=== PATIENT | male | born 1945 | race Caucasian/White ===

== ENCOUNTER 2016-08-18 07:24 | Day surgery (SDC) | payer OTHER ==
[~2016-08-18] VITALS: Ht 170.2 cm; Wt 71.2 kg
[~2016-08-18 07:24] MED LIST: ARTHRITIS MED; NADO20TA PO; PROSTATE MED
[2016-08-18 08:00] VITALS: BP 118/58; PULSE 61; RESP 16; Ht 170.2 cm; Wt 71.2 kg
[2016-08-18 08:33] LABS: ADD SCAN DIFF NO
[2016-08-18] MEDS ORDERED: MIDAZOLAM 1 MG/ML 2 ML INJ ONE (08:40)
[2016-08-18] MEDS ORDERED: FENTAnyl 50 MCG/ML VIAL ONE (08:40)
[2016-08-18] MEDS ORDERED: HEPARIN 1000 UNITS/NS (A-LINE) 1,000 ML ONE (08:40)
[2016-08-18] MEDS ORDERED: LIDOCAINE 1% (MDV) 20 ML INJ ONE (08:40)
[2016-08-18] MEDS ORDERED: FOLI-49 PO (08:43)
[2016-08-18] MEDS ORDERED: TAMS0.4C2 PO (08:43)
[2016-08-18] MEDS ORDERED: MECL-77 PO (08:43)
[2016-08-18] MEDS ORDERED: NADO20TA PO (08:43)
[2016-08-18] MEDS ORDERED: METF-730 PO (08:43)
[2016-08-18 08:49] LABS: ALBUMIN 4.2 g/dl (3.3-4.9)
[2016-08-18 08:51] LABS: POTASSIUM 4.4 mmol/L (3.5-5.1)
[2016-08-18 08:52] LABS: BILIRUBIN,INDIRECT 0.3 mg/dl (0-1.1); BILIRUBIN,TOTAL 0.3 mg/dl (0.2-1.3)
[2016-08-18 08:53] LABS: ALBUMIN/GLOBULIN RATIO 1.5
[2016-08-18 08:58] LABS: CALCIUM 9.4 mg/dl (8.4-10.2); CREATININE 0.74 mg/dl (0.61-1.24)
[2016-08-18 09:04] LABS: BASOPHIL # 0.1 10^3/ul (0.0-0.1); BASOPHILS % 0.8 % (0.0-2.0); EOSINOPHILS # 0.2 10^3/ul (0.0-0.5); EOSINOPHILS % 3.4 % (0.0-7.0); HEMATOCRIT 39.9 % (42.0-52.0); HEMOGLOBIN 13.7 g/dl (14.0-18.0); LYMPHOCYTES # 1.8 10^3/ul (0.8-2.9); LYMPHOCYTES % 28.9 % (15.0-51.0); MEAN CORPUSCULAR HEMOGLOBIN 30.2 pg (29.0-33.0); MEAN CORPUSCULAR HGB CONC 34.3 g/dl (32.0-37.0); MEAN CORPUSCULAR VOLUME 87.9 fl (82.0-101.0); MEAN PLATELET VOLUME 10.6 fl (7.4-10.4); MONOCYTE # 0.4 10^3/ul (0.3-0.9); MONOCYTES % 7.1 % (0.0-11.0); NEUTROPHIL # 3.7 10^3/ul (1.6-7.5); NEUTROPHILS % 59.6 % (39.0-77.0); PLATELET COUNT 181 10^3/UL (140-415); RED BLOOD COUNT 4.54 10^6/ul (4.70-6.10); RED CELL DISTRIBUTION WIDTH 12.7 % (11.5-14.5); WHITE BLOOD COUNT 6.2 10^3/ul (4.8-10.8)
[2016-08-18 09:25] LABS: INR 0.99; PROTIME 13.1 Sec (12.2-14.2)
[2016-08-18 09:26] LABS: PARTIAL THROMBOPLASTIN TIME 31.1 Sec (25.0-35.0)
[2016-08-18] MEDS ORDERED: IODIXANOL LOCM 50 ML BTL ONE (11:43)
[2016-08-18] MEDS ORDERED: HEPARIN 1000 UNITS/ML 10 ML INJ ONE (11:43)
[2016-08-18] MEDS ORDERED: IODIXANOL LOCM 100 ML BTL ONE (11:43)
[2016-08-18] MEDS ORDERED: SOD CHLORIDE 0.9% 1,000 ML IV SCH (12:03)
[2016-08-18] MEDS ORDERED: CLOPIDOGREL 300 MG TAB ONE (12:03)
--- NOTE | 2016-08-18 12:10 | OPPN ---
Date/Time of Note Date/Time of Note DATE: 08/18/16 TIME: 12:09 Operative/Procedure Note Pre-Operative Diagnosis Symptomatic large right popliteal artery aneurysm Post-Operative Diagnosis Same, PVD with stenosis of proximal PT artery Procedure Aortogram, RLE angiogram, repair of R popliteal aneurysm w/ Viabhan stent grafts , angioplasty proximal R PT artery Surgeon: DAMARIS GLEZ MD Findings R popliteal artery aneurysm, R proximal PT arterial severe stenosis Implants/Grafts Viabhan stent grafts Estimated blood loss: minimal Drains: Not applicable Specimens: Not Applicable Complications: None Anesthesia type: [facility] [place] DAMARIS GLEZ MD Aug 18, 2016 12:10
[2016-08-18] MEDS ORDERED: ACETAMINOPHEN 325 MG TAB PO PRN (12:30)
[2016-08-18 12:45] VITALS: BP 160/69; PULSE 99; RESP 16
--- NOTE | 2016-08-18 15:08 | OPR ---
DATE OF OPERATION: 08/18/2016 PREOPERATIVE DIAGNOSIS: Known infrarenal abdominal aortic aneurysm, symptomatic right popliteal artery aneurysm, right 1st toe pain POSTOPERATIVE DIAGNOSIS: Known infrarenal abdominal aortic aneurysm, symptomatic right popliteal artery aneurysm, peripheral vascular disease with a severe stenosis of proximal posterior tibial artery. PROCEDURES: 1. Aortogram. 2. Right lower extremity angiogram. 3. Endovascular repair of right popliteal artery aneurysm with Viabahn covered stents. 4. Angioplasty of severe proximal posterior tibial artery stenosis. SURGEON: Damaris Raphael MD ANESTHESIA: MAC and local. ESTIMATED BLOOD LOSS: Minimal. COMPLICATIONS: None. PREOPERATIVE INDICATIONS: This is a 71-year-old gentleman with diabetes and hypertension with initial presentation of symptomatic right lower extremity popliteal artery aneurysm. The patient also was found to have an infrarenal nominal aortic aneurysm of 4.2 cm on further evaluation. The patient initially did not have any complaint of distal right lower extremity pain; however, in preoperative area he now complains of intermittent right first toe pain. This is recent and he denies constant pain at rest otherwise. He denies wounds. The indications, risks, and benefits of the procedure were discussed with the patient and his family, who understood and agreed to proceed. DESCRIPTION OF PROCEDURE: The patient was properly identified, brought to the angiography suite, and placed in the supine position. The patient's bilateral groins were prepped and draped in the usual sterile fashion. The patient was administered monitored anesthesia care throughout the course of the procedure. Ultrasound was used to evaluate the left femoral artery which was noted to be patent and moderately calcified. An area relatively free of anterior plaque was chosen for access. Local anesthesia was injected into the skin and subcutaneous tissues. Using ultrasound guidance the femoral artery was accessed using a micropuncture needle. A micropuncture wire was then advanced into the iliac system under fluoroscopy. This was followed by a micropuncture sheath. An 0.035 Bentson wire was then advanced into the infrarenal aorta. A 5 -Khmer sheath was then placed. A flush catheter was then followed and aortogram was then performed. This demonstrated an infrarenal abdomen aortic aneurysm along with patent bilateral common iliac, internal iliac, and external iliac arteries. There was a fair amount of tortuosity in the right iliac system. Using a combination of eventually a rim catheter along with an 0.035 floppy Glidewire, the right iliac system was then selected. The catheter was placed into the right external iliac artery and right lower extremity angiogram was then performed. This demonstrated a patent right common femoral artery, right profunda femoral artery, and right superficial femoral artery. The flow from the infrarenal aorta down distally to the lower extremity was noted to be a fairly sluggish overall. The right popliteal artery aneurysm was then noted. The popliteal artery was otherwise patent. It gives off a right anterior tibial artery that is patent artery up to the ankle and continues as a dorsalis pedis for a very short distance in the foot, then occludes at the proximal foot. The TP trunk is patent; however, the peroneal artery is completely occluded without any remnant of it being seen. The posterior tibial artery is patent; however, there was a severe proximal stenosis with reconstituted flow down below, and this is the dominant runoff to the foot as the plantar artery. Given these findings, decision was made for intervention. Using a floppy Glidewire and an angled [place] catheter, the right superficial femoral artery distally was selected. An angled stiff Glidewire was then exchanged for the wire. The catheter and then the 5-Khmer sheath were then removed and a 7- Khmer x 65 cm sheath was then advanced. The patient was then systemically heparinized with therapeutic dosage. Using the floppy Glidewire and the [place] catheter, the popliteal aneurysm was traversed, and the wire was placed into the right anterior tibial artery proximally. The catheter was then advanced and this was exchanged for V18 wire. The V18 wire was placed into the mid anterior tibial artery. Over the V18 wire, the Viabahn stents were to be placed. Angiography with measurements of the luminal diameter demonstrated that a 6 x 100 mm stent was to be used distally into the below-knee popliteal artery. Proximally a 7 x 100 mm Viabahn stent was to be used. These were deployed to the appropriate areas and initially there was a good result with seal of the aneurysm. Next, attention was turned towards the proximal posterior tibial artery lesion. Given that this was the patient's dominant runoff and outflow along with patient's new symptoms of right first toe pain it was decided that intervention was indicated. The Viabahn devices were removed, and an 0.035 [place] catheter was then advanced. However, as with advancement of the [place] catheter, the catheter would not advance past the proximal Viabahn stent. In addition, it appeared that Viabahn stent may have migrated distally somewhat such that now it was within the more dilated portion of the artery. Angiography confirmed this and now was filling up the right popliteal aneurysm sac. The plan was to repair the distal stenotic lesion and then extend the Viabahn stent more proximally. Thus the wire was exchanged for an 0.035 floppy Glidewire and a [place] catheter was able to traverse across the stent into the below-knee popliteal and into the posterior tibial artery. An 0.014 Command wire was then exchanged along with an 0.014 support catheter. Using this combination, the proximal posterior tibial artery lesion was crossed and angiography confirmed the presence of the devices in the true lumen. A 2.5 x 40 mm followed by a 3 x 40 mm balloon were used for angioplasty of this area with improvement in luminal diameter and flow. Once this was accomplished, the attention was turned back towards the proximal aspect of the popliteal aneurysm. The 0.014 wire was then exchanged for an 0.018 wire again over an angled [place] catheter. The Viabhan stents were extended using a 7 x 50 mm Viabahn stent. Post- dilatation of the stents was performed previously and at the end using a 7 x 150 mm balloon. After this was done, there was good flow throughout the stent and no filling of the popliteal aneurysm. The distal outflow was improved and intact. There was no evidence of distal embolization. Given these findings, the V18 wire was removed and an 0.035 wire was readvanced, and the sheath was retracted back into the right iliac system over the wire. The wire was readvanced into the infrarenal aorta. Angiography of the left groin demonstrated that it was amenable to a closure device. Thus a ProGlide Perclose closure device was then advanced. It was deployed with good hemostasis. Additional manual compression was applied for additional hemostasis. The patient tolerated the procedure well and was transferred to recovery in good condition. There were no immediate complications. Dictated By: DAMARIS ALFARO/JOSEY Conf#: [id number] DID#: [id number] JOSHUA
== END 2016-08-18 17:00 | disposition home or self-care (01) ==
LOC: SDS 07:24
PROVIDERS: ATTEND Surgery
DX: I71.4 Abdominal aortic aneurysm, without rupture (principal); I77.1 Stricture of artery; E11.9 Type 2 diabetes mellitus without complications; I10 Essential (primary) hypertension; F17.200 Nicotine dependence, unspecified, uncomplicated
CPT/HCPCS: 37226; 37228; 75710; 80053; 82962; 85025; 85610; 85730; C1725; C1760; C1769; C1875; C1887; C1894; J1644; J2250; J3010; Q9967; Z7610

== ENCOUNTER 2016-09-02 16:54 | Inpatient (IN) | END 2016-09-04 14:22 | disposition home or self-care (01) | DRG 271 | DX: T82.868A Thrombosis due to vascular prosthetic devices, implants and grafts, initial encounter (principal); I74.3 Embolism and thrombosis of arteries of the lower extremities; E11.9 Type 2 diabetes mellitus without complications; I10 Essential (primary) hypertension; N40.0 Benign prostatic hyperplasia without lower urinary tract symptoms; F32.9 Major depressive disorder, single episode, unspecified; I71.4 Abdominal aortic aneurysm, without rupture; I25.10 Atherosclerotic heart disease of native coronary artery without angina pectoris; Y83.2 Surgical operation with anastomosis, bypass or graft as the cause of abnormal reaction of the patient, or of later complication, without mention of misadventure at the time of the procedure; Y92.239 Unspecified place in hospital as the place of occurrence of the external cause ==

== ENCOUNTER 2017-01-31 10:49 | Inpatient (IN) | payer OTHER ==
[~2017-01-31] VITALS: Ht 172.7 cm; Wt 70.5 kg
[~2017-01-31 10:49] MED LIST changes: +APIX5TAB PO; -ARTHRITIS MED; +ASPI-664 PO; +CITA20TA11 PO; +DICL75TA2 PO; +FOLI-49 PO; +MECL-77 PO; +METF-730 PO; -PROSTATE MED; +TAMS0.4C2 PO
[2017-01-31] MEDS ORDERED: SOD CHLORIDE 0.9% 500 ML IV STA (13:21)
[2017-01-31 13:36] LABS: BASOPHIL # 0.1 10^3/ul (0.0-0.1); BASOPHILS % 0.6 % (0.0-2.0); EOSINOPHILS # 0.3 10^3/ul (0.0-0.5); EOSINOPHILS % 3.4 % (0.0-7.0); HEMATOCRIT 35.1 % (42.0-52.0); HEMOGLOBIN 11.4 g/dl (14.0-18.0); LYMPHOCYTES # 1.8 10^3/ul (0.8-2.9); LYMPHOCYTES % 20.9 % (15.0-51.0); MEAN CORPUSCULAR HGB CONC 32.5 g/dl (32.0-37.0); MEAN CORPUSCULAR VOLUME 80.1 fl (82.0-101.0); MEAN PLATELET VOLUME 9.4 fl (7.4-10.4); MONOCYTE # 0.7 10^3/ul (0.3-0.9); MONOCYTES % 8.3 % (0.0-11.0); NEUTROPHIL # 5.7 10^3/ul (1.6-7.5); NEUTROPHILS % 66.5 % (39.0-77.0); PLATELET COUNT 268 10^3/UL (140-415); RED BLOOD COUNT 4.38 10^6/ul (4.70-6.10); RED CELL DISTRIBUTION WIDTH 14.6 % (11.5-14.5); WHITE BLOOD COUNT 8.6 10^3/ul (4.8-10.8)
[2017-01-31 13:51] LABS: INR 1.05; PROTIME 13.7 Sec (12.2-14.2); PT RATIO 1.1
[2017-01-31 13:56] LABS: ALANINE AMINOTRANSFERASE 23 IU/L (13-69); ALBUMIN 4.1 g/dl (3.3-4.9); ALBUMIN/GLOBULIN RATIO 1.07; ALKALINE PHOSPHATASE 54 IU/L (42-121); ANION GAP 18 (8-16); ASPARTATE AMINO TRANSFERASE 27 IU/L (15-46); BILIRUBIN,INDIRECT 0.2 mg/dl (0-1.1); BILIRUBIN,TOTAL 0.2 mg/dl (0.2-1.3); BLOOD UREA NITROGEN 14 mg/dl (7-20); CALCIUM 9.4 mg/dl (8.4-10.2); CARBON DIOXIDE 29 mmol/L (21-31); CHLORIDE 97 mmol/L (97-110); CREATININE 0.86 mg/dl (0.61-1.24); GLUCOSE 110 mg/dl (70-220); POTASSIUM 4.6 mmol/L (3.5-5.1); SODIUM 139 mmol/L (135-144); TOTAL PROTEIN 7.9 g/dl (6.1-8.1)
[2017-01-31 13:59] LABS: PARTIAL THROMBOPLASTIN TIME 29.4 Sec (25.0-35.0)
[2017-01-31 14:10] LABS: TROPONIN-I < 0.012 ng/ml (0.00-0.12)
[2017-01-31] MEDS ORDERED: SOD CHLORIDE 0.9% 100 ML ONE (14:19)
[2017-01-31] MEDS ORDERED: IOHEXOL 100 ML ONE (14:19)
[2017-01-31] MEDS ORDERED: CLOP75TA27 PO (14:25)
[2017-01-31] MEDS ORDERED: FER325 PO (14:29)
--- NOTE | 2017-01-31 14:30 | ERA ---
ER Documentation Chief Complaint Date/Time DATE: 01/31/17 TIME: 14:27 Chief Complaint sob x 3 weeks HPI 71-year-old male who presents with chest pain and shortness of breath for at least 3 weeks if not longer for 1-2 months. The patient is a history of vasculopathy and had vascular surgery approximately 3-4 months ago. Since then he has noted shortness of breath has had some weight loss. Family has noted a right supraclavicular lymph node. The patient is a long-term smoker and has COPD. Symptoms have been progressive over the past 3-4 weeks. No fevers or chills. The patient had a recent hospitalization for chest pain with a negative cardiac workup including negative stress test. The chest pain is described as pleuritic, sharp occasional and nonexertional, shortness of breath is intermittent as well. ROS All systems reviewed and are negative except as per history of present illness. Medications Home Meds Active Scripts Apixaban* (Eliquis*) 5 Mg Tablet, 5 MG PO BID for 28 Days, TAB Prov:NEDA VALVERDE MD 09/04/16 Reported Medications Ferrous Sulfate* (Ferrous Sulfate*) 325 Mg Tabec, 325 MG PO DAILY, TAB 01/31/17 Clopidogrel Bisulfate (Clopidogrel) 75 Mg Tablet, 75 MG PO DAILY, #30 TAB 01/31/17 Diclofenac Sodium* (Diclofenac Sodium*) 75 Mg Tablet.dr, 75 MG PO BID, #60 TAB 09/02/16 Citalopram Hydrobromide* (Celexa*) 20 Mg Tablet, 20 MG PO DAILY, #30 TAB 09/02/16 Aspirin* (Aspirin* EC) 81 Mg Tablet.dr, 81 MG PO DAILY, TAB 09/02/16 Folic Acid* (Folic Acid*) 1 Mg Tablet, 1 MG PO DAILY, TAB 08/18/16 Metformin HCl (Metformin HCl ER) 500 Mg [id number], 500 MG PO, TAB 08/18/16 Meclizine Hcl* (Meclizine Hcl*) 25 Mg Tablet, 25 MG PO BID Y for DIZZINESS, TAB 08/18/16 Tamsulosin Hcl* (Tamsulosin Hcl*) 0.4 Mg Cap.er.24h, 0.4 MG PO DAILY, CAP 08/18/16 Nadolol (Nadolol) 20 Mg Tablet, 20 MG PO BID, TAB 08/02/14 Allergies Allergies: Coded Allergies: No Known Allergy (Unverified , 01/31/17) PMhx/Soc History of Surgery: Yes (RLE ANGIOGRAM , STENT ON RPOPLITEAL AREA, BACK SURGERY ) Anesthesia Reaction: No Hx Neurological Disorder: Yes (on meclizine) Hx Respiratory Disorders: No Hx Psychiatric Problems: No Hx Alcohol Use: Yes (occassional) Hx Substance Use: No Hx Tobacco Use: Yes (quit 4 mos ago) Smoking Status: Former smoker FmHx Family History: No diabetes Physical Exam Vitals Vital Signs Date Time Temp Pulse Resp B/P Pulse Ox O2 Delivery O2 Flow Rate FiO2 01/31/17 15:38 58 17 125/62 98 Room Air 01/31/17 14:50 63 17 125/82 95 Room Air 01/31/17 13:30 61 17 130/69 100 Room Air 01/31/17 10:52 98.6 66 18 115/56 98 Physical Exam General: Well developed, well nourished, no acute distress Head: Normocephalic, atraumatic. Eyes: Pupils equally reactive, EOM intact ENT: Moist mucous membranes Neck: Supple, no lymphadenopathy Respiratory: Lungs clear bilaterally, no distress Cardiovascular: RRR, no murmurs, rubs, or gallops Abdominal: Soft, non-tender, non-distended, no peritoneal signs : Deferred MSK: No edema, no unilateral swelling, 5/5 strength Neurologic: Alert and oriented, moving all extremities, normal speech, no focal weakness, no cerebellar signs Skin: No rash, right-sided supraclavicular lymphadenopathy Psych: Normal mood Result Diagram: 01/31/17 1320 01/31/17 1320 Results 24 hrs Laboratory Tests Test 01/31/17 13:20 White Blood Count 8.610^3/ul Red Blood Count 4.3810^6/ul Hemoglobin 11.4g/dl Hematocrit 35.1% Mean Corpuscular Volume 80.1fl Mean Corpuscular Hemoglobin 26.0pg Mean Corpuscular Hemoglobin Concent 32.5g/dl Red Cell Distribution Width 14.6% Platelet Count 36601^3/UL Mean Platelet Volume 9.4fl Neutrophils % 66.5% Lymphocytes % 20.9% Monocytes % 8.3% Eosinophils % 3.4% Basophils % 0.6% Nucleated Red Blood Cells % 0.0/100WBC Neutrophils # 5.710^3/ul Lymphocytes # 1.810^3/ul Monocytes # 0.710^3/ul Eosinophils # 0.310^3/ul Basophils # 0.110^3/ul Nucleated Red Blood Cells # 0.010^3/ul Prothrombin Time 13.7Sec Prothrombin Time Ratio 1.1 INR International Normalized Ratio 1.05 Activated Partial Thromboplast Time 29.4Sec Sodium Level 139mmol/L Potassium Level 4.6mmol/L Chloride Level 97mmol/L Carbon Dioxide Level 29mmol/L Anion Gap 18 Blood Urea Nitrogen 14mg/dl Creatinine 0.86mg/dl Glucose Level 110mg/dl Calcium Level 9.4mg/dl Total Bilirubin 0.2mg/dl Direct Bilirubin 0.00mg/dl Indirect Bilirubin 0.2mg/dl Aspartate Amino Transf (AST/SGOT) 27IU/L Alanine Aminotransferase (ALT/SGPT) 23IU/L Alkaline Phosphatase 54IU/L Troponin I < 0.012ng/ml Total Protein 7.9g/dl Albumin 4.1g/dl Globulin 3.80g/dl Albumin/Globulin Ratio 1.07 Current Medications Medications (Trade) Dose Ordered Sig/Kraig Route PRN Reason Start Time Stop Time Status Last Admin Dose Admin Sodium Chloride 500 ml @ 500 mls/hr Q1H STAT IV 01/31/17 13:21 01/31/17 14:20 DC 01/31/17 13:37 Iohexol 100 ml @ ud STK-MED ONCE .ROUTE 01/31/17 14:19 01/31/17 14:20 DC Sodium Chloride (NS) 100 ml @ ud STK-MED ONCE .ROUTE 01/31/17 14:19 01/31/17 14:20 DC Procedures/MDM EKG, MONITORS, & DIAGNOSTIC IMAGING: EKG: I reviewed and interpreted a 12-lead EKG. Rhythm: Normal sinus rhythm Ectopy: None Intervals: No abnormalities ST segments: No elevations or depressions T waves: No contiguous inversions Chest x-ray: I reviewed and interpreted a 1 view of the chest Mediastinum: No enlargement Cardiac silhouette: No cardiomegaly Airspace: Clear lung westfall bilaterally without evidence of pneumothorax Bones: No evidence of fracture CTPA IMPRESSION: 1. 2 cm exophytic nodule in the upper pole right kidney may represent hyperdense cyst or mass. Multiphase renal protocol CT is suggested for further evaluation. 2. 5 ml partially obstructive calculus in the mid-left ureter. 3. Mild left hydronephrosis. 4. Inflammatory change around the left kidney may indicate pyelonephritis. 5. Small hiatal hernia. 6. Moderate atherosclerotic peripheral vascular disease. 7. 2.3 cm benign-appearing cyst in the lower pole of the right kidney. 8. Previous cholecystectomy. 9. Enlarged prostate gland. Correlation with physical exam and laboratory testing is suggested. 10. Small free fluid in pelvic cul-de-sac of indeterminate etiology, possibly with related to inflammatory change around the left kidney. Findings discussed Dr. Herring on 01/31/2017 at 1529 hours. RPTAT: QQ LAB INTERPRETATION: No leukocytosis MEDICAL DECISION MAKING: The patient presents with several weeks of chest pain and shortness of breath. He had a recent negative cardiac workup. His symptoms seem to be atypical and are more concerning for possible pulmonary embolism given surgery history versus malignancy given supraclavicular lymphadenopathy. I believe the patient will benefit from EKG and troponin. I believe the patient benefit from a CTPA study to rule out pulmonary embolism and evaluate and screen for possible malignancy. ER COURSE: The patient CT imaging is concerning for metastatic lung malignancy. The patient's family was informed. The patient's family member has explained this to the patient and her language. They have been counseled on the likely expected course and I would recommend hospitalization for further malignancy workup. I kept the patient and/or family informed of laboratory and diagnostic imaging results throughout the emergency room course. DISPOSITION PLAN: Medical surgical admission CONSULTATION: Accepting care team and consultations: I discussed the current laboratory data, diagnostic imaging and emergency care provided. Admitting team: Dr. Valverde Admitting team indication: Insurance directed, [facility] Departure Diagnosis: Primary Impression: Lung malignancy Qualified Code: C34.11 - Malignant neoplasm of upper lobe of right lung Additional Impression: Shortness of breath Condition: Stable JEREMY HERRING MD Jan 31, 2017 14:30
--- NOTE | 2017-01-31 14:52 | RADRPT ---
PROCEDURE: XR Chest. CLINICAL INDICATION: Chest pain TECHNIQUE: AP view of the chest was performed. COMPARISON: 09/02/2016. FINDINGS: The lungs are clear. The lung volumes are normal. There is prominence of the right paratracheal re gion and a subtle mass cannot be entirely excluded. The heart size is normal. The osseous structur es are intact. IMPRESSION: Prominence of the right paratracheal region and a subtle mass cannot be entirely excluded. CT thora x is recommended for additional evaluation. RPTAT: QQ .Megan Burton MD, MD Date Time Electronically viewed and signed by .Megan Burton MD, on 01/31/2017 14:52 .M/
--- NOTE | 2017-01-31 16:00 | RADRPT ---
PROCEDURE: CT Chest Angiogram with contrast. CLINICAL INDICATION: Shortness of breath TECHNIQUE: CT scan of the chest with contrast was performed on a multidetector high-resolution CT scanner. The patient was scanned following the uncomplicated intravenous administration of 100 cc o f Isovue 300 contrast. Coronal and sagittal reformatted images were obtained from the axial source images. Additional 3D volumetric renderings were created. Images were reviewed on a [employer] PACS workstation. The total exam CTDI equals 63/10 mGy and the total exam DLP equals 420 mGy-cm. O ne or more of the following dose reduction techniques were used: Automated exposure control, Adjustm ent of the mA and/or kV according to patient size, and/or use of iterative reconstruction technique. COMPARISON: Correlation chest x-ray earlier today FINDINGS: Technically adequate exam for the evaluation of the pulmonary arteries to the segmental level. No in traluminal filling defects are seen. Right upper lung mass measuring 3.7 x 4.1 cm with large coalescent mediastinal lymphadenopathy seen most notably in the right paratracheal region. Additional scattered bilateral pulmonary nodules are visualized with largest in the right lower lobe measuring 11 mm and left lower lobe measuring 10 mm . Enlarged right supraclavicular lymph nodes are seen. No significant pleural or pericardial effusion. Coronary arterial and aortic atherosclerosis. Degenerative changes to the thoracic spine are seen. IMPRESSION: No evidence of pulmonary embolus. Right upper lung mass with mediastinal and right supraclavicular lymphadenopathy. Additional smaller bilateral pulmonary nodules are seen. The findings are concerning for a bronchogenic neoplasm with metastasis. A call report was made to Dr. FARRIS at 01/31/2017 3:59:31 PM. RPTAT: AA .Troy Reed MD, MD Date Time Electronically viewed and signed by .Troy Reed MD, MD on 01/31/2017 16:00 .T/
[2017-01-31] MEDS ORDERED: ONDANSETRON 4 MG INJ IV PRN ×2 (17:00→17:30)
[2017-01-31] MEDS ORDERED: ACETAMINOPHEN 325 MG TAB PO PRN ×2 (17:00→17:30)
--- NOTE | 2017-01-31 17:11 | QN ---
Documentation Comment [id number] NEDA VALVERDE MD Jan 31, 2017 17:11
[2017-01-31] MEDS ORDERED: NACL 0.9% 3 ML SYG IV SCH (17:30)
[2017-01-31] MEDS ORDERED: BISACODYL (EC) 5 MG TAB PO PRN (17:30)
[2017-01-31] MEDS ORDERED: MECLIZINE 25 MG TAB PO PRN (17:30)
[2017-01-31] MEDS ORDERED: MAGNESIUM HYDROXIDE 30ML CUP PO PRN (17:30)
[2017-01-31] MEDS ORDERED: DOCUSATE SODIUM 100 MG CAP PO PRN (17:30)
[2017-01-31] MEDS: INSULIN ASPART [NOVOLOG] 3 ML PEN SC SCH ×2 (18:00→21:00)
[2017-01-31] MEDS ORDERED: GLUCOSE GEL 15 GRAM TUBE PO PRN ×2 (18:30)
[2017-01-31] MEDS ORDERED: DEXTROSE 50% 50 ML SYRINGE IV PRN ×2 (18:30)
[2017-01-31] MEDS ORDERED: GLUCAGON 1 MG INJ IM PRN (18:30)
[2017-01-31] MEDS ORDERED: GLUCOSE GEL 15 GRAM TUBE BUCCAL PRN (18:30)
[2017-01-31 18:48] VITALS: Ht 172.7 cm; Wt 70.5 kg
[2017-01-31 19:00] VITALS: BP 145/65; PULSE 68; RESP 18
[2017-01-31 19:37] LABS: CREATINE KINASE 25 IU/L (23-200)
[2017-01-31 19:49] VITALS: BP 139/65; RESP 16
[2017-01-31 19:51] LABS: TROPONIN-I < 0.012 ng/ml (0.00-0.12)
[2017-01-31] MEDS: DICLOFENAC (EC) 75 MG TAB PO SCH (21:00)
[2017-01-31] MEDS: APIXABAN 5 MG TABLET PO SCH (21:00)
[2017-01-31] MEDS: NADOLOL 40 MG TAB PO SCH (21:00)
[2017-01-31] MEDS: TAMSULOSIN (SR) 0.4 MG CAP PO SCH (21:00)
[2017-02-01 00:04] LABS: CREATINE KINASE 26 IU/L (23-200)
[2017-02-01 00:25] LABS: CK-MB 0.25 ng/ml (0.0-2.4); TROPONIN-I < 0.012 ng/ml (0.00-0.12)
[2017-02-01 01:32] VITALS: BP 115/57; RESP 16
[2017-02-01] MEDS: ACCU-CHEK XX SCH (02:00)
[2017-02-01] MEDS: PANTOPRAZOLE (EC) 40 MG TAB PO SCH (05:42)
[2017-02-01 07:20] VITALS: BP 104/55; RESP 18
--- NOTE | 2017-02-01 07:53 | HP ---
DATE OF ADMISSION: 01/31/2017 HISTORY OF PRESENT ILLNESS: Edd Duran is a 71-year-old male who has a history of PVD, and a history of smoking in the past who presented complaining of chest pain. The patient was seen in the emergency room. The patient is a patient of Dr. Ellis Born with chest pain and shortness of breath for the last 3 weeks. The patient also has a right supraclavicular lymph node. The patient has a history of COPD. Denies any cough or sputum production. The patient is noted to have lung masses and being admitted for further management. PAST MEDICAL HISTORY: Positive for diabetes mellitus. The patient's other history is positive for a history of aortogram with right lower extremity angiogram, percutaneous thombosed right popliteal artery stent, angioplasty of the popliteal artery stent, history of PVD, anemia, diabetes. ALLERGIES: neg FAMILY HISTORY: neg SOCIAL HISTORY: Smoker. MEDICATION: Listed as: 1. Apixaban. 2. Aspirin. 3. Celexa. 4. Diclofenac. 5. Iron sulfate 40. 6. Calcium. 7. Meclizine. 8. Metformin. 9. dm meds. . REVIEW OF SYSTEMS: HEENT: Normocephalic . RESPIRATORY: Positive for cough. No hemoptysis. CARDIOVASCULAR: Unremarkable ABDOMINAL: Unremarkable EXTREMITIES: Unremarkable. PHYSICAL EXAMINATION: GENERAL: The patient is awake, alert. VITAL SIGNS: Stable. Pulse 54, blood pressure 130_/59. HEENT: Head is atraumatic, normocephalic. Pupils equal and reactive to light. NECK: Supple. There is no JVD. LUNGS: Clear. CARDIAC: S1, S2 normal. ABDOMEN: Soft, nontender. Bowel sounds present. No palpable mass, hepatosplenomegaly tenderness. EXTREMITIES: There is no cyanosis, clubbing or edema. NEUROLOGIC: The patient is awake, alert, no focal deficits. LABORATORY DATA: Shows the patient has hematocrit 35.1. Sodium 130,k 4.6. Chest x-ray shows the patient has right and septal mass cannot be excluded. CT chest shows no evidence of pulmonary embolus, right upper lung mass with mediastinal _ right supraclavicular lymphadenopathy. IMPRESSION: 1. The patient has a lung mass. 2. chest pain. 3. Diabetes mellitus. 4. hx smoking. 5. Anemia. PLAN: At this point is to admit this patient. Home medications will be reviewed and continued, sliding scale, pulmonary consultation, possible lung biopsy, oncology consultation once biopsy is done. Dictated By: Nahid Arenas MD /bettyt/marco /Document#: [id number] [id number]
[2017-02-01] MEDS: INSULIN ASPART [NOVOLOG] 3 ML PEN SC SCH ×4 (08:15→21:00)
[2017-02-01] MEDS: FOLIC ACID 1 MG TAB PO SCH (08:59)
[2017-02-01] MEDS: ASPIRIN (EC) 81 MG TAB PO SCH (08:59)
[2017-02-01] MEDS: CLOPIDOGREL 75 MG TAB PO SCH (08:59)
[2017-02-01] MEDS: FERROUS SULFATE (EC) 325 MG TAB PO SCH (08:59)
[2017-02-01] MEDS: CITALOPRAM 20 MG TAB PO SCH (09:00)
[2017-02-01] MEDS: APIXABAN 5 MG TABLET PO SCH (09:00)
[2017-02-01] MEDS: DICLOFENAC (EC) 75 MG TAB PO SCH ×2 (09:04→21:08)
[2017-02-01] MEDS: NADOLOL 40 MG TAB PO SCH ×2 (09:05→21:10)
--- NOTE | 2017-02-01 13:58 | CONS ---
Date/Time of Note Date/Time of Note DATE: 02/01/17 TIME: 13:13 Assessment/Plan Assessment/Plan Chief Complaint/Hosp Course 1. Right upper lung mass with mediastinal and right supraclavicular lymphadenopathy: palpable supraclavicular lymph node; concern for malignancy -biopsy -pulm consult -Onc consult 2. Chest pain: trops neg; likely 2/2 to above -as above 3. Microcytic hypochromic anemia: no beto bleed noted -work up per medicine -monitor and transfuse prn 4. Diabetes -blood sugar optimization Patient seen and examined in collaboration with Dr. Hitesh Willingham. Thank you. Problems: Consultation Date/Type/Reason Admit Date/Time Jan 31, 2017 at 16:34 Date of Consultation: Feb 01, 2017 Type of Consultation: Surgical Reason for Consultation lymph node excision biopsy Hx of Present Illness Edd Duran is a 71 yo man who presents with complaints of chest pain and shortness of breath for the last 3 weeks. He has significant history of COPD. He denies congested cough, hemoptysis, fevers, chills. He reports recent weight loss of [address] chest shows right upper lung mass with mediastinal and right supraclavicular lymphadenopathy. Surgical consult was asked to evaluate to perform biopsy of supraclavicular lymph node. Constitutional: No chills, No diaphoresis Eyes: No visual change ENT: No dysphagia, No sore throat Respiratory: shortness of breath Cardiovascular: No chest pain, No palpitations Gastrointestinal: No diarrhea, No nausea, No vomiting Genitourinary: No hematuria Musculoskeletal: back pain Neurologic: No headache, No syncope Lymphatic: No no complaints Psychological: anxiety Past Medical History diabetes mellitus thombosed right popliteal artery stent history of PVD anemia diabetes COPD Past Surgical History angioplasty of the popliteal artery stent Family History Significant Family History: cancer (lung) Social History Smoking Status: Former smoker Drug Use: none Exam/Review of Systems Vital Signs Vitals Vital Signs Date Time Temp Pulse Resp B/P Pulse Ox O2 Delivery O2 Flow Rate FiO2 02/01/17 07:20 98.2 78 18 104/55 98 01/31/17 19:00 Room Air Intake and Output 01/31/17 01/31/17 02/01/17 15:00 23:00 07:00 Intake Total 240 ml Balance 240 ml Exam Constitutional: alert, oriented Psych: anxiety Head: atraumatic, normocephalic Eyes: nl conjunctiva, nl lids, nl sclera ENMT: mucosa pink and moist Neck: supple Respiratory: normal air movement Cardiovascular: nl pulses, regular rate and rhythm, No edema Gastrointestinal: non-tender, soft Genitourinary - Male: nl penis, nl scrotum Musculoskeletal: nl extremities to inspection Extremities: normal pulses Neurological: nl mental status, nl speech, nl strength Skin: No ecchymosis Lymph: other (palpable supraclavicular lymph node, fixed) Results Result Diagram: 01/31/17 1320 01/31/17 1320 Results 24 hrs Laboratory Tests Test 01/31/17 13:20 01/31/17 18:20 01/31/17 19:06 01/31/17 22:15 White Blood Count 8.6 Red Blood Count 4.38 L Hemoglobin 11.4 L Hematocrit 35.1 L Mean Corpuscular Volume 80.1 L Mean Corpuscular Hemoglobin 26.0 L Mean Corpuscular Hemoglobin Concent 32.5 Red Cell Distribution Width 14.6 H Platelet Count 268 # Mean Platelet Volume 9.4 Neutrophils % 66.5 Lymphocytes % 20.9 Monocytes % 8.3 Eosinophils % 3.4 Basophils % 0.6 Nucleated Red Blood Cells % 0.0 Neutrophils # 5.7 Lymphocytes # 1.8 Monocytes # 0.7 Eosinophils # 0.3 Basophils # 0.1 Nucleated Red Blood Cells # 0.0 Prothrombin Time 13.7 Prothrombin Time Ratio 1.1 INR International Normalized Ratio 1.05 Activated Partial Thromboplast Time 29.4 Sodium Level 139 Potassium Level 4.6 Chloride Level 97 Carbon Dioxide Level 29 Anion Gap 18 H Blood Urea Nitrogen 14 Creatinine 0.86 Glucose Level 110 Calcium Level 9.4 Total Bilirubin 0.2 Direct Bilirubin 0.00 Indirect Bilirubin 0.2 Aspartate Amino Transf (AST/SGOT) 27 Alanine Aminotransferase (ALT/SGPT) 23 Alkaline Phosphatase 54 Troponin I < 0.012 < 0.012 Total Protein 7.9 Albumin 4.1 Globulin 3.80 H Albumin/Globulin Ratio 1.07 Bedside Glucose 177 159 Creatine Kinase 25 Creatine Kinase Index 1.2 Creatinine Kinase MB (Mass) 0.30 Test 01/31/17 23:23 02/01/17 07:58 02/01/17 12:00 Creatine Kinase 26 Creatine Kinase Index 1.0 Creatinine Kinase MB (Mass) 0.25 Troponin I < 0.012 Bedside Glucose 125 114 Medications Medications Current Medications Apixaban (Eliquis) 5 mg BID PO ; Start 01/31/17 at 21:00 Aspirin (Halfprin) 81 mg DAILY PO Last administered on 02/01/17 08:59; Admin Dose 81 MG; Start 02/01/17 at 09:00 Citalopram Hydrobromide (Celexa) 20 mg DAILY PO ; Start 02/01/17 at 09:00 Clopidogrel Bisulfate (plaVIX) 75 mg DAILY PO Last administered on 02/01/17 08 :59; Admin Dose 75 MG; Start 02/01/17 at 09:00 Diclofenac Sodium (Voltaren) 75 mg BID PO Last administered on 02/01/17 09:04 ; Admin Dose 75 MG; Start 01/31/17 at 21:00 Ferrous Sulfate (Ferrous Sulfate (Ec)) 325 mg DAILY PO Last administered on 08:59; Admin Dose 325 MG; Start 02/01/17 at 09:00 Folic Acid (Folic Acid) 1 mg DAILY PO Last administered on 02/01/17 08:59; Admin Dose 1 MG; Start 02/01/17 at 09:00 Meclizine HCl (Antivert) 25 mg BID PRN PO DIZZINESS; Start 01/31/17 at 17:30 Nadolol (Corgard) 20 mg BID PO Last administered on 02/01/17 09:05; Admin Dose 20 MG; Start 01/31/17 at 21:00 Tamsulosin HCl (Flomax) 0.4 mg HS PO ; Start 01/31/17 at 21:00 Ondansetron HCl (Zofran Inj) 4 mg Q6H PRN IV NAUSEA AND/OR VOMITING; Start 06/07 at 17:30 Acetaminophen (Tylenol Tab) 650 mg Q6H PRN PO PAIN LEVEL 1-3 OR FEVER; Start at 17:30 Docusate Sodium (Colace) 100 mg Q12H PRN PO CONSTIPATION; Start 01/31/17 at 17: 30 Magnesium Hydroxide (Milk Of Mag) 30 ml DAILY PRN PO CONSTIPATION; Start at 17:30 Bisacodyl (Dulcolax) 5 mg DAILY PRN PO CONSTIPATION; Start 01/31/17 at 17:30 Pantoprazole (Protonix Tab) 40 mg DAILY@06 PO Last administered on 02/01/17t 05 :42; Admin Dose 40 MG; Start 02/01/17 at 06:00 Diagnostic Test (Pha) (Accu-Chek) 1 ea 02 XX ; Start 02/01/17 at 02:00 Miscellaneous Information 1 ea NOTE XX ; Start 01/31/17 at 18:30 Glucose (Glutose) 15 gm Q15M PRN PO DECREASED GLUCOSE; Start 01/31/17 at 18:30 Glucose (Glutose) 22.5 gm Q15M PRN PO DECREASED GLUCOSE; Start 01/31/17 at 18: 30 Dextrose (D50w Syringe) 25 ml Q15M PRN IV DECREASED GLUCOSE; Start 01/31/17 at 18:30 Dextrose (D50w Syringe) 50 ml Q15M PRN IV DECREASED GLUCOSE; Start 01/31/17 at 18:30 Glucagon (Glucagen) 1 mg Q15M PRN IM DECREASED GLUCOSE; Start 01/31/17 at 18:30 Glucose (Glutose) 15 gm Q15M PRN BUCCAL DECREASED GLUCOSE; Start 01/31/17 at 18 :30 ANGELICA SOTOMAYOR NP Feb 01, 2017 13:23
[2017-02-01 14:36] VITALS: BP 97/49; RESP 18
--- NOTE | 2017-02-01 14:59 | CONS ---
Date/Time of Note Date/Time of Note DATE: 02/01/17 TIME: 14:51 Assessment/Plan Assessment/Plan Chief Complaint/Hosp Course Assessment 1. Right hilar lung mass concerning for likely bronchogenic carcinoma. 2. History of peripheral arterial disease. Currently on anticoagulation. 3. Likely underlying COPD. Plan 1. Hold Eliquis 2. General surgery evaluation for excision biopsy of supraclavicular mass 3. If unable to obtain diagnosis from supraclavicular lymph node biopsy the patient will likely need mediastinoscopy given the location of central lung mass is not safe to approach from CT-guided needle approach is not amenable to bronchoscopy. Case was discussed at length with patient and his daughter at bedside. Problems: Consultation Date/Type/Reason Admit Date/Time Jan 31, 2017 at 16:34 Date of Consultation: Feb 01, 2017 Reason for Consultation Need for lymph node biopsy Hx of Present Illness 71-year-old gentleman with an extensive tobacco history accompanied by peripheral arterial disease who had undergone right popliteal artery angioplasty and stent placement 4 months ago at which time patient had stopped smoking. Since that time his daughter states he has had general decline in his condition with several pound weight loss generalized fatigue with increasing cough and congestion. Here he presented with an abnormal chest x-ray widened mediastinum concerning for mass. CT of the chest was performed demonstrated right upper lobe mass adjacent to the mediastinum with supraclavicular lymphadenopathy. Findings of consistent with probable malignancy. Patient states he stopped smoking approximately 4 months ago prior to that has been for many years. Denies any hemoptysis hematemesis no recent travel history no sick contacts no prior history of TB. As above. Constitutional: No chills, No diaphoresis Eyes: No visual change ENT: No dysphagia, No sore throat Respiratory: shortness of breath Cardiovascular: No chest pain, No palpitations Gastrointestinal: No diarrhea, No nausea, No vomiting Genitourinary: No hematuria Musculoskeletal: back pain Neurologic: No headache, No syncope Lymphatic: No no complaints Psychological: anxiety Past Medical History Peripheral arterial disease COPD Past Surgical History Angioplasty and stent placement popliteal artery Social History Smoking Status: Former smoker Drug Use: none Exam/Review of Systems Vital Signs Vitals Vital Signs Date Time Temp Pulse Resp B/P Pulse Ox O2 Delivery O2 Flow Rate FiO2 02/01/17 07:20 98.2 78 18 104/55 98 01/31/17 19:00 Room Air Intake and Output 01/31/17 01/31/17 02/01/17 15:00 23:00 07:00 Intake Total 240 ml Balance 240 ml Exam GENERAL: Well-nourished well-developed gentleman comfortable at rest no acute distress VITAL SIGNS: per chart NECK: Supple. No JVD palpable lymphadenopathy right supraclavicular lymph node CARDIAC EXAM: S1, S2. No added sounds or murmurs. CHEST: clear bilaterally, No added sounds, rales or wheezes ABDOMEN: Soft, nontender. No guarding or rebound. EXTREMITIES: No cyanosis, clubbing or edema. NEUROLOGIC: Generalized weakness. No focal deficits. Results CT chest findings noted. Result Diagram: 01/31/17 1320 01/31/17 1320 Results 24 hrs Laboratory Tests Test 01/31/17 18:20 01/31/17 19:06 01/31/17 22:15 01/31/17 23:23 Bedside Glucose 177 159 Creatine Kinase 25 26 Creatine Kinase Index 1.2 1.0 Creatinine Kinase MB (Mass) 0.30 0.25 Troponin I < 0.012 < 0.012 Test 02/01/17 07:58 02/01/17 12:00 Bedside Glucose 125 114 Medications Medications Current Medications Apixaban (Eliquis) 5 mg BID PO ; Start 01/31/17 at 21:00 Aspirin (Halfprin) 81 mg DAILY PO Last administered on 02/01/17 08:59; Admin Dose 81 MG; Start 02/01/17 at 09:00 Citalopram Hydrobromide (Celexa) 20 mg DAILY PO ; Start 02/01/17 at 09:00 Clopidogrel Bisulfate (plaVIX) 75 mg DAILY PO Last administered on 02/01/17 08 :59; Admin Dose 75 MG; Start 02/01/17 at 09:00 Diclofenac Sodium (Voltaren) 75 mg BID PO Last administered on 02/01/17 09:04 ; Admin Dose 75 MG; Start 01/31/17 at 21:00 Ferrous Sulfate (Ferrous Sulfate (Ec)) 325 mg DAILY PO Last administered on 08:59; Admin Dose 325 MG; Start 02/01/17 at 09:00 Folic Acid (Folic Acid) 1 mg DAILY PO Last administered on 02/01/17 08:59; Admin Dose 1 MG; Start 02/01/17 at 09:00 Meclizine HCl (Antivert) 25 mg BID PRN PO DIZZINESS; Start 01/31/17 at 17:30 Nadolol (Corgard) 20 mg BID PO Last administered on 02/01/17 09:05; Admin Dose 20 MG; Start 01/31/17 at 21:00 Tamsulosin HCl (Flomax) 0.4 mg HS PO ; Start 01/31/17 at 21:00 Ondansetron HCl (Zofran Inj) 4 mg Q6H PRN IV NAUSEA AND/OR VOMITING; Start 06/07 at 17:30 Acetaminophen (Tylenol Tab) 650 mg Q6H PRN PO PAIN LEVEL 1-3 OR FEVER; Start at 17:30 Docusate Sodium (Colace) 100 mg Q12H PRN PO CONSTIPATION; Start 01/31/17 at 17: 30 Magnesium Hydroxide (Milk Of Mag) 30 ml DAILY PRN PO CONSTIPATION; Start at 17:30 Bisacodyl (Dulcolax) 5 mg DAILY PRN PO CONSTIPATION; Start 01/31/17 at 17:30 Pantoprazole (Protonix Tab) 40 mg DAILY@06 PO Last administered on 02/01/17 05 :42; Admin Dose 40 MG; Start 02/01/17 at 06:00 Diagnostic Test (Pha) (Accu-Chek) 1 ea 02 XX ; Start 02/01/17 at 02:00 Miscellaneous Information 1 ea NOTE XX ; Start 01/31/17 at 18:30 Glucose (Glutose) 15 gm Q15M PRN PO DECREASED GLUCOSE; Start 01/31/17 at 18:30 Glucose (Glutose) 22.5 gm Q15M PRN PO DECREASED GLUCOSE; Start 01/31/17 at 18: 30 Dextrose (D50w Syringe) 25 ml Q15M PRN IV DECREASED GLUCOSE; Start 01/31/17 at 18:30 Dextrose (D50w Syringe) 50 ml Q15M PRN IV DECREASED GLUCOSE; Start 01/31/17 at 18:30 Glucagon (Glucagen) 1 mg Q15M PRN IM DECREASED GLUCOSE; Start 01/31/17 at 18:30 Glucose (Glutose) 15 gm Q15M PRN BUCCAL DECREASED GLUCOSE; Start 01/31/17 at 18 :30 JACQUELINE ADDISON MD, [facility] Feb 01, 2017 14:59
--- NOTE | 2017-02-01 16:37 | PN ---
Date/Time of Note Date/Time of Note DATE: 02/01/17 TIME: 16:35 Assessment/Plan VTE Prophylaxis VTE Prophylaxis Intervention: LMWH, other Lines/Catheters IV Catheter Type (from Nrs): Saline Lock Assessment/Plan Chief Complaint/Hosp Course IMPRESSION: 1. The patient has a lung mass. 2. chest pain.SC R.O 3. Diabetes mellitus. 4. hx smoking. 5. Anemia. PLAN PER PULMONARY Problems: Subjective 24 Hr Interval Summary Respiratory: no complaints, No cough Cardiovascular: no complaints Gastrointestinal: no complaints Exam/Review of Systems Vital Signs Vitals Vital Signs Date Time Temp Pulse Resp B/P Pulse Ox O2 Delivery O2 Flow Rate FiO2 02/01/17 14:36 98.4 63 18 97/49 99 01/31/17 19:00 Room Air Intake and Output 01/31/17 01/31/17 02/01/17 15:00 23:00 07:00 Intake Total 240 ml Balance 240 ml Exam Neck: supple Respiratory: clear to auscultation Cardiovascular: regular rate and rhythm Gastrointestinal: bowel sounds (+), soft Extremities: No edema Results Result Diagram: 01/31/17 1320 01/31/17 1320 Results 24 hrs Laboratory Tests Test 01/31/17 18:20 01/31/17 19:06 01/31/17 22:15 01/31/17 23:23 Bedside Glucose 177 159 Creatine Kinase 25 26 Creatine Kinase Index 1.2 1.0 Creatinine Kinase MB (Mass) 0.30 0.25 Troponin I < 0.012 < 0.012 Test 02/01/17 07:58 02/01/17 12:00 Bedside Glucose 125 114 Medications Medications Current Medications Apixaban (Eliquis) 5 mg BID PO ; Start 01/31/17 at 21:00; Status Future hold Aspirin (Halfprin) 81 mg DAILY PO Last administered on 02/01/17 08:59; Admin Dose 81 MG; Start 02/01/17 at 09:00 Citalopram Hydrobromide (Celexa) 20 mg DAILY PO ; Start 02/01/17 at 09:00 Clopidogrel Bisulfate (plaVIX) 75 mg DAILY PO Last administered on 02/01/17 08 :59; Admin Dose 75 MG; Start 02/01/17 at 09:00 Diclofenac Sodium (Voltaren) 75 mg BID PO Last administered on 02/01/17 09:04 ; Admin Dose 75 MG; Start 01/31/17 at 21:00 Ferrous Sulfate (Ferrous Sulfate (Ec)) 325 mg DAILY PO Last administered on 08:59; Admin Dose 325 MG; Start 02/01/17 at 09:00 Folic Acid (Folic Acid) 1 mg DAILY PO Last administered on 02/01/17 08:59; Admin Dose 1 MG; Start 02/01/17 at 09:00 Meclizine HCl (Antivert) 25 mg BID PRN PO DIZZINESS; Start 01/31/17 at 17:30 Nadolol (Corgard) 20 mg BID PO Last administered on 02/01/17 09:05; Admin Dose 20 MG; Start 01/31/17 at 21:00 Tamsulosin HCl (Flomax) 0.4 mg HS PO ; Start 01/31/17 at 21:00 Ondansetron HCl (Zofran Inj) 4 mg Q6H PRN IV NAUSEA AND/OR VOMITING; Start 06/07 at 17:30 Acetaminophen (Tylenol Tab) 650 mg Q6H PRN PO PAIN LEVEL 1-3 OR FEVER; Start at 17:30 Docusate Sodium (Colace) 100 mg Q12H PRN PO CONSTIPATION; Start 01/31/17 at 17: 30 Magnesium Hydroxide (Milk Of Mag) 30 ml DAILY PRN PO CONSTIPATION; Start at 17:30 Bisacodyl (Dulcolax) 5 mg DAILY PRN PO CONSTIPATION; Start 01/31/17 at 17:30 Pantoprazole (Protonix Tab) 40 mg DAILY@06 PO Last administered on 02/01/17 05 :42; Admin Dose 40 MG; Start 02/01/17 at 06:00 Diagnostic Test (Pha) (Accu-Chek) 1 ea 02 XX ; Start 02/01/17 at 02:00 Miscellaneous Information 1 ea NOTE XX ; Start 01/31/17 at 18:30 Glucose (Glutose) 15 gm Q15M PRN PO DECREASED GLUCOSE; Start 01/31/17 at 18:30 Glucose (Glutose) 22.5 gm Q15M PRN PO DECREASED GLUCOSE; Start 01/31/17 at 18: 30 Dextrose (D50w Syringe) 25 ml Q15M PRN IV DECREASED GLUCOSE; Start 01/31/17 at 18:30 Dextrose (D50w Syringe) 50 ml Q15M PRN IV DECREASED GLUCOSE; Start 01/31/17 at 18:30 Glucagon (Glucagen) 1 mg Q15M PRN IM DECREASED GLUCOSE; Start 01/31/17 at 18:30 Glucose (Glutose) 15 gm Q15M PRN BUCCAL DECREASED GLUCOSE; Start 01/31/17 at 18 :30 NEDA VALVERDE MD Feb 01, 2017 16:36
[2017-02-01 21:00] VITALS: BP 117/57; PULSE 56; RESP 18
[2017-02-01] MEDS: TAMSULOSIN (SR) 0.4 MG CAP PO SCH (21:10)
[2017-02-02 02:00] VITALS: BP 125/58; PULSE 58; RESP 18
[2017-02-02] MEDS: ACCU-CHEK XX SCH (02:00)
[2017-02-02] MEDS: PANTOPRAZOLE (EC) 40 MG TAB PO SCH (05:54)
[2017-02-02 07:19] VITALS: BP 134/59; RESP 18
[2017-02-02] MEDS: INSULIN ASPART [NOVOLOG] 3 ML PEN SC SCH ×4 (08:10→21:00)
[2017-02-02] MEDS: CLOPIDOGREL 75 MG TAB PO SCH (08:41)
[2017-02-02] MEDS: ASPIRIN (EC) 81 MG TAB PO SCH (08:41)
[2017-02-02] MEDS: NADOLOL 40 MG TAB PO SCH ×2 (08:44→21:08)
[2017-02-02] MEDS: CITALOPRAM 20 MG TAB PO SCH (09:00)
[2017-02-02] MEDS: DICLOFENAC (EC) 75 MG TAB PO SCH ×2 (10:50→21:07)
[2017-02-02] MEDS: FOLIC ACID 1 MG TAB PO SCH (10:50)
[2017-02-02] MEDS: FERROUS SULFATE (EC) 325 MG TAB PO SCH (10:51)
--- NOTE | 2017-02-02 11:01 | PN ---
Date/Time of Note Date/Time of Note DATE: 02/02/17 TIME: 10:57 Assessment/Plan Lines/Catheters IV Catheter Type (from [facility]): Saline Lock [place] in Place (from [facility]): No Assessment/Plan Chief Complaint/Hosp Course 1. Right upper lung mass with mediastinal and right supraclavicular lymphadenopathy: palpable supraclavicular lymph node; concern for malignancy -biopsy pending likely tomorrow -pulm consult -Onc consult 2. Chest pain: trops neg; likely 2/2 to above -as above 3. Microcytic hypochromic anemia: no beto bleed noted -work up per medicine -monitor and transfuse prn 4. Diabetes -blood sugar optimization Patient seen and examined in collaboration with Dr. Hitesh Willingham. Thank you. Problems: Subjective 24 Hr Interval Summary Feeling well. ambulating without difficulty or SOB. No cp, palpitations, cough, fevers, chills, fatigue, n/v/d/dysuria. Exam/Review of Systems Vital Signs Vitals Vital Signs Date Time Temp Pulse Resp B/P Pulse Ox O2 Delivery O2 Flow Rate FiO2 02/02/17 07:19 97.5 78 18 134/59 98 02/02/17 02:00 Room Air Intake and Output 02/01/17 02/01/17 02/02/17 15:00 23:00 07:00 Intake Total 960 ml 600 ml Balance 960 ml 600 ml Exam Free Text/Dictation Constitutional: alert, oriented Psych: anxiety Head: atraumatic, normocephalic Eyes: nl conjunctiva, nl lids, nl sclera ENMT: mucosa pink and moist Neck: supple Respiratory: normal air movement Cardiovascular: nl pulses, regular rate and rhythm, No edema Gastrointestinal: non-tender, soft Genitourinary - Male: nl penis, nl scrotum Musculoskeletal: nl extremities to inspection Extremities: normal pulses Neurological: nl mental status, nl speech, nl strength Skin: No ecchymosis Lymph: other (palpable supraclavicular lymph node) Results Result Diagram: 01/31/17 1320 01/31/17 1320 ANGELICA SOTOMAYOR NP Feb 02, 2017 11:01
[2017-02-02 13:54] VITALS: BP 104/56; RESP 16
--- NOTE | 2017-02-02 14:03 | CONS ---
Date/Time of Note Date/Time of Note DATE: 02/02/17 TIME: 14:02 Consult Date/Type/Reason Admit Date/Time Jan 31, 2017 at 16:34 Initial Consult Date 02/01/17 Type of Consultation: Pulmonary Subjective Patient remains stable this morning no new events. Objective Vital Signs Date Time Temp Pulse Resp B/P Pulse Ox O2 Delivery O2 Flow Rate FiO2 02/02/17 13:54 98.1 61 16 104/56 99 02/02/17 02:00 Room Air Intake and Output 02/01/17 02/01/17 02/02/17 15:00 23:00 07:00 Intake Total 960 ml 600 ml Balance 960 ml 600 ml Exam GENERAL: Well-nourished well-developed gentleman comfortable at rest no acute distress VITAL SIGNS: per chart NECK: Supple. No JVD palpable lymphadenopathy right supraclavicular lymph node CARDIAC EXAM: S1, S2. No added sounds or murmurs. CHEST: clear bilaterally, No added sounds, rales or wheezes ABDOMEN: Soft, nontender. No guarding or rebound. EXTREMITIES: No cyanosis, clubbing or edema. NEUROLOGIC: Generalized weakness. No focal deficits. Results/Medications Result Diagram: 01/31/17 1320 01/31/17 1320 Results 24 hrs Laboratory Tests Test 02/01/17 18:06 02/01/17 21:07 02/02/17 08:09 02/02/17 12:07 Bedside Glucose 151 156 125 110 Medications Current Medications Apixaban (Eliquis) 5 mg BID PO ; Start 01/31/17 at 21:00; Status Future hold Aspirin (Halfprin) 81 mg DAILY PO Last administered on 02/02/17 08:41; Admin Dose 81 MG; Start 02/01/17 at 09:00 Citalopram Hydrobromide (Celexa) 20 mg DAILY PO ; Start 02/01/17 at 09:00 Clopidogrel Bisulfate (plaVIX) 75 mg DAILY PO Last administered on 02/02/17 08 :41; Admin Dose 75 MG; Start 02/01/17 at 09:00 Diclofenac Sodium (Voltaren) 75 mg BID PO Last administered on 02/02/17 10:50 ; Admin Dose 75 MG; Start 01/31/17 at 21:00 Ferrous Sulfate (Ferrous Sulfate (Ec)) 325 mg DAILY PO Last administered on 10:51; Admin Dose 325 MG; Start 02/01/17 at 09:00 Folic Acid (Folic Acid) 1 mg DAILY PO Last administered on 02/02/17 10:50; Admin Dose 1 MG; Start 02/01/17 at 09:00 Meclizine HCl (Antivert) 25 mg BID PRN PO DIZZINESS; Start 01/31/17 at 17:30 Nadolol (Corgard) 20 mg BID PO Last administered on 02/02/17 08:44; Admin Dose 20 MG; Start 01/31/17 at 21:00 Tamsulosin HCl (Flomax) 0.4 mg HS PO Last administered on 02/01/17 21:10; Admin Dose 0.4 MG; Start 01/31/17 at 21:00 Ondansetron HCl (Zofran Inj) 4 mg Q6H PRN IV NAUSEA AND/OR VOMITING; Start 06/07 at 17:30 Acetaminophen (Tylenol Tab) 650 mg Q6H PRN PO PAIN LEVEL 1-3 OR FEVER; Start at 17:30 Docusate Sodium (Colace) 100 mg Q12H PRN PO CONSTIPATION; Start 01/31/17 at 17: 30 Magnesium Hydroxide (Milk Of Mag) 30 ml DAILY PRN PO CONSTIPATION; Start at 17:30 Bisacodyl (Dulcolax) 5 mg DAILY PRN PO CONSTIPATION; Start 01/31/17 at 17:30 Pantoprazole (Protonix Tab) 40 mg DAILY@06 PO Last administered on 02/02/17 05 :54; Admin Dose 40 MG; Start 02/01/17 at 06:00 Diagnostic Test (Pha) (Accu-Chek) 1 ea 02 XX ; Start 02/01/17 at 02:00 Miscellaneous Information 1 ea NOTE XX ; Start 01/31/17 at 18:30 Glucose (Glutose) 15 gm Q15M PRN PO DECREASED GLUCOSE; Start 01/31/17 at 18:30 Glucose (Glutose) 22.5 gm Q15M PRN PO DECREASED GLUCOSE; Start 01/31/17 at 18: 30 Dextrose (D50w Syringe) 25 ml Q15M PRN IV DECREASED GLUCOSE; Start 01/31/17 at 18:30 Dextrose (D50w Syringe) 50 ml Q15M PRN IV DECREASED GLUCOSE; Start 01/31/17 at 18:30 Glucagon (Glucagen) 1 mg Q15M PRN IM DECREASED GLUCOSE; Start 01/31/17 at 18:30 Glucose (Glutose) 15 gm Q15M PRN BUCCAL DECREASED GLUCOSE; Start 01/31/17 at 18 :30 Assessment/Plan Chief Complaint/Hosp Course Assessment 1. Right hilar lung mass concerning for likely bronchogenic carcinoma. Palpable supraclavicular mass 2. History of peripheral arterial disease. Currently on anticoagulation. 3. Likely underlying COPD. Plan 1. Hold Eliquis 2. General surgery evaluation for excision biopsy of supraclavicular mass, biopsy tentatively scheduled for either later today or tomorrow. 3. If unable to obtain diagnosis from supraclavicular lymph node biopsy the patient will likely need mediastinoscopy given the location of central lung mass is not safe to approach from CT-guided needle approach is not amenable to bronchoscopy. Case was discussed at length with patient and his daughter at bedside. Problems: JACQUELINE ADDISON MD, [facility] Feb 02, 2017 14:02
--- NOTE | 2017-02-02 19:43 | PN ---
Date/Time of Note Date/Time of Note DATE: 02/02/17 TIME: 19:42 Assessment/Plan VTE Prophylaxis VTE Prophylaxis Intervention: other Lines/Catheters [facility] Saline Lock Urinary Cath still in place: No Assessment/Plan Chief Complaint/Hosp Course IMPRESSION: 1. The patient has a lung mass. 2. chest pain.SD R.O 3. Diabetes mellitus. 4. hx smoking. 5. Anemia. PLAN PER PULMONARY and surgery biopsy soon Problems: Subjective 24 Hr Interval Summary Cardiovascular: no complaints Gastrointestinal: no complaints Exam/Review of Systems Vital Signs Vitals Vital Signs Date Time Temp Pulse Resp B/P Pulse Ox O2 Delivery O2 Flow Rate FiO2 02/02/17 13:54 98.1 61 16 104/56 99 02/02/17 02:00 Room Air Intake and Output 02/01/17 02/01/17 02/02/17 15:00 23:00 07:00 Intake Total 960 ml 600 ml Balance 960 ml 600 ml Exam Respiratory: clear to auscultation Cardiovascular: regular rate and rhythm Gastrointestinal: soft Musculoskeletal: nl extremities to inspection Results Result Diagram: 01/31/17 1320 01/31/17 1320 Results 24 hrs Laboratory Tests Test 02/01/17 21:07 02/02/17 08:09 02/02/17 12:07 02/02/17 17:06 Bedside Glucose 156 125 110 100 Medications Medications Current Medications Apixaban (Eliquis) 5 mg BID PO ; Start 01/31/17 at 21:00; Status Future hold Aspirin (Halfprin) 81 mg DAILY PO Last administered on 02/02/17 08:41; Admin Dose 81 MG; Start 02/01/17 at 09:00 Clopidogrel Bisulfate (plaVIX) 75 mg DAILY PO Last administered on 02/02/17 08 :41; Admin Dose 75 MG; Start 02/01/17 at 09:00 Diclofenac Sodium (Voltaren) 75 mg BID PO Last administered on 02/02/17 10:50 ; Admin Dose 75 MG; Start 01/31/17 at 21:00 Ferrous Sulfate (Ferrous Sulfate (Ec)) 325 mg DAILY PO Last administered on 10:51; Admin Dose 325 MG; Start 02/01/17 at 09:00 Folic Acid (Folic Acid) 1 mg DAILY PO Last administered on 02/02/17 10:50; Admin Dose 1 MG; Start 02/01/17 at 09:00 Meclizine HCl (Antivert) 25 mg BID PRN PO DIZZINESS; Start 01/31/17 at 17:30 Nadolol (Corgard) 20 mg BID PO Last administered on 02/02/17 08:44; Admin Dose 20 MG; Start 01/31/17 at 21:00 Tamsulosin HCl (Flomax) 0.4 mg HS PO Last administered on 02/01/17 21:10; Admin Dose 0.4 MG; Start 01/31/17 at 21:00 Ondansetron HCl (Zofran Inj) 4 mg Q6H PRN IV NAUSEA AND/OR VOMITING; Start 06/07 at 17:30 Acetaminophen (Tylenol Tab) 650 mg Q6H PRN PO PAIN LEVEL 1-3 OR FEVER; Start at 17:30 Docusate Sodium (Colace) 100 mg Q12H PRN PO CONSTIPATION; Start 01/31/17 at 17: 30 Magnesium Hydroxide (Milk Of Mag) 30 ml DAILY PRN PO CONSTIPATION; Start at 17:30 Bisacodyl (Dulcolax) 5 mg DAILY PRN PO CONSTIPATION; Start 01/31/17 at 17:30 Pantoprazole (Protonix Tab) 40 mg DAILY@06 PO Last administered on 02/02/17 05 :54; Admin Dose 40 MG; Start 02/01/17 at 06:00 Diagnostic Test (Pha) (Accu-Chek) 1 ea 02 XX ; Start 02/01/17 at 02:00 Miscellaneous Information 1 ea NOTE XX ; Start 01/31/17 at 18:30 Glucose (Glutose) 15 gm Q15M PRN PO DECREASED GLUCOSE; Start 01/31/17 at 18:30 Glucose (Glutose) 22.5 gm Q15M PRN PO DECREASED GLUCOSE; Start 01/31/17 at 18: 30 Dextrose (D50w Syringe) 25 ml Q15M PRN IV DECREASED GLUCOSE; Start 01/31/17 at 18:30 Dextrose (D50w Syringe) 50 ml Q15M PRN IV DECREASED GLUCOSE; Start 01/31/17 at 18:30 Glucagon (Glucagen) 1 mg Q15M PRN IM DECREASED GLUCOSE; Start 8/12/17 at 18:30 Glucose (Glutose) 15 gm Q15M PRN BUCCAL DECREASED GLUCOSE; Start 01/31/17 at 18 :30 NEDA VALVERDE MD Feb 02, 2017 19:43
[2017-02-02 20:00] VITALS: BP 125/58; RESP 16
[2017-02-02] MEDS: TAMSULOSIN (SR) 0.4 MG CAP PO SCH (21:07)
[2017-02-03] VITALS (13 sets, daily range): BP systolic 97–140; BP diastolic 44–63; PULSE 58–64; RESP 16–20
[2017-02-03] MEDS: ACCU-CHEK XX SCH (02:00)
[2017-02-03] MEDS: PANTOPRAZOLE (EC) 40 MG TAB PO SCH (05:33)
[2017-02-03] MEDS ORDERED: BUPIVACAINE 0.5%/EPI (SDV) 10 ML INJ ONE (06:51)
[2017-02-03] MEDS ORDERED: LIDOCAINE 1% (STERILE-PAK) 30 ML INJ ONE (08:40)
[2017-02-03] MEDS ORDERED: MIDAZOLAM 1 MG/ML 2 ML INJ ONE (08:46)
[2017-02-03] MEDS ORDERED: FENTAnyl 50 MCG/ML VIAL ONE (08:46)
[2017-02-03] MEDS ORDERED: PROPOFOL 0 ML ONE (08:46)
[2017-02-03] MEDS ORDERED: CEFAZOLIN 1 GM INJ ONE (08:57)
--- NOTE | 2017-02-03 09:45 | OPR ---
Date/Time of Note Date/Time of Note DATE: 02/03/17 TIME: 09:41 Operative Report Procedure Date: Feb 03, 2017 Preoperative Diagnosis Hilar mass Supraclavicular lymphadenopathy Postoperative Diagnosis Same Operation Performed 1. Excisional biopsy of right supraclavicular lymph node 2. Local anesthetic [place], [id number] Surgeon: FADIA WATSON MD Refueling Rampman: ANGELICA SOTOMAYOR NP Anesthesia Type: MAC (And local) Anesthesiologist: MADELIN CAMPBELL MD Estimated Blood Loss: minimal Specimen: none Specimens Right supraclavicular lymph node Grafts/Implants: none Tubes/Drains None Complications: no Pt Condition Post Procedure: stable Disposition: PACU Indications Per consult notes. Risks include but are not limited to bleeding, hematoma, infection, abscess, seroma, leak, damage to neurovascular bundle/lungs/heart, chronic pain, need for re-operations or further surgeries, MA, stroke, PE, DVT, pneumonia, organ failures, or even . Procedure Description Patient was brought in and placed supine on the operating table. SCDs were placed. After induction of anesthesia the right neck was prepped and draped with Betadine in sterile fashion. No oxygen mask was placed. Timeout was performed. Local anesthetic was injected at surgical site. Incision was made on the skin along the skin lines into the subcutaneous tissue and muscle. The muscles were gently dissected and lymph node was identified. Lymph node was excised circumferentially using clips with complete hemostasis. Lymph node was sent to pathology. Wound was irrigated with warm water to clear suctioning fluid. Wound was closed in 2 layers with 2-0 Vicryl [id number] subcutaneous closure followed by 4-0 Monocryl subcuticular closure of the skin. Dermabond was applied. Patient was recovered and taken back to PACU in stable condition. All counts were correct at the end the operation 2. FADIA WATSON MD Feb 03, 2017 09:45
[2017-02-03] MEDS ORDERED: MEPERIDINE 25 MG INJ IV PRN (10:00)
[2017-02-03] MEDS ORDERED: MIDAZOLAM 1 MG/ML 2 ML INJ IV PRN (10:00)
[2017-02-03] MEDS ORDERED: FENTAnyl 50 MCG/ML VIAL IV PRN ×3 (10:00)
[2017-02-03] MEDS ORDERED: DIPHENHYDRAMINE 50 MG INJ IV PRN (10:00)
[2017-02-03] MEDS ORDERED: ONDANSETRON 4 MG INJ IV PRN (10:00)
[2017-02-03] MEDS ORDERED: LABETALOL HCL 20MG INJ IV PRN (10:00)
[2017-02-03] MEDS ORDERED: METOCLOPRAMIDE 10 MG INJ IV PRN (10:00)
[2017-02-03] MEDS ORDERED: OXYCODONE/ACETAMINOPHEN (5/325) TAB PO PRN ×2 (10:00)
[2017-02-03] MEDS ORDERED: hydrALAzine 20 MG INJ IV PRN (10:00)
[2017-02-03] MEDS ORDERED: EPHEDrine SULFATE 50 MG/5 ML SYG IV PRN (10:00)
[2017-02-03] MEDS: INSULIN ASPART [NOVOLOG] 3 ML PEN SC SCH ×4 (10:35→21:00)
[2017-02-03] MEDS: FERROUS SULFATE (EC) 325 MG TAB PO SCH (10:37)
[2017-02-03] MEDS: FOLIC ACID 1 MG TAB PO SCH (10:37)
[2017-02-03] MEDS: APIXABAN 5 MG TABLET PO SCH ×2 (10:37→21:00)
[2017-02-03] MEDS: ASPIRIN (EC) 81 MG TAB PO SCH (10:37)
[2017-02-03] MEDS: DICLOFENAC (EC) 75 MG TAB PO SCH ×2 (10:37→21:19)
[2017-02-03] MEDS: CLOPIDOGREL 75 MG TAB PO SCH (10:37)
[2017-02-03] MEDS: NADOLOL 40 MG TAB PO SCH ×2 (10:40→21:00)
--- NOTE | 2017-02-03 11:21 | CONS ---
Date/Time of Note Date/Time of Note DATE: 02/03/17 TIME: 11:18 Consult Date/Type/Reason Admit Date/Time Jan 31, 2017 at 16:34 Initial Consult Date 02/01/17 Type of Consultation: Pulmonary Subjective Status post excision biopsy of supraclavicular lymph node. Patient remains stable. Objective Vital Signs Date Time Temp Pulse Resp B/P Pulse Ox O2 Delivery O2 Flow Rate FiO2 02/03/17 10:41 64 140/63 02/03/17 10:19 97.8 16 98 02/03/17 10:00 Room Air Intake and Output 02/02/17 02/02/17 02/03/17 15:00 23:00 07:00 Intake Total 880 ml 480 ml Balance 880 ml 480 ml Exam GENERAL: Well-nourished well-developed gentleman comfortable at rest no acute distress VITAL SIGNS: per chart NECK: Supple. No JVD CARDIAC EXAM: S1, S2. No added sounds or murmurs. CHEST: clear bilaterally, No added sounds, rales or wheezes ABDOMEN: Soft, nontender. No guarding or rebound. EXTREMITIES: No cyanosis, clubbing or edema. NEUROLOGIC: Generalized weakness. No focal deficits. Results/Medications Result Diagram: 01/31/17 1320 01/31/17 1320 Results 24 hrs Laboratory Tests Test 02/02/17 12:07 02/02/17 17:06 02/02/17 21:06 02/03/17 06:51 Bedside Glucose 110 100 108 119 Test 02/03/17 10:35 Bedside Glucose 110 Medications Current Medications Apixaban (Eliquis) 5 mg BID PO Last administered on 02/03/17 10:37; Admin Dose 5 MG; Start 01/31/17 at 21:00; Status Future hold Aspirin (Halfprin) 81 mg DAILY PO Last administered on 02/03/17 10:37; Admin Dose 81 MG; Start 02/01/17 at 09:00 Clopidogrel Bisulfate (plaVIX) 75 mg DAILY PO Last administered on 02/03/17 10 :37; Admin Dose 75 MG; Start 02/01/17 at 09:00 Diclofenac Sodium (Voltaren) 75 mg BID PO Last administered on 02/03/17 10:37 ; Admin Dose 75 MG; Start 01/31/17 at 21:00 Ferrous Sulfate (Ferrous Sulfate (Ec)) 325 mg DAILY PO Last administered on 10:37; Admin Dose 325 MG; Start 02/01/17 at 09:00 Folic Acid (Folic Acid) 1 mg DAILY PO Last administered on 02/03/17 10:37; Admin Dose 1 MG; Start 02/01/17 at 09:00 Meclizine HCl (Antivert) 25 mg BID PRN PO DIZZINESS; Start 01/31/17 at 17:30 Nadolol (Corgard) 20 mg BID PO Last administered on 02/03/17 10:40; Admin Dose 20 MG; Start 01/31/17 at 21:00 Tamsulosin HCl (Flomax) 0.4 mg HS PO Last administered on 02/02/17 21:07; Admin Dose 0.4 MG; Start 01/31/17 at 21:00 Ondansetron HCl (Zofran Inj) 4 mg Q6H PRN IV NAUSEA AND/OR VOMITING; Start 06/07 at 17:30 Acetaminophen (Tylenol Tab) 650 mg Q6H PRN PO PAIN LEVEL 1-3 OR FEVER; Start at 17:30 Docusate Sodium (Colace) 100 mg Q12H PRN PO CONSTIPATION; Start 01/31/17 at 17: 30 Magnesium Hydroxide (Milk Of Mag) 30 ml DAILY PRN PO CONSTIPATION; Start at 17:30 Bisacodyl (Dulcolax) 5 mg DAILY PRN PO CONSTIPATION; Start 01/31/17 at 17:30 Pantoprazole (Protonix Tab) 40 mg DAILY@06 PO Last administered on 02/02/17 05 :54; Admin Dose 40 MG; Start 02/01/17 at 06:00 Diagnostic Test (Pha) (Accu-Chek) 1 ea 02 XX ; Start 02/01/17 at 02:00 Miscellaneous Information 1 ea NOTE XX ; Start 01/31/17 at 18:30 Glucose (Glutose) 15 gm Q15M PRN PO DECREASED GLUCOSE; Start 01/31/17 at 18:30 Glucose (Glutose) 22.5 gm Q15M PRN PO DECREASED GLUCOSE; Start 01/31/17 at 18: 30 Dextrose (D50w Syringe) 25 ml Q15M PRN IV DECREASED GLUCOSE; Start 01/31/17 at 18:30 Dextrose (D50w Syringe) 50 ml Q15M PRN IV DECREASED GLUCOSE; Start 01/31/17 at 18:30 Glucagon (Glucagen) 1 mg Q15M PRN IM DECREASED GLUCOSE; Start 01/31/17 at 18:30 Glucose (Glutose) 15 gm Q15M PRN BUCCAL DECREASED GLUCOSE; Start 01/31/17 at 18 :30 Acetaminophen/ Hydrocodone Bitart ([place] (5/325)) 1 tab Q6H PRN PO PAIN LEVEL 6 -10; Start 02/03/17 at 10:00 Assessment/Plan Chief Complaint/Hosp Course Assessment 1. Right hilar lung mass concerning for likely bronchogenic carcinoma. Status post lymph node excision biopsy 2. History of peripheral arterial disease. Currently on anticoagulation. 3. Likely underlying COPD. Plan 1. Hold Eliquis 2. Pending pathology report. 3. If lymph node biopsy patient likely need mediastinoscopy given the location of central lung mass is not safe to approach from CT-guided needle approach is not amenable to bronchoscopy. Case was discussed at length with patient and his daughter at bedside. Problems: JACQUELINE ADDISON MD, [facility] Feb 03, 2017 11:21
--- NOTE | 2017-02-03 13:44 | PN ---
Date/Time of Note Date/Time of Note DATE: 02/03/17 TIME: 13:40 Assessment/Plan Lines/Catheters IV Catheter Type (from [facility]): Saline Lock [facility] in Place (from [facility]): No Assessment/Plan Chief Complaint/Hosp Course 1. Right upper lung mass with mediastinal and right supraclavicular lymphadenopathy: palpable supraclavicular lymph node; concern for malignancy; lymph node biopsy today -pulm consult -Onc consult 2. Chest pain: trops neg; likely 2/2 to above; no cp today -as above 3. Microcytic hypochromic anemia: no beto bleed noted -work up per medicine -monitor and transfuse prn 4. Diabetes -blood sugar optimization Patient seen and examined in collaboration with Dr. Hitesh Willingham. Thank you. Problems: Subjective 24 Hr Interval Summary Feels well. anxious. Lymph node biopsy today. No fevers, chills, sob, cough, n/v /d/dysuria. Exam/Review of Systems Vital Signs Vitals Vital Signs Date Time Temp Pulse Resp B/P Pulse Ox O2 Delivery O2 Flow Rate FiO2 02/03/17 10:41 64 140/63 02/03/17 10:19 97.8 16 98 02/03/17 10:00 Room Air Intake and Output 02/02/17 02/02/17 02/03/17 15:00 23:00 07:00 Intake Total 880 ml 480 ml Balance 880 ml 480 ml Exam Free Text/Dictation Constitutional: alert, oriented Psych: anxiety Head: atraumatic, normocephalic Eyes: nl conjunctiva, nl lids, nl sclera ENMT: mucosa pink and moist Neck: supple Respiratory: normal air movement Cardiovascular: nl pulses, regular rate and rhythm, No edema Gastrointestinal: non-tender, soft Genitourinary - Male: nl penis, nl scrotum Musculoskeletal: nl extremities to inspection Extremities: normal pulses Neurological: nl mental status, nl speech, nl strength Skin: No ecchymosis Lymph: other (palpable supraclavicular lymph node) Results Result Diagram: 01/31/17 1320 01/31/17 1320 ANGELICA SOTOMAYOR NP Feb 03, 2017 13:44
[2017-02-03] MEDS: TAMSULOSIN (SR) 0.4 MG CAP PO SCH (21:19)
--- NOTE | 2017-02-03 22:40 | CONS ---
Date/Time of Note Date/Time of Note DATE: 02/03/17 TIME: 22:09 Assessment/Plan Assessment/Plan Chief Complaint/Hosp Course 71 yo male with # Right upper lung mass with mediastinal and right supraclavicular lymphadenopathy. Additional smaller bilateral pulmonary nodules are seen -s/p supraclavicular LN bx -if biopsy does not reveal diagnosis pt will need mediastinoscopy -will order CEA given concern for underling primary lung malignancy -if this is confirmed as lung primary will need input from thoracic surgery as well as radiation oncology. # History of peripheral arterial disease. -Currently on Eliquis which was held for biopsy -can resume after biopsy #COPD. -pt currently with stable breathing -continue breathing treatments as necessary Problems: (1) Lung malignancy Status: Acute Qualifiers: Qualified Code: C34.11 - Malignant neoplasm of upper lobe of right lung (2) Shortness of breath Status: Acute Consultation Date/Type/Reason Admit Date/Time Jan 31, 2017 at 16:34 Date of Consultation: Feb 03, 2017 Type of Consultation: Oncology Reason for Consultation lung mass Referring Provider: NEDA VALVERDE MD Hx of Present Illness 71-year-old gentleman with an extensive smoking history accompanied by peripheral arterial disease who 4 mo ago underwent right popliteal artery angioplasty and stent placement. Per patient's daughter, patient has steadily declined with weight loss, and increasing cough with chest pain. CXR done at [facility] demonstrated a widened mediastinum concerning for mass. CT of the chest was performed demonstrated right upper lobe mass adjacent to the mediastinum with supraclavicular lymphadenopathy, concerning for malignancy. Patient denies any hemoptysis hematemesis no recent travel history no sick contacts no prior history of TB. Patient underwent R supraclavicular lymph node bx. Constitutional: No chills, No diaphoresis Eyes: No visual change ENT: No dysphagia, No sore throat Respiratory: no complaints, No cough Cardiovascular: no complaints Gastrointestinal: no complaints Genitourinary: No hematuria Musculoskeletal: back pain Neurologic: No headache, No syncope Lymphatic: No no complaints Psychological: anxiety Social History Smoking Status: Former smoker Drug Use: none Exam/Review of Systems Vital Signs Vitals Vital Signs Date Time Temp Pulse Resp B/P Pulse Ox O2 Delivery O2 Flow Rate FiO2 02/03/17 20:55 98.1 59 20 113/53 98 02/03/17 10:00 Room Air Intake and Output 02/02/17 02/02/17 02/03/17 15:00 23:00 07:00 Intake Total 880 ml 480 ml Balance 880 ml 480 ml Results Result Diagram: 01/31/17 1320 01/31/17 1320 Results 24 hrs Laboratory Tests Test 02/03/17 06:51 02/03/17 10:35 02/03/17 12:07 02/03/17 13:04 Bedside Glucose 119 110 205 208 Test 02/03/17 17:26 02/03/17 21:18 Bedside Glucose 107 130 Medications Medications Current Medications Apixaban (Eliquis) 5 mg BID PO Last administered on 02/03/17 10:37; Admin Dose 5 MG; Start 01/31/17 at 21:00; Status Future hold Aspirin (Halfprin) 81 mg DAILY PO Last administered on 02/03/17 10:37; Admin Dose 81 MG; Start 02/01/17 at 09:00 Clopidogrel Bisulfate (plaVIX) 75 mg DAILY PO Last administered on 02/03/17 10 :37; Admin Dose 75 MG; Start 02/01/17 at 09:00 Diclofenac Sodium (Voltaren) 75 mg BID PO Last administered on 02/03/17 21:19 ; Admin Dose 75 MG; Start 01/31/17 at 21:00 Ferrous Sulfate (Ferrous Sulfate (Ec)) 325 mg DAILY PO Last administered on 10:37; Admin Dose 325 MG; Start 02/01/17 at 09:00 Folic Acid (Folic Acid) 1 mg DAILY PO Last administered on 02/03/17 10:37; Admin Dose 1 MG; Start 02/01/17 at 09:00 Meclizine HCl (Antivert) 25 mg BID PRN PO DIZZINESS; Start 01/31/17 at 17:30 Nadolol (Corgard) 20 mg BID PO Last administered on 02/03/17 10:40; Admin Dose 20 MG; Start 01/31/17 at 21:00 Tamsulosin HCl (Flomax) 0.4 mg HS PO Last administered on 02/03/17 21:19; Admin Dose 0.4 MG; Start 01/31/17 at 21:00 Ondansetron HCl (Zofran Inj) 4 mg Q6H PRN IV NAUSEA AND/OR VOMITING; Start 06/07 at 17:30 Acetaminophen (Tylenol Tab) 650 mg Q6H PRN PO PAIN LEVEL 1-3 OR FEVER; Start at 17:30 Docusate Sodium (Colace) 100 mg Q12H PRN PO CONSTIPATION; Start 01/31/17 at 17: 30 Magnesium Hydroxide (Milk Of Mag) 30 ml DAILY PRN PO CONSTIPATION; Start at 17:30 Bisacodyl (Dulcolax) 5 mg DAILY PRN PO CONSTIPATION; Start 01/31/17 at 17:30 Pantoprazole (Protonix Tab) 40 mg DAILY@06 PO Last administered on 02/02/17t 05 :54; Admin Dose 40 MG; Start 02/01/17 at 06:00 Diagnostic Test (Pha) (Accu-Chek) 1 ea 02 XX ; Start 02/01/17 at 02:00 Miscellaneous Information 1 ea NOTE XX ; Start 01/31/17 at 18:30 Glucose (Glutose) 15 gm Q15M PRN PO DECREASED GLUCOSE; Start 01/31/17 at 18:30 Glucose (Glutose) 22.5 gm Q15M PRN PO DECREASED GLUCOSE; Start 01/31/17 at 18: 30 Dextrose (D50w Syringe) 25 ml Q15M PRN IV DECREASED GLUCOSE; Start 01/31/17 at 18:30 Dextrose (D50w Syringe) 50 ml Q15M PRN IV DECREASED GLUCOSE; Start 01/31/17 at 18:30 Glucagon (Glucagen) 1 mg Q15M PRN IM DECREASED GLUCOSE; Start 01/31/17 at 18:30 Glucose (Glutose) 15 gm Q15M PRN BUCCAL DECREASED GLUCOSE; Start 01/31/17 at 18 :30 Acetaminophen/ Hydrocodone Bitart ([place] (5/325)) 1 tab Q6H PRN PO PAIN LEVEL 6 -10; Start 02/03/17 at 10:00 KRISTINE PONCE M.D. Feb 03, 2017 22:24
--- NOTE | 2017-02-03 23:10 | PN ---
Date/Time of Note Date/Time of Note DATE: 02/03/17 TIME: 23:08 Assessment/Plan VTE Prophylaxis VTE Prophylaxis Intervention: other Lines/Catheters IV [facility] Type (from [facility]): Saline Lock Urinary Cath still in place: No Assessment/Plan Chief Complaint/Hosp Course IMPRESSION: 1. The patient has a lung mass. 2. chest pain.DE R.O 3. Diabetes mellitus. 4. hx smoking. 5. Anemia. 6 s/p lymph node biopsy PLAN PER PULMONARY and surgery s/p biopsy dr retana to see Problems: Subjective 24 Hr Interval Summary Subjective hx not possible: other (s/p lymph node biopsy) Gastrointestinal: no complaints Genitourinary: no complaints Musculoskeletal: no complaints Exam/Review of Systems Vital Signs Vitals Vital Signs Date Time Temp Pulse Resp B/P Pulse Ox O2 Delivery O2 Flow Rate FiO2 02/03/17 20:55 98.1 59 20 113/53 98 02/03/17 10:00 Room Air Intake and Output 02/02/17 02/02/17 02/03/17 15:00 23:00 07:00 Intake Total 880 ml 480 ml Balance 880 ml 480 ml Exam Respiratory: clear to auscultation Cardiovascular: regular rate and rhythm Gastrointestinal: soft Musculoskeletal: nl extremities to inspection Extremities: normal pulses Results Result Diagram: 01/31/17 1320 01/31/17 1320 Results 24 hrs Laboratory Tests Test 02/03/17 06:51 02/03/17 10:35 02/03/17 12:07 02/03/17 13:04 Bedside Glucose 119 110 205 208 Test 02/03/17 17:26 02/03/17 21:18 Bedside Glucose 107 130 Medications Medications Current Medications Apixaban (Eliquis) 5 mg BID PO Last administered on 02/03/17 10:37; Admin Dose 5 MG; Start 01/31/17 at 21:00; Status Future hold Aspirin (Halfprin) 81 mg DAILY PO Last administered on 02/03/17 10:37; Admin Dose 81 MG; Start 02/01/17 at 09:00 Clopidogrel Bisulfate (plaVIX) 75 mg DAILY PO Last administered on 02/03/17 10 :37; Admin Dose 75 MG; Start 02/01/17 at 09:00 Diclofenac Sodium (Voltaren) 75 mg BID PO Last administered on 02/03/17 21:19 ; Admin Dose 75 MG; Start 01/31/17 at 21:00 Ferrous Sulfate (Ferrous Sulfate (Ec)) 325 mg DAILY PO Last administered on 10:37; Admin Dose 325 MG; Start 02/01/17 at 09:00 Folic Acid (Folic Acid) 1 mg DAILY PO Last administered on 02/03/17 10:37; Admin Dose 1 MG; Start 02/01/17 at 09:00 Meclizine HCl (Antivert) 25 mg BID PRN PO DIZZINESS; Start 01/31/17 at 17:30 Nadolol (Corgard) 20 mg BID PO Last administered on 02/03/17 10:40; Admin Dose 20 MG; Start 01/31/17 at 21:00 Tamsulosin HCl (Flomax) 0.4 mg HS PO Last administered on 02/03/17 21:19; Admin Dose 0.4 MG; Start 01/31/17 at 21:00 Ondansetron HCl (Zofran Inj) 4 mg Q6H PRN IV NAUSEA AND/OR VOMITING; Start 06/07 at 17:30 Acetaminophen (Tylenol Tab) 650 mg Q6H PRN PO PAIN LEVEL 1-3 OR FEVER; Start at 17:30 Docusate Sodium (Colace) 100 mg Q12H PRN PO CONSTIPATION; Start 01/31/17 at 17: 30 Magnesium Hydroxide (Milk Of Mag) 30 ml DAILY PRN PO CONSTIPATION; Start at 17:30 Bisacodyl (Dulcolax) 5 mg DAILY PRN PO CONSTIPATION; Start 01/31/17 at 17:30 Pantoprazole (Protonix Tab) 40 mg DAILY@06 PO Last administered on 02/02/17 05 :54; Admin Dose 40 MG; Start 02/01/17 at 06:00 Diagnostic Test (Pha) (Accu-Chek) 1 ea 02 XX ; Start 02/01/17 at 02:00 Miscellaneous Information 1 ea NOTE XX ; Start 01/31/17 at 18:30 Glucose (Glutose) 15 gm Q15M PRN PO DECREASED GLUCOSE; Start 01/31/17 at 18:30 Glucose (Glutose) 22.5 gm Q15M PRN PO DECREASED GLUCOSE; Start 01/31/17 at 18: 30 Dextrose (D50w Syringe) 25 ml Q15M PRN IV DECREASED GLUCOSE; Start 01/31/17 at 18:30 Dextrose (D50w Syringe) 50 ml Q15M PRN IV DECREASED GLUCOSE; Start 01/31/17 at 18:30 Glucagon (Glucagen) 1 mg Q15M PRN IM DECREASED GLUCOSE; Start 01/31/17 at 18:30 Glucose (Glutose) 15 gm Q15M PRN BUCCAL DECREASED GLUCOSE; Start 01/31/17 at 18 :30 Acetaminophen/ Hydrocodone Bitart ([place] (5/325)) 1 tab Q6H PRN PO PAIN LEVEL 6 -10; Start 02/03/17 at 10:00 NEDA VALVERDE MD Feb 03, 2017 23:09
[2017-02-04] MEDS: ACCU-CHEK XX SCH (02:00)
[2017-02-04 02:31] VITALS: BP 120/59; RESP 20
[2017-02-04] MEDS: HYDROCODONE/APAP (5/325) TAB PO PRN ×2 (02:44→21:19)
[2017-02-04] MEDS: PANTOPRAZOLE (EC) 40 MG TAB PO SCH (06:16)
[2017-02-04 06:30] LABS: BASOPHIL # 0.1 10^3/ul (0.0-0.1); BASOPHILS % 0.8 % (0.0-2.0); EOSINOPHILS # 0.3 10^3/ul (0.0-0.5); EOSINOPHILS % 4.6 % (0.0-7.0); HEMOGLOBIN 10.1 g/dl (14.0-18.0); LYMPHOCYTES # 1.5 10^3/ul (0.8-2.9); LYMPHOCYTES % 22.2 % (15.0-51.0); MEAN CORPUSCULAR HGB CONC 31.6 g/dl (32.0-37.0); MEAN CORPUSCULAR VOLUME 79.2 fl (82.0-101.0); MONOCYTE # 0.6 10^3/ul (0.3-0.9); MONOCYTES % 8.7 % (0.0-11.0); NEUTROPHILS % 63.5 % (39.0-77.0); PLATELET COUNT 218 10^3/UL (140-415); RED BLOOD COUNT 4.04 10^6/ul (4.70-6.10); RED CELL DISTRIBUTION WIDTH 14.8 % (11.5-14.5); WHITE BLOOD COUNT 6.5 10^3/ul (4.8-10.8)
[2017-02-04 06:47] LABS: CALCIUM 8.9 mg/dl (8.4-10.2); CREATININE 1.44 mg/dl (0.61-1.24); POTASSIUM 5.1 mmol/L (3.5-5.1)
[2017-02-04 07:23] VITALS: BP 121/58; RESP 18
[2017-02-04] MEDS: INSULIN ASPART [NOVOLOG] 3 ML PEN SC SCH ×4 (08:06→21:00)
[2017-02-04] MEDS: FERROUS SULFATE (EC) 325 MG TAB PO SCH (08:07)
[2017-02-04] MEDS: NADOLOL 40 MG TAB PO SCH (08:07)
[2017-02-04] MEDS: DICLOFENAC (EC) 75 MG TAB PO SCH ×2 (08:07→21:12)
[2017-02-04] MEDS: CLOPIDOGREL 75 MG TAB PO SCH (08:07)
[2017-02-04] MEDS: ASPIRIN (EC) 81 MG TAB PO SCH (08:07)
[2017-02-04] MEDS: FOLIC ACID 1 MG TAB PO SCH (08:07)
[2017-02-04] MEDS: APIXABAN 5 MG TABLET PO SCH (08:08)
--- NOTE | 2017-02-04 08:48 | PN ---
Date/Time of Note Date/Time of Note DATE: 02/04/17 TIME: 08:45 Assessment/Plan Lines/Catheters IV Catheter Type (from Nrs): Saline Lock [facility] in Place (from Nrs): No Assessment/Plan Chief Complaint/Hosp Course 1. Right upper lung mass with mediastinal and right supraclavicular lymphadenopathy: palpable supraclavicular lymph node; concern for malignancy;s/ p lymph node biopsy -pain management to site -await path -per pulm and Onc 2. Chest pain: trops neg; likely 2/2 to above; no cp today -as above 3. Microcytic hypochromic anemia: no beto bleed noted -work up per medicine -monitor and transfuse prn 4. Diabetes -blood sugar optimization Patient seen and examined in collaboration with Dr. Hitesh Willingham. Thank you. Problems: Subjective 24 Hr Interval Summary Feeling well. incision dry. Min discomfort. No fevers, chills, n/v/d/dysuria. Exam/Review of Systems Vital Signs Vitals Vital Signs Date Time Temp Pulse Resp B/P Pulse Ox O2 Delivery O2 Flow Rate FiO2 02/04/17 07:23 98.0 56 18 121/58 98 02/03/17 10:00 Room Air Intake and Output 02/03/17 02/03/17 02/04/17 15:00 23:00 07:00 Intake Total 250 ml Output Total 5 ml Balance 245 ml Exam Free Text/Dictation Constitutional: alert, oriented Psych: anxiety Head: atraumatic, normocephalic Eyes: nl conjunctiva, nl lids, nl sclera ENMT: mucosa pink and moist Neck: supple right clavicular incision site dry with min erythema Respiratory: normal air movement Cardiovascular: nl pulses, regular rate and rhythm, No edema Gastrointestinal: non-tender, soft Genitourinary - Male: nl penis, nl scrotum Musculoskeletal: nl extremities to inspection Extremities: normal pulses Neurological: nl mental status, nl speech, nl strength Skin: No ecchymosis Results Result Diagram: 02/04/17 0535 02/04/17 0536 ANGELICA SOTOMAYOR NP Feb 04, 2017 08:48
--- NOTE | 2017-02-04 11:21 | CONS ---
Date/Time of Note Date/Time of Note DATE: 02/04/17 TIME: 11:20 Consult Date/Type/Reason Admit Date/Time Jan 31, 2017 at 16:34 Initial Consult Date 02/01/17 Type of Consultation: Pulmonary Ordering Provider: NEDA VALVERDE MD Subjective Patient stable following lymph node biopsy. Objective Vital Signs Date Time Temp Pulse Resp B/P Pulse Ox O2 Delivery O2 Flow Rate FiO2 02/04/17 07:23 98.0 56 18 121/58 98 02/03/17 10:00 Room Air Intake and Output 02/03/17 02/03/17 02/04/17 14:59 22:59 06:59 Intake Total 250 ml Output Total 5 ml Balance 245 ml Exam PHYSICAL EXAMINATION GENERAL: Well-nourished well-developed gentleman comfortable at rest. VITAL SIGNS: see below. HEENT: Pupils equal, round, and reactive to light CARDIAC: S1, S2, systolic ejection murmur. CHEST: Clear to air entry bilaterally ABDOMEN: Mildly distended. Diminished bowel sounds. EXTREMITIES: No cyanosis, clubbing edema NEUROLOGIC: No focal deficits Results/Medications Result Diagram: 02/04/17 0535 02/04/17 0536 Results 24 hrs Laboratory Tests Test 02/03/17 12:07 02/03/17 13:04 02/03/17 17:26 02/03/17 21:18 Bedside Glucose 205 208 107 130 Test 02/03/17 23:17 02/04/17 05:35 02/04/17 05:36 02/04/17 08:06 Lactate Dehydrogenase 556 Carcinoembryonic Antigen < 0.3 White Blood Count 6.5 # Red Blood Count 4.04 L Hemoglobin 10.1 L Hematocrit 32.0 L Mean Corpuscular Volume 79.2 L Mean Corpuscular Hemoglobin 25.0 L Mean Corpuscular Hemoglobin Concent 31.6 L Red Cell Distribution Width 14.8 H Platelet Count 218 Mean Platelet Volume 10.0 Neutrophils % 63.5 Lymphocytes % 22.2 Monocytes % 8.7 Eosinophils % 4.6 Basophils % 0.8 Nucleated Red Blood Cells % 0.0 Neutrophils # (Manual) 4.2 Lymphocytes # 1.5 Monocytes # 0.6 Eosinophils # 0.3 Basophils # 0.1 Nucleated Red Blood Cells # 0.0 Sodium Level 135 Potassium Level 5.1 Chloride Level 102 Carbon Dioxide Level 25 Anion Gap 13 Blood Urea Nitrogen 34 H Creatinine 1.44 H Glucose Level 98 Calcium Level 8.9 Bedside Glucose 119 Medications Current Medications Apixaban (Eliquis) 5 mg BID PO Last administered on 02/03/17 10:37; Admin Dose 5 MG; Start 01/31/17 at 21:00; Status Future hold Aspirin (Halfprin) 81 mg DAILY PO Last administered on 02/04/17 08:07; Admin Dose 81 MG; Start 02/01/17 at 09:00 Clopidogrel Bisulfate (plaVIX) 75 mg DAILY PO Last administered on 02/04/17 08 :07; Admin Dose 75 MG; Start 02/01/17 at 09:00 Diclofenac Sodium (Voltaren) 75 mg BID PO Last administered on 02/04/17 08:07 ; Admin Dose 75 MG; Start 01/31/17 at 21:00 Ferrous Sulfate (Ferrous Sulfate (Ec)) 325 mg DAILY PO Last administered on 08:07; Admin Dose 325 MG; Start 02/01/17 at 09:00 Folic Acid (Folic Acid) 1 mg DAILY PO Last administered on 02/04/17 08:07; Admin Dose 1 MG; Start 02/01/17 at 09:00 Meclizine HCl (Antivert) 25 mg BID PRN PO DIZZINESS; Start 01/31/17 at 17:30 Nadolol (Corgard) 20 mg BID PO Last administered on 02/04/17 08:07; Admin Dose 20 MG; Start 01/31/17 at 21:00 Tamsulosin HCl (Flomax) 0.4 mg HS PO Last administered on 02/03/17 21:19; Admin Dose 0.4 MG; Start 01/31/17 at 21:00 Ondansetron HCl (Zofran Inj) 4 mg Q6H PRN IV NAUSEA AND/OR VOMITING; Start 06/07 at 17:30 Acetaminophen (Tylenol Tab) 650 mg Q6H PRN PO PAIN LEVEL 1-3 OR FEVER; Start at 17:30 Docusate Sodium (Colace) 100 mg Q12H PRN PO CONSTIPATION; Start 01/31/17 at 17: 30 Magnesium Hydroxide (Milk Of Mag) 30 ml DAILY PRN PO CONSTIPATION; Start at 17:30 Bisacodyl (Dulcolax) 5 mg DAILY PRN PO CONSTIPATION; Start 01/31/17 at 17:30 Pantoprazole (Protonix Tab) 40 mg DAILY@06 PO Last administered on 02/04/17 06 :16; Admin Dose 40 MG; Start 02/01/17 at 06:00 Diagnostic Test (Pha) (Accu-Chek) 1 ea 02 XX ; Start 02/01/17 at 02:00 Miscellaneous Information 1 ea NOTE XX ; Start 01/31/17 at 18:30 Glucose (Glutose) 15 gm Q15M PRN PO DECREASED GLUCOSE; Start 01/31/17 at 18:30 Glucose (Glutose) 22.5 gm Q15M PRN PO DECREASED GLUCOSE; Start 01/31/17 at 18: 30 Dextrose (D50w Syringe) 25 ml Q15M PRN IV DECREASED GLUCOSE; Start 01/31/17 at 18:30 Dextrose (D50w Syringe) 50 ml Q15M PRN IV DECREASED GLUCOSE; Start 01/31/17 at 18:30 Glucagon (Glucagen) 1 mg Q15M PRN IM DECREASED GLUCOSE; Start 01/31/17 at 18:30 Glucose (Glutose) 15 gm Q15M PRN BUCCAL DECREASED GLUCOSE; Start 01/31/17 at 18 :30 Acetaminophen/ Hydrocodone Bitart ([place] (5/325)) 1 tab Q6H PRN PO PAIN LEVEL 6 -10 Last administered on 02/04/17 02:44; Admin Dose 1 TAB; Start 02/03/17 at 10 :00 Assessment/Plan Chief Complaint/Hosp Course Assessment 1. Right hilar lung mass concerning for likely bronchogenic carcinoma. Status post lymph node excision biopsy 2. History of peripheral arterial disease. Currently on anticoagulation. 3. Likely underlying COPD. Plan 1. Hold Eliquis as may require further biopsy. 2. Pending pathology report. 3. If lymph node biopsy patient likely need mediastinoscopy given the location of central lung mass is not safe to approach from CT-guided needle approach is not amenable to bronchoscopy. 4. Hematology oncology recommendations Problems: JACQUELINE ADDISON MD, [facility] Feb 04, 2017 11:21
[2017-02-04 14:57] VITALS: BP 124/59; RESP 16
[2017-02-04 19:18] VITALS: BP 120/59; RESP 20
[2017-02-04] MEDS: TAMSULOSIN (SR) 0.4 MG CAP PO SCH (21:12)
--- NOTE | 2017-02-04 21:15 | PN ---
Date/Time of Note Date/Time of Note DATE: 02/04/17 TIME: 21:14 Assessment/Plan VTE Prophylaxis VTE Prophylaxis Intervention: other Lines/Catheters IV Catheter Type (from [facility]): Saline Lock Urinary Cath still in place: No Assessment/Plan Chief Complaint/Hosp Course IMPRESSION: 1. 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 2. chest pain.OR R.O 3. Diabetes mellitus. 4. hx smoking. 5. Anemia. 6 s/p lymph node biopsy PLAN PER PULMONARY and surgery s/p biopsy dr retana to f/u Problems: Subjective 24 Hr Interval Summary Subjective hx not possible: other (Right supraclavicular lymph node:) Exam/Review of Systems Vital Signs Vitals Vital Signs Date Time Temp Pulse Resp B/P Pulse Ox O2 Delivery O2 Flow Rate FiO2 02/04/17 19:18 97.9 65 20 120/59 99 02/03/17 10:00 Room Air Intake and Output 02/03/17 02/03/17 02/04/17 15:00 23:00 07:00 Intake Total 250 ml Output Total 5 ml Balance 245 ml Exam Respiratory: clear to auscultation Cardiovascular: regular rate and rhythm Gastrointestinal: soft Musculoskeletal: nl extremities to inspection Extremities: normal pulses Results Result Diagram: 02/04/17 0535 02/04/17 0536 Results 24 hrs Laboratory Tests Test 02/03/17 21:18 02/03/17 23:17 02/04/17 05:35 02/04/17 05:36 Bedside Glucose 130 Lactate Dehydrogenase 556 Carcinoembryonic Antigen < 0.3 White Blood Count 6.5 # Red Blood Count 4.04 L Hemoglobin 10.1 L Hematocrit 32.0 L Mean Corpuscular Volume 79.2 L Mean Corpuscular Hemoglobin 25.0 L Mean Corpuscular Hemoglobin Concent 31.6 L Red Cell Distribution Width 14.8 H Platelet Count 218 Mean Platelet Volume 10.0 Neutrophils % 63.5 Lymphocytes % 22.2 Monocytes % 8.7 Eosinophils % 4.6 Basophils % 0.8 Nucleated Red Blood Cells % 0.0 Neutrophils # (Manual) 4.2 Lymphocytes # 1.5 Monocytes # 0.6 Eosinophils # 0.3 Basophils # 0.1 Nucleated Red Blood Cells # 0.0 Sodium Level 135 Potassium Level 5.1 Chloride Level 102 Carbon Dioxide Level 25 Anion Gap 13 Blood Urea Nitrogen 34 H Creatinine 1.44 H Glucose Level 98 Calcium Level 8.9 Test 02/04/17 08:06 02/04/17 11:48 02/04/17 17:19 Bedside Glucose 119 114 135 Medications Medications Current Medications Aspirin (Halfprin) 81 mg DAILY PO Last administered on 02/04/17 08:07; Admin Dose 81 MG; Start 02/01/17 at 09:00 Clopidogrel Bisulfate (plaVIX) 75 mg DAILY PO Last administered on 02/04/17 08 :07; Admin Dose 75 MG; Start 02/01/17 at 09:00 Diclofenac Sodium (Voltaren) 75 mg BID PO Last administered on 02/04/17 21:12 ; Admin Dose 75 MG; Start 01/31/17 at 21:00 Ferrous Sulfate (Ferrous Sulfate (Ec)) 325 mg DAILY PO Last administered on 08:07; Admin Dose 325 MG; Start 02/01/17 at 09:00 Folic Acid (Folic Acid) 1 mg DAILY PO Last administered on 02/04/17 08:07; Admin Dose 1 MG; Start 02/01/17 at 09:00 Meclizine HCl (Antivert) 25 mg BID PRN PO DIZZINESS; Start 01/31/17 at 17:30 Tamsulosin HCl (Flomax) 0.4 mg HS PO Last administered on 02/04/17 21:12; Admin Dose 0.4 MG; Start 01/31/17 at 21:00 Ondansetron HCl (Zofran Inj) 4 mg Q6H PRN IV NAUSEA AND/OR VOMITING; Start 06/07 at 17:30 Acetaminophen (Tylenol Tab) 650 mg Q6H PRN PO PAIN LEVEL 1-3 OR FEVER; Start at 17:30 Docusate Sodium (Colace) 100 mg Q12H PRN PO CONSTIPATION; Start 01/31/17 at 17: 30 Magnesium Hydroxide (Milk Of Mag) 30 ml DAILY PRN PO CONSTIPATION; Start at 17:30 Bisacodyl (Dulcolax) 5 mg DAILY PRN PO CONSTIPATION; Start 01/31/17 at 17:30 Pantoprazole (Protonix Tab) 40 mg DAILY@06 PO Last administered on 02/04/17 06 :16; Admin Dose 40 MG; Start 02/01/17 at 06:00 Diagnostic Test (Pha) (Accu-Chek) 1 ea 02 XX ; Start 02/01/17 at 02:00 Miscellaneous Information 1 ea NOTE XX ; Start 01/31/17 at 18:30 Glucose (Glutose) 15 gm Q15M PRN PO DECREASED GLUCOSE; Start 01/31/17 at 18:30 Glucose (Glutose) 22.5 gm Q15M PRN PO DECREASED GLUCOSE; Start 01/31/17 at 18: 30 Dextrose (D50w Syringe) 25 ml Q15M PRN IV DECREASED GLUCOSE; Start 01/31/17 at 18:30 Dextrose (D50w Syringe) 50 ml Q15M PRN IV DECREASED GLUCOSE; Start 01/31/17 at 18:30 Glucagon (Glucagen) 1 mg Q15M PRN IM DECREASED GLUCOSE; Start 01/31/17 at 18:30 Glucose (Glutose) 15 gm Q15M PRN BUCCAL DECREASED GLUCOSE; Start 01/31/17 at 18 :30 Acetaminophen/ Hydrocodone Bitart ([place] (5/325)) 1 tab Q6H PRN PO PAIN LEVEL 6 -10 Last administered on 02/04/17 02:44; Admin Dose 1 TAB; Start 02/03/17 at 10 :00 Nadolol (Corgard) 20 mg DAILY PO ; Start 02/05/17 at 09:00 NEDA VALVERDE MD Feb 04, 2017 21:15
[2017-02-05 02:00] VITALS: BP 111/56; RESP 20
[2017-02-05] MEDS: ACCU-CHEK XX SCH (02:00)
[2017-02-05] MEDS: PANTOPRAZOLE (EC) 40 MG TAB PO SCH (05:41)
[2017-02-05 07:28] VITALS: BP 125/58; RESP 18
[2017-02-05] MEDS: INSULIN ASPART [NOVOLOG] 3 ML PEN SC SCH ×2 (08:12→12:15)
[2017-02-05] MEDS ORDERED: NADOLOL 40 MG TAB PO SCH (09:00)
[2017-02-05] MEDS: FERROUS SULFATE (EC) 325 MG TAB PO SCH (09:14)
[2017-02-05] MEDS: CLOPIDOGREL 75 MG TAB PO SCH (09:14)
[2017-02-05] MEDS: ASPIRIN (EC) 81 MG TAB PO SCH (09:14)
[2017-02-05] MEDS: DICLOFENAC (EC) 75 MG TAB PO SCH (09:18)
[2017-02-05] MEDS: FOLIC ACID 1 MG TAB PO SCH (09:18)
--- NOTE | 2017-02-05 11:34 | PN ---
Date/Time of Note Date/Time of Note DATE: 02/05/17 TIME: 11:30 Assessment/Plan Lines/Catheters IV Catheter Type (from Nrs): Saline Lock [place] in Place (from Nrs): No Assessment/Plan Chief Complaint/Hosp Course 1. 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 Chest pain: trops neg; likely 2/2 to above; no cp today -as above 3. Microcytic hypochromic anemia: no beto bleed noted -work up per medicine -monitor and transfuse prn 4. Diabetes -blood sugar optimization Patient seen and examined in collaboration with Dr. Hitesh Willingham. Thank you. Problems: Subjective 24 Hr Interval Summary Feeling good. Right clavicular incision dry, without drainage. No sob, cough, n/ v/d/dysuria, cp, palpitations, chaudhry, dizziness. Exam/Review of Systems Vital Signs Vitals Vital Signs Date Time Temp Pulse Resp B/P Pulse Ox O2 Delivery O2 Flow Rate FiO2 02/05/17 07:28 98.5 59 18 125/58 97 02/03/17 10:00 Room Air Intake and Output 02/04/17 02/04/17 02/05/17 15:00 23:00 07:00 Intake Total 960 ml 800 ml Balance 960 ml 800 ml Exam Free Text/Dictation Constitutional: alert, oriented Psych: anxiety Head: atraumatic, normocephalic Eyes: nl conjunctiva, nl lids, nl sclera ENMT: mucosa pink and moist Neck: supple right clavicular incision site dry with min erythema Respiratory: normal air movement Cardiovascular: nl pulses, regular rate and rhythm, No edema Gastrointestinal: non-tender, soft Genitourinary - Male: nl penis, nl scrotum Musculoskeletal: nl extremities to inspection Extremities: normal pulses Neurological: nl mental status, nl speech, nl strength Skin: No ecchymosis Results Result Diagram: 02/04/17 0535 02/04/17 0536 ANGELICA SOTOMAYOR NP Feb 05, 2017 11:33
--- NOTE | 2017-02-05 11:57 | CONS ---
Date/Time of Note Date/Time of Note DATE: 02/05/17 TIME: 11:55 Consult Date/Type/Reason Admit Date/Time Jan 31, 2017 at 16:34 Initial Consult Date 02/01/17 Type of Consultation: Pulmonary Ordering Provider: NEDA VALVERDE MD Subjective Patient comfortable this morning. I discussed with him the pathology findings from lymph node biopsy. Objective Vital Signs Date Time Temp Pulse Resp B/P Pulse Ox O2 Delivery O2 Flow Rate FiO2 02/05/17 07:28 98.5 59 18 125/58 97 02/03/17 10:00 Room Air Intake and Output 02/04/17 02/04/17 02/05/17 15:00 23:00 07:00 Intake Total 960 ml 800 ml Balance 960 ml 800 ml Exam PHYSICAL EXAMINATION GENERAL: Well-nourished well-developed gentleman comfortable at rest. VITAL SIGNS: see below. HEENT: Pupils equal, round, and reactive to light CARDIAC: S1, S2, systolic ejection murmur. CHEST: Clear to air entry bilaterally ABDOMEN: Mildly distended. Diminished bowel sounds. EXTREMITIES: No cyanosis, clubbing edema NEUROLOGIC: No focal deficits Results/Medications Result Diagram: 02/04/17 0535 02/04/17 0536 Results 24 hrs Laboratory Tests Test 02/04/17 17:19 02/04/17 21:11 02/05/17 08:10 Bedside Glucose 135 111 140 Medications Current Medications Aspirin (Halfprin) 81 mg DAILY PO Last administered on 02/05/17 09:14; Admin Dose 81 MG; Start 02/01/17 at 09:00 Clopidogrel Bisulfate (plaVIX) 75 mg DAILY PO Last administered on 02/05/17 09 :14; Admin Dose 75 MG; Start 02/01/17 at 09:00 Diclofenac Sodium (Voltaren) 75 mg BID PO Last administered on 02/05/17 09:18 ; Admin Dose 75 MG; Start 01/31/17 at 21:00 Ferrous Sulfate (Ferrous Sulfate (Ec)) 325 mg DAILY PO Last administered on 09:14; Admin Dose 325 MG; Start 02/01/17 at 09:00 Folic Acid (Folic Acid) 1 mg DAILY PO Last administered on 02/05/17 09:18; Admin Dose 1 MG; Start 02/01/17 at 09:00 Meclizine HCl (Antivert) 25 mg BID PRN PO DIZZINESS Last administered on 09:20; Admin Dose 25 MG; Start 01/31/17 at 17:30 Tamsulosin HCl (Flomax) 0.4 mg HS PO Last administered on 02/04/17 21:12; Admin Dose 0.4 MG; Start 01/31/17 at 21:00 Ondansetron HCl (Zofran Inj) 4 mg Q6H PRN IV NAUSEA AND/OR VOMITING; Start 06/07 at 17:30 Acetaminophen (Tylenol Tab) 650 mg Q6H PRN PO PAIN LEVEL 1-3 OR FEVER; Start at 17:30 Docusate Sodium (Colace) 100 mg Q12H PRN PO CONSTIPATION; Start 01/31/17 at 17: 30 Magnesium Hydroxide (Milk Of Mag) 30 ml DAILY PRN PO CONSTIPATION; Start at 17:30 Bisacodyl (Dulcolax) 5 mg DAILY PRN PO CONSTIPATION; Start 01/31/17 at 17:30 Pantoprazole (Protonix Tab) 40 mg DAILY@06 PO Last administered on 02/05/17 05 :41; Admin Dose 40 MG; Start 02/01/17 at 06:00 Diagnostic Test (Pha) (Accu-Chek) 1 ea 02 XX ; Start 02/01/17 at 02:00 Miscellaneous Information 1 ea NOTE XX ; Start 01/31/17 at 18:30 Glucose (Glutose) 15 gm Q15M PRN PO DECREASED GLUCOSE; Start 01/31/17 at 18:30 Glucose (Glutose) 22.5 gm Q15M PRN PO DECREASED GLUCOSE; Start 01/31/17 at 18: 30 Dextrose (D50w Syringe) 25 ml Q15M PRN IV DECREASED GLUCOSE; Start 01/31/17 at 18:30 Dextrose (D50w Syringe) 50 ml Q15M PRN IV DECREASED GLUCOSE; Start 01/31/17 at 18:30 Glucagon (Glucagen) 1 mg Q15M PRN IM DECREASED GLUCOSE; Start 01/31/17 at 18:30 Glucose (Glutose) 15 gm Q15M PRN BUCCAL DECREASED GLUCOSE; Start 01/31/17 at 18 :30 Acetaminophen/ Hydrocodone Bitart ([place] (5/325)) 1 tab Q6H PRN PO PAIN LEVEL 6 -10 Last administered on 02/04/17t 21:19; Admin Dose 1 TAB; Start 02/03/17 at 10 :00 Nadolol (Corgard) 20 mg DAILY PO Last administered on 02/05/17 09:17; Admin Dose 20 MG; Start 02/05/17 at 09:00 Assessment/Plan Chief Complaint/Hosp Course Assessment 1. Right hilar lung mass, excision biopsy of supraclavicular lymph node shows non-small cell lung cancer. 2. History of peripheral arterial disease. Currently on anticoagulation. 3. Likely underlying COPD. Plan 1. Consider resumption of Eliquis. 2. Pending pathology report. 3. case discussed with hematology oncology. Patient may benefit from radiation therapy in addition to chemotherapy pending final tumor markers. 4. MRI of brain today Discharge okay today from pulmonary standpoint. I will follow in office. Patient already has a scheduled appointment with me. Problems: JACQUELINE ADDISON MD, [facility] Feb 05, 2017 11:57
--- NOTE | 2017-02-05 13:38 | PDOCDIS ---
Discharge Instructions CONDITION Patient Condition: Stable HOME CARE INSTRUCTIONS: Special Diet: carb control ACTIVITY: Activity Restrictions: Slowly Increase Activity FOLLOW UP/APPOINTMENTS Follow-up Plan f/u own pcp [address] retana [address] blankenship 1 wk NEDA VALVERDE MD Feb 05, 2017 13:38
[2017-02-05 14:00] VITALS: BP 137/60; RESP 18
--- NOTE | 2017-02-05 15:04 | RADRPT ---
PROCEDURE: MR Brain with contrast. CLINICAL INDICATION: Brain lab preoperative evaluation. Lung carcinoma TECHNIQUE: Limited postcontrast T1-weighted axial imaging number for preoperative planning. 10 ml P roHance nonionic intravenous contrast was administered without complication. COMPARISON: None FINDINGS: No evidence of restricted diffusion to suggest acute or early subacute ischemic infarction. There i s no evidence of intracranial hemorrhage, mass effect, or midline shift. No extra-axial fluid collec tions are seen. No hypointense signal abnormalities are seen on the GRE images to suggest the presence of blood degr adation products. The brain parenchyma is normal in signal intensity and morphology with preservation of chaudhry white di fferentiation . The brain parenchyma is moderately prominent compatible with central cerebral and c erebellar The posterior fossa contents, brainstem, seventh - eighth cranial nerve complexes, pituitary axis, o rbits, paranasal sinuses, and mastoid air cells are unremarkable. Normal flow voids are visible in the proximal intracranial arteries and dural sinuses, indicating pa tency. IMPRESSION: 1. No evidence of acute or early subacute ischemic infarction, pathologic enhancement to suggest met astatic disease, or intracranial hemorrhage. 2. Moderate central cerebral and cerebellar volume loss. RPTAT:AAJJ Physician aLy Date Time Electronically viewed and signed by Physician Lay on 02/05/2017 15:04 PATRICIA/
--- NOTE | 2017-02-05 20:30 | CONS ---
Date/Time of Note Date/Time of Note DATE: 02/05/17 TIME: 20:26 Assessment/Plan Assessment/Plan Chief Complaint/Hosp Course 71 yo male with # Right upper lung mass with mediastinal and right supraclavicular lymphadenopathy. Additional smaller bilateral pulmonary nodules are seen -pt confirmed to have large cell lung ca -will need out patient PET CT -pt and daughter were informed of the diagnosis and that the patient is not a candidate for surgery or radiation at this time given the spread of disease throughout both lungs -will need to start chemotherapy as an out patient -pathology has drawn ALK, EGFR and PDL-1 .will f/u -s/p supraclavicular LN bx # History of peripheral arterial disease. -Currently on Eliquis which was held for biopsy -can resume after biopsy #COPD. -pt currently with stable breathing -continue breathing treatments as necessary Problems: (1) COPD (chronic obstructive pulmonary disease) Status: Chronic Qualifiers: COPD type: emphysema (2) Bronchogenic cancer of right lung Status: Chronic Consultation Date/Type/Reason Admit Date/Time Jan 31, 2017 at 16:34 Initial Consult Date 02/03/17 Type of Consultation: oncology Reason for Consultation lung ca Referring Provider: NEDA VALVERDE MD 24 HR Interval Summary Free Text/Dictation pt and daughter were informed of the diagnosis of lung cancer. pt currently states his SOB has improved. Exam/Review of Systems Vital Signs Vitals Vital Signs Date Time Temp Pulse Resp B/P Pulse Ox O2 Delivery O2 Flow Rate FiO2 02/05/17 14:00 98.0 58 18 137/60 99 02/03/17 10:00 Room Air Intake and Output 02/04/17 02/04/17 02/05/17 15:00 23:00 07:00 Intake Total 960 ml 800 ml Balance 960 ml 800 ml Exam Constitutional: alert, oriented Psych: no complaints Head: normocephalic Eyes: nl conjunctiva ENMT: nl external ears & nose Neck: non-tender, supple Respiratory: clear to auscultation Cardiovascular: regular rate and rhythm Gastrointestinal: soft Musculoskeletal: nl extremities to inspection Results Result Diagram: 02/04/17 0535 02/04/17 0536 Results 24 hrs Laboratory Tests Test 02/04/17 21:11 02/05/17 08:10 02/05/17 12:20 Bedside Glucose 111 140 144 KRISTINE PONCE M.D. Feb 05, 2017 20:30
--- NOTE | 2017-02-08 20:00 | DS ---
Date/Time of Note Date/Time of Note DATE: 02/08/17 TIME: 19:55 Discharge Summary Admission/Discharge Info Admit Date/Time Jan 31, 2017 at 16:34 Discharge Date/Time Feb 05, 2017 at 16:45 Discharge Diagnosis METASTATIC DISEASE, ADENOCARCINOMA ORIGINATED FROM THE LUNG Patient Condition: Serious Consults dR Vela, DR PONCE Procedures RESECTION OF THE RIGHT SUPRACLAVICULAR LYMPHATIC NODE WITH BIOPSY Hx of Present Illness PT PRESENTED WITH METASTATIC LUNG CANCER DISEASE. Hospital Course 71 yo male with # Right upper lung mass with mediastinal and right supraclavicular lymphadenopathy. Additional smaller bilateral pulmonary nodules are seen -pt confirmed to have large cell lung ca -will need out patient PET CT -pt and daughter were informed of the diagnosis and that the patient is not a candidate for surgery or radiation at this time given the spread of disease throughout both lungs -will need to start chemotherapy as an out patient -pathology has drawn ALK, EGFR and PDL-1 .will f/u -s/p supraclavicular LN bx # History of peripheral arterial disease. -Currently on Eliquis which was held for biopsy -can resume after biopsy #COPD. -pt currently with stable breathing -continue breathing treatments as necessary Home Meds Reported Medications Ferrous Sulfate* (Ferrous Sulfate*) 325 Mg Tabec, 325 MG PO DAILY, TAB 01/31/17 Clopidogrel Bisulfate (Clopidogrel) 75 Mg Tablet, 75 MG PO DAILY, #30 TAB 01/31/17 Diclofenac Sodium* (Diclofenac Sodium*) 75 Mg Tablet.dr, 75 MG PO BID, #60 TAB 09/02/16 Aspirin* (Aspirin* EC) 81 Mg Tablet.dr, 81 MG PO DAILY, TAB 09/02/16 Folic Acid* (Folic Acid*) 1 Mg Tablet, 1 MG PO DAILY, TAB 08/18/16 Metformin HCl (Metformin HCl ER) 500 Mg [id number], 500 MG PO, TAB 08/18/16 Meclizine Hcl* (Meclizine Hcl*) 25 Mg Tablet, 25 MG PO BID Y for DIZZINESS, TAB 08/18/16 Tamsulosin Hcl* (Tamsulosin Hcl*) 0.4 Mg Cap.er.24h, 0.4 MG PO DAILY, CAP 08/18/16 Nadolol (Nadolol) 20 Mg Tablet, 20 MG PO BID, TAB 08/02/14 Discontinued Reported Medications Citalopram Hydrobromide* (Celexa*) 20 Mg Tablet, 20 MG PO DAILY, #30 TAB 09/02/16 Discontinued Scripts Apixaban* (Eliquis*) 5 Mg Tablet, 5 MG PO BID for 28 Days, TAB Prov:NEDA VALVERDE MD 09/04/16 Primary Care Provider HENRIETTA Gray Feb 08, 2017 20:00
== END 2017-02-05 16:45 | disposition home or self-care (01) | DRG 824 ==
LOC: E/R 10:49 → MS2 16:34
PROVIDERS: ADMIT Internal Medicine Nephrology; ATTEND Internal Medicine Nephrology
PROC: 07B10ZX Excision of Right Neck Lymphatic, Open Approach, Diagnostic (ICD-10-PCS; principal; 2017-02-03 07:30)
DX: C77.0 Secondary and unspecified malignant neoplasm of lymph nodes of head, face and neck (principal); C34.11 Malignant neoplasm of upper lobe, right bronchus or lung; E11.51 Type 2 diabetes mellitus with diabetic peripheral angiopathy without gangrene; J44.9 Chronic obstructive pulmonary disease, unspecified; D50.9 Iron deficiency anemia, unspecified; Z87.891 Personal history of nicotine dependence; Z79.82 Long term (current) use of aspirin; Z79.02 Long term (current) use of antithrombotics/antiplatelets; Z95.820 Peripheral vascular angioplasty status with implants and grafts
CPT/HCPCS: 36415; 70552; 71010; 71275; 80048; 80053; 82378; 82550; 82553; 82962; 83615; 84484; 85025; 85610; 85730; 88307; 93005; J0690; J1815; J2250; J3010; J7040; Q9967

== ENCOUNTER 2017-02-19 18:55 | Inpatient (IN) | payer OTHER ==
[~2017-02-19] VITALS: Ht 177.8 cm; Wt 71.0 kg
[~2017-02-19 18:55] MED LIST changes: -APIX5TAB PO; -CITA20TA11 PO; +CLOP75TA27 PO; +FER325 PO
--- NOTE | 2017-02-19 21:52 | RADRPT ---
PROCEDURE: XR Chest. CLINICAL INDICATION: Shortness of breath. TECHNIQUE: Single frontal view. COMPARISON: Chest x-ray and CT scan of the chest dated 01/31/2017. FINDINGS: The lungs are clear. The heart size is normal. There is a large right paratracheal mass as seen on prior chest x-ray and CT scan of the chest. There is no pleural effusion. There is no pneumothorax. IMPRESSION: 1. Large right paratracheal mass consistent with neoplasm. 2. Otherwise unremarkable chest radiograph. RPTAT: QQ .Miles Thorne MD, Date Time Electronically viewed and signed by .Miles Thorne MD, on 02/19/2017 21:52 .R/
[2017-02-19 22:12] LABS: BASOPHILS % 0.4 % (0.0-2.0); EOSINOPHILS # 0.3 10^3/ul (0.0-0.5); EOSINOPHILS % 2.5 % (0.0-7.0); HEMATOCRIT 30.5 % (42.0-52.0); LYMPHOCYTES # 1.5 10^3/ul (0.8-2.9); LYMPHOCYTES % 14.5 % (15.0-51.0); MEAN CORPUSCULAR HEMOGLOBIN 25.7 pg (29.0-33.0); MEAN CORPUSCULAR HGB CONC 32.8 g/dl (32.0-37.0); MEAN CORPUSCULAR VOLUME 78.4 fl (82.0-101.0); MEAN PLATELET VOLUME 10.4 fl (7.4-10.4); MONOCYTE # 1.1 10^3/ul (0.3-0.9); MONOCYTES % 10.8 % (0.0-11.0); NEUTROPHILS % 71.3 % (39.0-77.0); PLATELET COUNT 175 10^3/UL (140-415); RED BLOOD COUNT 3.89 10^6/ul (4.70-6.10)
--- NOTE | 2017-02-19 22:19 | ERA ---
ER Documentation Chief Complaint Date/Time DATE: 02/19/17 TIME: 22:18 Chief Complaint shortness of breath HPI . . The patient is a 71-year-old male, presenting to the ER because of acute on chronic shortness of breath for 1 day he has history of metastatic lung CA, not a candidate for surgery or radiation therapy; he is awaiting for chemotherapy. He denies fever, chills, cough, neck pain, pleuritic chest pain, chest pain with exertion or diaphoresis or vomiting. He denies abdominal pain, vomiting, dysuria, diarrhea. He used to smoke until 5 months ago Past medical history: History of metastatic lung carcinoma, diabetes mellitus, BPH, hypertension, peripheral vascular disease, COPD Past surgical history: Right supraclavicular lymph node biopsy ROS All systems reviewed and are negative except as per history of present illness. Medications Home Meds Reported Medications Ferrous Sulfate* (Ferrous Sulfate*) 325 Mg Tabec, 325 MG PO DAILY, TAB 01/31/17 Clopidogrel Bisulfate (Clopidogrel) 75 Mg Tablet, 75 MG PO DAILY, #30 TAB 01/31/17 Aspirin* (Aspirin* EC) 81 Mg Tablet.dr, 81 MG PO DAILY, TAB 09/02/16 Folic Acid* (Folic Acid*) 1 Mg Tablet, 1 MG PO DAILY, TAB 08/18/16 Metformin HCl (Metformin HCl ER) 500 Mg [id number], 500 MG PO, TAB 08/18/16 Meclizine Hcl* (Meclizine Hcl*) 25 Mg Tablet, 25 MG PO BID Y for DIZZINESS, TAB 08/18/16 Tamsulosin Hcl* (Tamsulosin Hcl*) 0.4 Mg Cap.er.24h, 0.4 MG PO DAILY, CAP 08/18/16 Nadolol (Nadolol) 20 Mg Tablet, 20 MG PO BID, TAB 08/02/14 Discontinued Reported Medications Diclofenac Sodium* (Diclofenac Sodium*) 75 Mg Tablet.dr, 75 MG PO BID, #60 TAB 09/02/16 Allergies Allergies: Coded Allergies: No Known Allergy (Unverified , 02/19/17) PMhx/Soc History of Surgery: Yes (back surgery 1997, stent placement right leg 4 months ago) Anesthesia Reaction: No Hx Neurological Disorder: No Hx Respiratory Disorders: Yes (COPD) Hx Cardiac Disorders: No Hx Psychiatric Problems: No Hx Alcohol Use: No Hx Substance Use: No Hx Tobacco Use: Yes (QUIT CIGARETTES AUG 2016) Smoking Status: Former smoker Physical Exam Vitals Vital Signs Date Time Temp Pulse Resp B/P Pulse Ox O2 Delivery O2 Flow Rate FiO2 02/20/17 00:45 98.5 74 26 167/68 99 Room Air 02/19/17 23:55 77 20 99 21 02/19/17 21:14 98.3 62 19 128/61 98 Room Air 02/19/17 19:07 98.8 65 20 120/63 97 Physical Exam Const: No acute distress. Head: Atraumatic. Eyes: Normal Conjunctiva. ENT: Normal External Ears, Nose and Mouth. Neck: Full range of motion. No meningismus. Resp: Bilateral expiratory wheezes and bibasilar crackle Cardio: Regular rate and rhythm. Abd: Soft, non distended, normal bowel sounds, non tender. Skin: No petechiae or rashes. Back: No midline or flank tenderness. Ext: No cyanosis, or edema. Neur: Awake and alert. No focal deficit Psych: Normal Mood and Affect. Result Diagram: 02/19/17214602/19/172146 Results 24 hrs Laboratory Tests Test 02/19/17 21:47 White Blood Count 10.010^3/ul Red Blood Count 3.8910^6/ul Hemoglobin 10.0g/dl Hematocrit 30.5% Mean Corpuscular Volume 78.4fl Mean Corpuscular Hemoglobin 25.7pg Mean Corpuscular Hemoglobin Concent 32.8g/dl Red Cell Distribution Width 16.0% Platelet Count 45981^3/UL Mean Platelet Volume 10.4fl Neutrophils % 71.3% Lymphocytes % 14.5% Monocytes % 10.8% Eosinophils % 2.5% Basophils % 0.4% Nucleated Red Blood Cells % 0.0/100WBC Neutrophils # (Manual) 7.110^3/ul Lymphocytes # 1.510^3/ul Monocytes # 1.110^3/ul Eosinophils # 0.310^3/ul Basophils # 0.010^3/ul Nucleated Red Blood Cells # 0.010^3/ul Sodium Level 133mmol/L Potassium Level 4.6mmol/L Chloride Level 94mmol/L Carbon Dioxide Level 27mmol/L Anion Gap 17 Blood Urea Nitrogen 18mg/dl Creatinine 1.00mg/dl Glucose Level 106mg/dl Calcium Level 9.1mg/dl Troponin I 1.370ng/ml B-Type Natriuretic Peptide 1300PG/ML Current Medications Medications (Trade) Dose Ordered Sig/Kraig Route PRN Reason Start Time Stop Time Status Last Admin Dose Admin Levalbuterol (Xopenex Neb) 1.25 mg ONCE ONCE N 02/20/17 00:00 02/20/17 00:01 DC 02/19/17 23:55 Ipratropium [place] (Atrovent 0.02% (Neb)) 0.5 mg ONCE ONCE HHN 02/20/17 00:00 02/20/17 00:01 DC 02/19/17 23:55 Enoxaparin Sodium (Lovenox) 70 mg ONCE ONCE SC 02/20/17 00:00 02/20/17 00:01 DC 02/20/17 00:15 Aspirin 325 mg 325 mg ONCE ONCE PO 02/20/17 00:00 02/20/17 00:01 DC 02/20/17 00:11 Sodium Chloride (NS) 100 ml @ ud STK-MED ONCE .ROUTE 02/20/17 00:16 02/20/17 00:17 DC 02/20/17 00:39 Iohexol (Omnipaque 300mg/ ml) 150 ml STK-MED ONCE .ROUTE 02/20/17 00:16 02/20/17 00:17 DC 02/20/17 00:39 Furosemide (Lasix) 20 mg ONCE ONCE IV 02/20/17 01:00 02/20/17 01:01 DC 02/20/17 00:44 Procedures/MDM EKG: At 2135 hrs. Read by emergency physician Rate/Rhythm: Normal Sinus Rhythm 64 beats/min QRS, ST, T-waves: No ST elevation, no T inversion, sinus arrhythmia Impression: Abnormal EKG EKG: At 23:30 hr Read by emergency physician Rate/Rhythm: Normal Sinus Rhythm 69 beats/min QRS, ST, T-waves: No ST elevation, no T inversion Impression: Normal EKG [place] [address] Radiology Main Line: [phone] DIAGNOSTIC IMAGING REPORT Patient: MAYUR WILSON : 1945 Age: 71 Sex: M MR #: [id number] DOS: 02/19/17 2127 Ordering MD: ALEJA OCONNOR DO Location: E/R Room/Bed: PROCEDURE: XR Chest. CLINICAL INDICATION: Shortness of breath. TECHNIQUE: Single frontal view. COMPARISON: Chest x-ray and CT scan of the chest dated 01/31/2017. FINDINGS: The lungs are clear. The heart size is normal. There is a large right paratracheal mass as seen on prior chest x-ray and CT scan of the chest. There is no pleural effusion. There is no pneumothorax. IMPRESSION: 1. Large right paratracheal mass consistent with neoplasm. 2. Otherwise unremarkable chest radiograph. RPTAT: QQ .Miles Thorne MD, MD Date Time Electronically viewed and signed by .Miles Thorne MD, MD on 02/19/2017 21:52 .R/ CC: ALEJA OCONNOR DO [place] [address] Radiology Main Line: [phone] DIAGNOSTIC IMAGING REPORT Patient: MAYUR WILSON : 1945 Age: 71 Sex: M MR #: [id number] DOS: 02/19/17 2345 Ordering MD: LIDA LAU MD Location: E/R Room/Bed: PROCEDURE: CTA Chest and pulmonary angiogram. CLINICAL INDICATION: Shortness of breath rule out pulmonary embolism TECHNIQUE: CT scan of the chest and CT pulmonary angiogram was performed on a multidetector high-resolution CT scanner. High-resolution thin slice coronal and sagittal imaging was obtained from the axial source images. No 3-D/maximum intensity projection reformatted imaging was performed. The patient was examined following the intravenous administration of 100 cc of Omnipaque-300. The images were reviewed on a PACS workstation. The total exam CTDI equals 21.13 +12.48 mGy, and the total exam DLP equals 544.33 mGy-cm. One or more the following dose reduction techniques were utilized: Automated exposure control, adjustment of the mA and / or kV according to patient's size, or use of iterative reconstruction technique. COMPARISON: Chest x-ray of 02/19/2017 and CTA chest of 01/31/2017 FINDINGS: No filling defects suggestive of emboli are seen in main, lobar or segmental pulmonary arteries. Atherosclerotic changes including calcification in thoracoabdominal aorta and great vessels. Coronary artery calcification. Calcification in proximal right renal artery. No thoracic aortic aneurysm or dissection is seen. There is ectasia of the proximal descending thoracic aorta with maximal diameter 3.8 cm again seen. There is right supraclavicular and lower neck adenopathy including right supraclavicular mass measuring approximately 4 x 3.6 cm consistent with metastases. Surgical clips in the right lower neck region. There is a medial right upper lung lobe mass measuring approximately 4.7 x 2.9 cm consistent with malignancy. There is mediastinal adenopathy in pretracheal, right paratracheal, prevascular, aortopulmonary window, precarinal, subcarinal regions of the mediastinum and the right hilum with the largest mediastinal mass measuring approximately 3.8 x 3.6 cm in the right paratracheal/pre tracheal region and 3.8 x 3.2 cm in the precarinal region. There is a very small right pleural effusion. There is a small pericardial effusion. There is soft tissue stranding in the right axillary region and right lateral chest wall appearing since the previous study. Multiple bilateral lung nodules suggestive of metastases are seen the largest 1.2 cm in the right lower lobe and 1.4 cm in the right upper lobe and 1.5 cm in the left lower lobe. Linear atelectasis/fibrosis is also seen in the lungs. Degenerative changes in thoracic spine. Appearance of osteoarthrosis at shoulders. Degenerative changes in visualized lower cervical spine. IMPRESSION: No evidence of pulmonary emboli. Metastatic lung carcinoma with minimal interval increase in size of several mediastinal lymph nodes and lung nodules compared to the 01/31/2017 CTA. Soft tissue stranding in the right axillary region and right lateral chest wall appearing since the previous study. Please see above. RPTAT: HJES .Jose Quiñonez MD, MD Date Time Electronically viewed and signed by .Jose Quiñonez MD, MD on 02/20/2017 01:36 .S/ CC: LIDA LAU MD MEDICAL MAKING DECISION: The patient is a 71-year-old male, presenting with acute non-STEMI, acute CHF. He was treated with Lovenox 1 mg/kg subcu and aspirin 325 mg p.o. for acute non-STEMI, Lasix 20 mg IV for acute CHF, Xopenex 1.25 mg and Atrovent 0.5 mg for acute bronchospasm with good response. The differential diagnoses considered include but are not limited to acute coronary syndrome, acute myocardial infarction, pericarditis, pulmonary embolism , aortic dissection, pneumonia, pleural effusion, pneumothorax, GERD, chest wall pain. Departure Diagnosis: Primary Impression: NSTEMI (non-ST elevated myocardial infarction) Additional Impressions: CHF (congestive heart failure) Anemia Condition: Stable Comments I discussed the findings with the patient. I discussed the patient with his physician Dr. Arenas at 1:45 am who was made aware of the lab, the treatment, the patient condition. The patient is admitted to [facility] LIDA LAU MD Feb 19, 2017 22:19
[2017-02-19 22:37] LABS: CALCIUM 9.1 mg/dl (8.4-10.2); POTASSIUM 4.6 mmol/L (3.5-5.1)
[2017-02-19 22:59] LABS: TROPONIN-I 1.37 ng/ml (0.00-0.12)
[2017-02-20] VITALS (13 sets, daily range): BP systolic 105–124; BP diastolic 51–64; PULSE 56–75; RESP 15–20; TEMP 98.5; Ht 177.8 cm; Wt 71.0 kg
[2017-02-20] MEDS ORDERED: LEVALBUTEROL (NEB) 1.25 MG/0.5 ML AMP HHN ONE
[2017-02-20] MEDS ORDERED: ENOXAPARIN 80 MG/0.8 ML SYG SC ONE
[2017-02-20] MEDS ORDERED: ASPIRIN 325 MG TAB PO ONE
[2017-02-20] MEDS ORDERED: IPRATROPIUM (NEB) 0.5 MG/2.5 ML AMP HHN ONE
[2017-02-20] MEDS ORDERED: SOD CHLORIDE 0.9% 100 ML ONE (00:16)
[2017-02-20] MEDS ORDERED: IOHEXOL 300MG/ML 150 ML BTL ONE (00:16)
[2017-02-20] MEDS ORDERED: FUROSEMIDE 20 MG INJ IV ONE (01:00)
--- NOTE | 2017-02-20 01:36 | RADRPT ---
PROCEDURE: CTA Chest and pulmonary angiogram. CLINICAL INDICATION: Shortness of breath rule out pulmonary embolism TECHNIQUE: CT scan of the chest and CT pulmonary angiogram was performed on a multidetector high-r esolution CT scanner. High-resolution thin slice coronal and sagittal imaging was obtained from the axial source images. No 3-D/maximum intensity projection reformatted imaging was performed. The p atient was examined following the intravenous administration of 100 cc of Omnipaque-300. The images were reviewed on a PACS workstation. The total exam CTDI equals 21.13 +12.48 mGy, and the total exam DLP equals 544.33 mGy-cm. One or more the following dose reduction techniques were utilized: Automated exposure control, adjus tment of the mA and / or kV according to patient's size, or use of iterative reconstruction techniqu e. COMPARISON: Chest x-ray of 02/19/2017 and CTA chest of 01/31/2017 FINDINGS: No filling defects suggestive of emboli are seen in main, lobar or segmental pulmonary arteries. Ath erosclerotic changes including calcification in thoracoabdominal aorta and great vessels. Coronary artery calcification. Calcification in proximal right renal artery. No thoracic aortic aneurysm or dissection is seen. There is ectasia of the proximal descending thoracic aorta with maximal diameter 3.8 cm again seen. There is right supraclavicular and lower neck adenopathy including right suprac lavicular mass measuring approximately 4 x 3.6 cm consistent with metastases. Surgical clips in the right lower neck region. There is a medial right upper lung lobe mass measuring approximately 4.7 x 2.9 cm consistent with malignancy. There is mediastinal adenopathy in pretracheal, right paratrac heal, prevascular, aortopulmonary window, precarinal, subcarinal regions of the mediastinum and the right hilum with the largest mediastinal mass measuring approximately 3.8 x 3.6 cm in the right paratracheal/pre tracheal region and 3.8 x 3.2 cm in the precarinal region. There is a very small r ight pleural effusion. There is a small pericardial effusion. There is soft tissue stranding in th e right axillary region and right lateral chest wall appearing since the previous study. Multiple b ilateral lung nodules suggestive of metastases are seen the largest 1.2 cm in the right lower lobe a nd 1.4 cm in the right upper lobe and 1.5 cm in the left lower lobe. Linear atelectasis/fibrosis is also seen in the lungs. Degenerative changes in thoracic spine. Appearance of osteoarthrosis at s houlders. Degenerative changes in visualized lower cervical spine. IMPRESSION: No evidence of pulmonary emboli. Metastatic lung carcinoma with minimal interval increase in size of several mediastinal lymph nodes and lung nodules compared to the 01/31/2017 CTA. Soft tissue strand ing in the right axillary region and right lateral chest wall appearing since the previous study. Pl ease see above. RPTAT: HJES .Jose Quiñonez MD, Date Time Electronically viewed and signed by .Jose Quiñonez MD, on 02/20/2017 01:36 .S/
[2017-02-20] MEDS ORDERED: morphine 2 MG INJ IV PRN (05:30)
[2017-02-20 06:05] LABS: CK-MB 2.03 ng/ml (0.0-2.4); TROPONIN-I 1.39 ng/ml (0.00-0.12)
[2017-02-20] MEDS ORDERED: GLUCOSE GEL 15 GRAM TUBE BUCCAL PRN (06:15)
[2017-02-20] MEDS ORDERED: DEXTROSE 50% 50 ML SYRINGE IV PRN ×2 (06:15)
[2017-02-20] MEDS ORDERED: GLUCAGON 1 MG INJ IM PRN (06:15)
[2017-02-20] MEDS ORDERED: GLUCOSE GEL 15 GRAM TUBE PO PRN ×2 (06:15)
[2017-02-20] MEDS ORDERED: MECLIZINE 25 MG TAB PO PRN (06:30)
[2017-02-20] MEDS: PANTOPRAZOLE 40 MG INJ IV SCH (06:44)
[2017-02-20] MEDS: FUROSEMIDE 20 MG TAB PO SCH (06:48)
[2017-02-20] MEDS: INSULIN ASPART [NOVOLOG] 3 ML PEN SC SCH ×4 (07:55→20:23)
[2017-02-20] MEDS ORDERED: FERROUS GLUCONATE (EC) 325 MG TAB PO SCH (09:00)
[2017-02-20] MEDS ORDERED: NITROGLYCERIN 2% 1 GM OINT PKT TD SCH (09:00)
[2017-02-20] MEDS ORDERED: MECLIZINE 25 MG TAB PO SCH (09:00)
[2017-02-20] MEDS: FERROUS SULFATE (EC) 325 MG TAB PO SCH (09:09)
[2017-02-20] MEDS: CLOPIDOGREL 75 MG TAB PO SCH (09:09)
[2017-02-20] MEDS: ASPIRIN 81 MG TAB PO SCH (09:09)
[2017-02-20] MEDS: FOLIC ACID 1 MG TAB PO SCH (09:09)
[2017-02-20] MEDS: NADOLOL 40 MG TAB PO SCH (09:11)
[2017-02-20] MEDS: SALMETEROL/FLUTICASONE 250/50 INHA INH SCH ×2 (09:12→20:22)
[2017-02-20] MEDS: ENOXAPARIN 80 MG/0.8 ML SYG SC SCH (09:15)
--- NOTE | 2017-02-20 09:23 | QN ---
Documentation Comment H+P done see dictation A/P 71 Y/O with Lung Ca, Abdominal aneursym, leg Aneursym p/w with sob, cp for few days worse yesterday at rest +dizziness, diaphoresis EKG: no acute ST/T wave changes Troponin elevated 1.[address] Auguste will see pt, c/w ASA/Plavix/Lovenox/B camelia Currently patient is chest pain free KLARISSA WHITTAKER MD Feb 20, 2017 09:23
[2017-02-20] MEDS: IPRATROPIUM (NEB) 0.5 MG/2.5 ML AMP HHN SCH ×4 (09:30→20:47)
[2017-02-20 11:13] LABS: CK-MB 1.22 ng/ml (0.0-2.4); TROPONIN-I 1.09 ng/ml (0.00-0.12)
--- NOTE | 2017-02-20 15:00 | HP ---
DATE OF ADMISSION: 02/20/2017 REASON FOR ADMISSION: Chest pain. HISTORY OF PRESENT ILLNESS: Mr. Duran is a 71-year-old male with an extensive history of smoking in the past, history of peripheral vascular disease, status post right popliteal angioplasty, history of abdominal aortic aneurysm who was recently admitted in [facility] and was found to have a lung mass. Patient had a lymph node biopsy and the final discharge diagnosis was adenocarcinoma from the lung and was supposed to start chemotherapy with in next few days. According to the patient he has been noticing shortness of breath and some intermittent chest pain for the past few weeks. Also associated with some cough. Yesterday according to the daughter, the patient was having some chest pain, pressure- like in the center of the chest and even at rest and after a few minutes the patient was diaphoretic and was feeling very dizzy. That made her worried and she brought her to the emergency department. The patient is also having intermittent chills. Denies any fevers and denies any orthopnea, PND and lower extremity edema. According to the daughter, the patient 5 months ago was admitted and was in [facility] and had a complete workup for the chest pain including echocardiogram and stress test and was told everything was normal. On admission to the ED, vital signs were blood pressure 110/55, heart rate 63. EKG did not show any acute ST-T wave changes. However, had troponin that was 1.370 and was admitted for further management. PAST MEDICAL HISTORY: 1. Hypertension. 2. History of peripheral vascular disease, status post right popliteal artery angioplasty. 3. Diabetes. 4. Abdominal aortic aneurysm. MEDICATIONS: Taking at home are aspirin, Plavix, Celexa, iron, calcium, and metformin. PAST SURGICAL HISTORY: Significant for right popliteal artery angioplasty and lymph node biopsy. SOCIAL HISTORY: Has been smoker throughout his life. Denies any alcohol or any drug use. Lives with her daughter. FAMILY HISTORY: No history of cardiac disease in the family. REVIEW OF SYSTEMS: The patient complained of shortness of breath, cough and chest pain. Also positive for dizziness. Denies any abdominal pain, nausea, vomiting, diarrhea. Denies any headache, any blurry vision. Denies any rash. Denies any focal neurological deficit. PHYSICAL EXAMINATION: VITAL SIGNS: Blood pressure 109/57, heart rate is 68, respirations 20. The patient is afebrile, saturating 98 percent on room air. GENERAL APPEARANCE: Patient is well developed, well nourished, alert, does not appear to be in any acute distress. Denies any chest pain currently. HEENT: Head is atraumatic, normocephalic. Pupils equal, round, react to light. Patient has multiple lymph nodes felt in the neck. No JVD. LUNGS: Some decreased breath sounds on the right. HEART: Regular. Normal S1, S2. No murmurs, rubs, or gallops. ABDOMEN: Soft, nontender, nondistended. Positive bowel sounds. EXTREMITIES: No clubbing, cyanosis, or edema. NEUROLOGICAL: Patient is awake, alert, no focal deficits. LABS: Showed BMP within normal limits. BUN of 18 and a creatinine of 1.00. White count of 10.0, hemoglobin 10.0, platelet count is 175. EKG does not show any acute ST-T wave changes. Chest x-ray shows large right paratracheal mass consistent with neoplasm and patient also had a CT chest and thorax and angiogram that showed no evidence of pulmonary emboli. Metastatic lung carcinoma with minimal increase in the size of several mediastinal lymph nodes. The lungs nodes compared to 05/29. Soft tissue stranding in the right axillary region, right lateral chest wall appearing since the previous study. Troponins were 1.370 and 1.390. ASSESSMENT: This is a 71-year-old, presenting with: 1. Chest pain with no EKG changes, however, troponins are positive at 1.3 70 and 1.390. Patient has history of smoking and the patient likely non-ST elevation myocardial infarction (NSTEMI) and need to rule out for cardiac ischemia. 2. Shortness of breath with cough likely secondary to metastatic lung carcinoma (CA). Plan was to get the chemotherapy this next week. 3. Chronic obstructive pulmonary disease (COPD). 4. Anemia. 5. Hypertension. 6. Hypercholesteremia. 7. Peripheral vascular disease, status post right popliteal angioplasty. PLAN: 1. At this period of time the patient is admitted to a telemetry bed. 2. Continue the patient on aspirin, nadolol, Plavix and also on Lovenox. 3. The patient will also need some MARGARET inhibitor. 4. Echo has been pending. 5. Cardiology consultation with Dr. Auguste has already been informed. 6. Rest of the treatment will depend on the patient's hospitalization course. Dictated By: MD JUN Núñez/krzysztof/yariel /Document#: [id number]
--- NOTE | 2017-02-20 19:12 | RADRPT ---
Echocardiogram Report Patient Name: MAYUR WILSON Gender: Male Date: 1945 Study Date: 20-Feb-2017 Recreational Therapy Technician: Natalee Sifuentes [facility] Location: [facility] Ref. Physician: NEDA VALVERDE Quality: Good Procedures: Transthoracic echocardiogram with complete 2D, M-Mode, and doppler examination. Indications: NSTEMI. 2D/M Mode Doppler Measurement Value Normal Ranges Measurement Value Normal Ranges LVIDd 2D 4.4 3.5 - 5.6 cm ALEJANDRINA Vmax 2.2 cm2 LVIDs 2D 2.9 2.1 - 4.1 cm ALEJANDRINA VTI 2.2 cm2 LVPWd 2D 1.2 0.6 - 1.1 cm AV Peak Thompson 1.3 m/sec IVSd 2D 1.2 0.6 - 1.1 cm AV Peak PG 6.5 mmHg AoR Diam 2D 3.6 2.0 - 3.7 cm LVOT Peak Thompson 1.0 m/sec EDV 2D 89.4 cm3 LVOT Peak PG 4.0 mmHg ESV 2D 23.9 cm3 MV E Peak Thompson 0.8 m/sec LA Dimen 2D 2.7 2.3 - 4.0 cm MV A Peak Thompson 0.8 m/sec LVOT Diam 1.9 cm MV E/A 0.9 MV Decel Time 269 msec MV Decel [place] 3 MV E/A 0.9 TR Peak Thompson 2.7 m/sec TR Peak PG 29.8 mmHg RVSP 33.0 mmHg Findings Left Ventricle: Lower limits of normal systolic function. Normal left ventricular cavity size. Mild concentric left ventricular hypertrophy. Ejection fraction is visually estimated at 50 %. Tissue Doppler/Mitral Doppler indices are consistent with impaired relaxation (Stage I diastolic dysfunction). These segments of the LV are hypokinetic anteroseptum mid segment. Right Ventricle: Normal right ventricular size. Normal right ventricular systolic function. Left Atrium: The left atrium is normal in size. Right Atrium: The right atrium is normal in size. Mitral Valve: Normal appearance and function of the mitral valve with trace physiologic regurgitation. Aortic Valve: No hemodynamically significant aortic stenosis by doppler. Aortic cusps appear mildly calcified. Trace to mild aortic valve regurgitation. Tricuspid Valve: Normal appearance of the tricuspid valve. Estimated peak PA systolic pressure 33 mmHg. There is trace tricuspid regurgitation. Pulmonic Valve: Normal pulmonic valve appearance. There is mild to moderate pulmonic regurgitation. Pericardium: Trivial pericardial effusion. Aorta: Normal aortic root. IVC: Normal size and normal respiratory collapse consistent with normal right atrial pressure. Conclusions 1.Lower limits of normal systolic function. Normal left ventricular cavity size. Mild concentric left ventricular hypertrophy. Ejection fraction is visually estimated at 50 %. Tissue Doppler/Mitral Doppler indices are consistent with impaired relaxation (Stage I diastolic dysfunction). These segments of the LV are hypokinetic anteroseptum mid segment. 2.Normal appearance and function of the mitral valve with trace physiologic regurgitation. 3.Trace to mild aortic valve regurgitation. 4.Normal appearance of the tricuspid valve. Estimated peak PA systolic pressure 33 mmHg. There is trace tricuspid regurgitation. 5.Normal pulmonic valve appearance. There is mild to moderate pulmonic regurgitation. Electronically Signed By: Phu Auguste 20-Feb-2017 19:11:38 -0700 Patient Name: MAYUR WILSON Study Date: 20-Feb-2017 [id number]
[2017-02-20] MEDS: TAMSULOSIN (SR) 0.4 MG CAP PO SCH (20:08)
[2017-02-20] MEDS: ISOSORBIDE DINITRATE 10 MG TAB PO SCH (20:11)
[2017-02-20] MEDS: ACETAMINOPHEN 325 MG TAB PO PRN (20:21)
[2017-02-20] MEDS: ACCU-CHEK XX SCH (20:23)
[2017-02-21] VITALS (12 sets, daily range): BP systolic 91–113; BP diastolic 51–57; PULSE 63–71; RESP 15–19
[2017-02-21] MEDS: IPRATROPIUM (NEB) 0.5 MG/2.5 ML AMP HHN SCH ×6 (00:01→20:17)
[2017-02-21] MEDS ORDERED: ACCU-CHEK XX SCH (02:00)
[2017-02-21] MEDS: PANTOPRAZOLE 40 MG INJ IV SCH (05:45)
[2017-02-21] MEDS: FUROSEMIDE 20 MG TAB PO SCH (05:45)
[2017-02-21] MEDS: ACETAMINOPHEN 325 MG TAB PO PRN (06:36)
[2017-02-21 07:45] LABS: CK-MB 1.83 ng/ml (0.0-2.4); TROPONIN-I 0.932 ng/ml (0.00-0.12)
[2017-02-21] MEDS: LEVALBUTEROL (NEB) 1.25 MG/0.5 ML AMP HHN PRN (08:17)
--- NOTE | 2017-02-21 08:44 | CONS ---
DATE OF ADMISSION: 02/20/2017 DATE OF CONSULTATION: 02/20/2017 REASON FOR CONSULTATION: Positive troponin, concerning for non- ST-elevation myocardial infarction. REFERRING PHYSICIAN: Kasia Obregon MD and Nahid Arenas MD HISTORY OF PRESENT ILLNESS: The patient is a 71-year-old male with history of extensive tobacco intake, quit times 6 months at the time of a diagnosis of lung cancer made in January,, hypertension, peripheral arterial disease, status post a right popliteal artery angioplasty, diabetes mellitus, abdominal aortic aneurysm, who presents with complaints of worsening shortness of breath, intermittent chest pain, associated cough. The patient describes chest pain as pressure like in mid portion of chest, and at times related to exertional activities. In addition, the patient has been having mild dizziness. Per daughter, the patient has had a recent echo and stress test examination in the last 3 to 4 months, which returned without significant findings. Upon arrival in the emergency department, temperature of 98.8, blood pressure 120/73, pulse 65, respirations 20, sating 95 percent. LABORATORY DATA: The patient's labs revealed a white count of 10, hemoglobin 10, and platelet count 175. Sodium 133, potassium 4.6, creatinine 1.0, BUN 18, troponin 1.37, BNP of 1300. The patient underwent a chest x-ray revealing large right peritracheal mass consistent with neoplasm, but clear lungs and a CT CTA that revealed no evidence of pulmonary emboli, metastatic lung carcinoma with minimal interval increase in size of several mediastinal lymph nodes and lung nodules compared to CTA on 01/31/2017. Soft tissue stranding in the right axillary region and right lateral chest. The patient's electrocardiogram revealed normal sinus rhythm, rate of 64, with sinus arrhthymias, nonspecific ST/T wave changes diffusely. The patient subsequently has been admitted to the floor where he has been placed on nadolol, aspirin, Plavix, and Lovenox subcu daily. Patient has had troponin trending going from 1.37 down to 1.090. Patient at this time denies ongoing chest pain. PAST MEDICAL HISTORY: As above in HPI. MEDICATIONS: In the hospital 1. Nadolol 20 mg daily. 2. Folic acid 1 mg daily. 3. Aspirin 81 mg daily. 4. Plavix 75 mg daily. 5. Advair Diskus. 6. Nitropaste 1 inch q.12 hours. 7. Lovenox 70 mg subcu q.12 hours. 8. Ferrous sulfate 325 mg daily. 9. Insulin sliding scale. 10. Antivert. 11. Protonix 40 mg IV daily. 12. Lasix 20 mg daily. 13. Xopenex, Tylenol, morphine p.r.n. ALLERGIES: NO KNOWN DRUG ALLERGIES. SOCIAL HISTORY: Prior tobacco, quit times 6 or 7 months. No ETOH or illicit drug use. FAMILY HISTORY: No history of sudden cardiac or early CAD. REVIEW OF SYSTEMS: As above in HPI. CONSTITUTIONAL: No fevers or chills. PULMONARY: No current shortness of breath. CARDIOVASCULAR: Intermittent chest pain. Positive troponin. GASTROINTESTINAL: No vomiting. GENITOURINARY: No hematuria. MUSCULOSKELETAL: Degenerative joint disease. PSYCHIATRIC: The patient has depression. NEUROLOGIC: . PHYSICAL EXAMINATION: VITAL SIGNS: Temperature 98.3, blood pressure 161/34 to 58, pulse 70, respirations 20, sating 98 percent. GENERAL: The patient is alert, awake, in no acute distress. NECK: JVP approximately 8 to 9 cm . LUNGS: Fair air movement throughout. HEART: Regular rate and rhythm. Normal S1, S2 with 1 out of 6 systolic murmur. Nondisplaced PMI. ABDOMEN: Positive bowel sounds. Soft. EXTREMITIES: No pitting edema. One plus pulses bilateral posterior. ADDITIONAL LABS: Labs with most recently from today, troponin trended down to 1.090, LDL 73, HDL 23. IMAGING STUDIES: As above in HPI. Further imaging studies are reviewed . No further electrocardiograms reviewed at this time. IMPRESSION: 1. Positive troponin concerning for non-ST elevation myocardial infarction with down trending cardiac enzymes. 2. Hypertension under good control. 3. Electrocardiogram. 4. Dyslipidemia with low HDL. 5. Recent diagnosis of lung carcinoma. 6. Chronic obstructive pulmonary disease. 7. Prior extensive tobacco intake. 8. Anemia. RECOMMENDATIONS: 1. At this time, would maintain patient on telemetry monitoring to follow rhythm and rates closely. 2. Continue to trend the patient's cardiac enzymes ST-segment ongoing cardiac damage. 3. Follow patient's 2D echocardiogram for assessment of ejection fraction, wall motion, and major valve abnormalities. 4. Will obtain the patient's most recent stress test from [place]. 5. Continue the patient's beta camelia at this time. 6. Continue the patient's aspirin and Plavix. Lovenox has to be changed to b.i.d. dosing given normal renal function. 7. Will consider left heart catheterization and possible need for PTCA and stent placement early next week, as the patient currently has eaten and the [employer] was closed today due to lack of cardiothoracic surgical backup. Thank you for allowing to take part in the care of this patient. I will continue to follow very closely with you with recommendations made during his hospital course. Dictated By: Phu Auguste MD /[email or web address]/marco /Document#: [id number] CC: Nahid Arenas MD; Kasia Obregon MD;*[facility]*
[2017-02-21] MEDS: INSULIN ASPART [NOVOLOG] 3 ML PEN SC SCH ×4 (08:47→21:00)
[2017-02-21] MEDS: SALMETEROL/FLUTICASONE 250/50 INHA INH SCH ×2 (09:16→21:12)
[2017-02-21] MEDS: FOLIC ACID 1 MG TAB PO SCH (09:16)
[2017-02-21] MEDS: FERROUS SULFATE (EC) 325 MG TAB PO SCH (09:16)
[2017-02-21] MEDS: CLOPIDOGREL 75 MG TAB PO SCH (09:16)
[2017-02-21] MEDS: NADOLOL 40 MG TAB PO SCH (09:17)
[2017-02-21] MEDS: ISOSORBIDE DINITRATE 10 MG TAB PO SCH ×3 (09:18→21:00)
[2017-02-21] MEDS: ASPIRIN 81 MG TAB PO SCH (09:18)
[2017-02-21] MEDS: ENOXAPARIN 80 MG/0.8 ML SYG SC SCH (09:29)
--- NOTE | 2017-02-21 09:41 | RADRPT ---
Vent Rate: 61 bpm RR Interval: 0 msec GA Interval: 156 msec QRS Duration: 82 msec QT Interval: 410 msec QTC Interval: 412 msec P-R-T [place]: 71 - 70 - 69 degrees Normal sinus rhythm Septal infarct , age undetermined Abnormal ECG Electronically Signed By: Vernon Dumas [id number]
--- NOTE | 2017-02-21 12:54 | PN ---
Date/Time of Note Date/Time of Note DATE: 02/21/17 TIME: 12:52 Assessment/Plan VTE Prophylaxis VTE Prophylaxis Intervention: ambulation Lines/Catheters IV Catheter Type (from Nrsg): Saline Lock Assessment/Plan Chief Complaint/Hosp Course 1. Chest pain with no EKG changes, 2. Shortness of breath with cough likely secondary to metastatic lung carcinoma (CA). Plan was to get the chemotherapy this next week. 3. Chronic obstructive pulmonary disease (COPD), exacerbation. 4. Anemia. 5. Hypertension, CONTROLLED. 6. Hypercholesteremia. 7. Peripheral vascular disease, status post right popliteal angioplasty. Problems: Assessment/Plan 1.Telemetry service 2. Left heart catheterization pending. 3. Chemotherapy is pending Subjective 24 Hr Interval Summary Constitutional: improved, no complaints Musculoskeletal: no complaints Skin: no complaints Neurologic: no complaints Exam/Review of Systems Vital Signs Vitals Vital Signs Date Time Temp Pulse Resp B/P Pulse Ox O2 Delivery O2 Flow Rate FiO2 02/21/17 12:25 65 02/21/17 11:39 98.0 19 94/51 98 02/21/17 08:17 Aerosol 21 02/21/17 05:31 2.0 Intake and Output 02/20/17 02/20/17 02/21/17 14:59 22:59 06:59 Intake Total 1240 ml 90 ml Balance 1240 ml 90 ml Exam Constitutional: alert, oriented Respiratory: clear to auscultation Cardiovascular: regular rate and rhythm Results Result Diagram: 02/19/17214602/19/172146 Results 24 hrs Laboratory Tests Test 02/20/17 17:58 02/20/17 20:11 02/21/17 06:24 02/21/17 08:41 Bedside Glucose 149 155 149 Creatine Kinase 45 Creatine Kinase Index 4.1 Creatinine Kinase MB (Mass) 1.83 Troponin I 0.932 *H Medications Medications Current Medications Nadolol (Corgard) 20 mg DAILY PO Last administered on 02/21/17 09:17; Admin Dose 20 MG; Start 02/20/17 at 09:00 Tamsulosin HCl (Flomax) 0.4 mg HS PO Last administered on 02/20/17 20:08; Admin Dose 0.4 MG; Start 02/20/17 at 21:00 Folic Acid (Folic Acid) 1 mg DAILY PO Last administered on 02/21/17 09:16; Admin Dose 1 MG; Start 02/20/17 at 09:00 Aspirin (Aspirin) 81 mg DAILY PO Last administered on 02/21/17 09:18; Admin Dose 81 MG; Start 02/20/17 at 09:00 Clopidogrel Bisulfate (plaVIX) 75 mg DAILY PO Last administered on 02/21/17 09: 16; Admin Dose 75 MG; Start 02/20/17 at 09:00 Salmeterol Xinafoate/ Fluticasone (Advair 250/50 Diskus) 1 inh BID INH Last administered on 02/21/17 09:16; Admin Dose 1 INH; Start 02/20/17 at 09:00 Pantoprazole (Protonix Iv) 40 mg DAILY@06 IV Last administered on 02/21/17 05: 45; Admin Dose 40 MG; Start 02/20/17 at 06:00 Acetaminophen (Tylenol Tab) 650 mg Q6H PRN PO PAIN AND OR ELEVATED TEMP Last administered on 02/21/17 06:36; Admin Dose 650 MG; Start 02/20/17 at 05:30 Morphine Sulfate (morphine) 2 mg Q4H PRN IV SEVERE PAIN LEVEL 7-10; Start at 05:30 Furosemide (Lasix) 20 mg DAILY@06 PO Last administered on 02/21/17 05:45; Admin Dose 20 MG; Start 02/20/17 at 06:00 Enoxaparin Sodium (Lovenox) 70 mg DAILY SC Last administered on 02/21/17 09:29 ; Admin Dose 70 MG; Start 02/20/17 at 09:00 Diagnostic Test (Pha) (Accu-Chek) 1 ea 02 XX ; Start 02/21/17 at 02:00 Ferrous Sulfate (Ferrous Sulfate (Ec)) 325 mg DAILY PO Last administered on 02/21 09:16; Admin Dose 325 MG; Start 02/20/17 at 09:00 Meclizine HCl (Antivert) 25 mg BID PRN PO DIZZINESS Last administered on 09:19; Admin Dose 25 MG; Start 02/20/17 at 06:30 Miscellaneous Information 1 ea NOTE XX ; Start 02/20/17 at 06:15 Glucose (Glutose) 15 gm Q15M PRN PO DECREASED GLUCOSE; Start 02/20/17 at 06:15 Glucose (Glutose) 22.5 gm Q15M PRN PO DECREASED GLUCOSE; Start 02/20/17 at 06:15 Dextrose (D50w Syringe) 25 ml Q15M PRN IV DECREASED GLUCOSE; Start 02/20/17 at 06:15 Dextrose (D50w Syringe) 50 ml Q15M PRN IV DECREASED GLUCOSE; Start 02/20/17 at 06:15 Glucagon (Glucagen) 1 mg Q15M PRN IM DECREASED GLUCOSE; Start 02/20/17 at 06:15 Glucose (Glutose) 15 gm Q15M PRN BUCCAL DECREASED GLUCOSE; Start 02/20/17 at 06: 15 Isosorbide Dinitrate (Isordil) 10 mg TID PO Last administered on 02/21/17 09:18 ; Admin Dose 10 MG; Start 02/20/17 at 21:00 HENRIETTA PINO Feb 21, 2017 12:54
[2017-02-21] MEDS: TAMSULOSIN (SR) 0.4 MG CAP PO SCH (21:13)
[2017-02-21] MEDS: MECLIZINE 25 MG TAB PO PRN (23:57)
[2017-02-21] MEDS: IBUPROFEN 200 MG TAB PO PRN (23:58)
[2017-02-22] VITALS (11 sets, daily range): BP systolic 108–124; BP diastolic 53–65; PULSE 58–67; RESP 18–20
[2017-02-22] MEDS: IPRATROPIUM (NEB) 0.5 MG/2.5 ML AMP HHN SCH ×6 (01:00→20:22)
[2017-02-22] MEDS: ACCU-CHEK XX SCH (02:00)
[2017-02-22] MEDS: LEVALBUTEROL (NEB) 1.25 MG/0.5 ML AMP HHN PRN ×4 (02:02→20:21)
[2017-02-22] MEDS: PANTOPRAZOLE 40 MG INJ IV SCH (05:25)
[2017-02-22] MEDS: FUROSEMIDE 20 MG TAB PO SCH (05:28)
[2017-02-22] MEDS: INSULIN ASPART [NOVOLOG] 3 ML PEN SC SCH ×5 (07:55→21:00)
[2017-02-22] MEDS: CLOPIDOGREL 75 MG TAB PO SCH (08:46)
[2017-02-22] MEDS: ASPIRIN 81 MG TAB PO SCH (08:46)
[2017-02-22] MEDS: FOLIC ACID 1 MG TAB PO SCH (08:46)
[2017-02-22] MEDS: FERROUS SULFATE (EC) 325 MG TAB PO SCH (08:47)
[2017-02-22] MEDS: NADOLOL 40 MG TAB PO SCH (08:49)
[2017-02-22] MEDS: IBUPROFEN 200 MG TAB PO PRN (08:58)
[2017-02-22] MEDS: SALMETEROL/FLUTICASONE 250/50 INHA INH SCH ×2 (09:00→20:54)
[2017-02-22] MEDS: ISOSORBIDE DINITRATE 10 MG TAB PO SCH ×3 (09:00→21:00)
[2017-02-22] MEDS: ENOXAPARIN 80 MG/0.8 ML SYG SC SCH (09:01)
--- NOTE | 2017-02-22 14:13 | PN ---
Date/Time of Note Date/Time of Note DATE: 02/22/17 TIME: 14:12 Assessment/Plan VTE Prophylaxis VTE Prophylaxis Intervention: ambulation Lines/Catheters IV Catheter Type (from Nrs): Saline Lock Urinary Cath still in place: No Assessment/Plan Chief Complaint/Hosp Course 1. Chest pain with no EKG changes, 2. Shortness of breath with cough likely secondary to metastatic lung carcinoma (CA). Plan was to get the chemotherapy this next week. 3. Chronic obstructive pulmonary disease (COPD), exacerbation. 4. Anemia. 5. Hypertension, CONTROLLED. 6. Hypercholesteremia. 7. Peripheral vascular disease, status post right popliteal angioplasty. Problems: Assessment/Plan 1. C per dr Auguste 2. Talk to Felicia daughter Subjective 24 Hr Interval Summary Constitutional: improved, no complaints ENT: no complaints Respiratory: no complaints Cardiovascular: chest pain (night time) Gastrointestinal: no complaints Musculoskeletal: no complaints Skin: no complaints Exam/Review of Systems Vital Signs Vitals Vital Signs Date Time Temp Pulse Resp B/P Pulse Ox O2 Delivery O2 Flow Rate FiO2 02/22/17 13:21 64 20 98 21 02/22/17 11:23 99.6 108/53 02/22/17 05:52 2.0 02/21/17 20:18 Nasal Cannula Intake and Output 02/21/17 02/21/17 02/22/17 15:00 23:00 07:00 Intake Total 200 ml 400 ml Balance 200 ml 400 ml Exam Constitutional: alert Eyes: nl conjunctiva Neck: supple Respiratory: clear to auscultation Cardiovascular: regular rate and rhythm Results Result Diagram: 02/19/17214602/19/172146 Results 24 hrs Laboratory Tests Test 02/21/17 17:44 02/21/17 21:16 02/22/17 08:41 02/22/17 13:30 Bedside Glucose 150 143 144 136 Medications Medications Current Medications Nadolol (Corgard) 20 mg DAILY PO Last administered on 02/22/17 08:49; Admin Dose 20 MG; Start 02/20/17 at 09:00 Tamsulosin HCl (Flomax) 0.4 mg HS PO Last administered on 02/21/17 21:13; Admin Dose 0.4 MG; Start 02/20/17 at 21:00 Folic Acid (Folic Acid) 1 mg DAILY PO Last administered on 02/22/17 08:46; Admin Dose 1 MG; Start 02/20/17 at 09:00 Aspirin (Aspirin) 81 mg DAILY PO Last administered on 02/22/17 08:46; Admin Dose 81 MG; Start 02/20/17 at 09:00 Clopidogrel Bisulfate (plaVIX) 75 mg DAILY PO Last administered on 02/22/17 08: 46; Admin Dose 75 MG; Start 02/20/17 at 09:00 Salmeterol Xinafoate/ Fluticasone (Advair 250/50 Diskus) 1 inh BID INH Last administered on 02/21/17 21:12; Admin Dose 1 INH; Start 02/20/17 at 09:00 Pantoprazole (Protonix Iv) 40 mg DAILY@06 IV Last administered on 02/22/17 05: 25; Admin Dose 40 MG; Start 02/20/17 at 06:00 Acetaminophen (Tylenol Tab) 650 mg Q6H PRN PO PAIN AND OR ELEVATED TEMP Last administered on 02/21/17 06:36; Admin Dose 650 MG; Start 02/20/17 at 05:30 Morphine Sulfate (morphine) 2 mg Q4H PRN IV SEVERE PAIN LEVEL 7-10 Last administered on 02/22/17 04:23; Admin Dose 2 MG; Start 02/20/17 at 05:30 Furosemide (Lasix) 20 mg DAILY@06 PO Last administered on 02/22/17 05:28; Admin Dose 20 MG; Start 02/20/17 at 06:00 Enoxaparin Sodium (Lovenox) 70 mg DAILY SC Last administered on 02/22/17 09:01 ; Admin Dose 70 MG; Start 02/20/17 at 09:00 Diagnostic Test (Pha) (Accu-Chek) 1 ea 02 XX ; Start 02/21/17 at 02:00 Ferrous Sulfate (Ferrous Sulfate (Ec)) 325 mg DAILY PO Last administered on 02/22 08:47; Admin Dose 325 MG; Start 02/20/17 at 09:00 Miscellaneous Information 1 ea NOTE XX ; Start 02/20/17 at 06:15 Glucose (Glutose) 15 gm Q15M PRN PO DECREASED GLUCOSE; Start 02/20/17 at 06:15 Glucose (Glutose) 22.5 gm Q15M PRN PO DECREASED GLUCOSE; Start 02/20/17 at 06:15 Dextrose (D50w Syringe) 25 ml Q15M PRN IV DECREASED GLUCOSE; Start 02/20/17 at 06:15 Dextrose (D50w Syringe) 50 ml Q15M PRN IV DECREASED GLUCOSE; Start 02/20/17 at 06:15 Glucagon (Glucagen) 1 mg Q15M PRN IM DECREASED GLUCOSE; Start 02/20/17 at 06:15 Glucose (Glutose) 15 gm Q15M PRN BUCCAL DECREASED GLUCOSE; Start 02/20/17 at 06: 15 Isosorbide Dinitrate (Isordil) 10 mg TID PO Last administered on 02/21/17 09:18 ; Admin Dose 10 MG; Start 02/20/17 at 21:00 Meclizine HCl (Antivert) 25 mg BID PRN PO DIZZINESS Last administered on 23:57; Admin Dose 25 MG; Start 02/21/17 at 23:00 Ibuprofen (Motrin) 400 mg TID PRN PO PAIN OR TEMP ABOVE 38C Last administered on 02/22/17 08:58; Admin Dose 400 MG; Start 02/21/17 at 23:00 HENRIETTA PINO Feb 22, 2017 14:13
--- NOTE | 2017-02-22 14:19 | CONS ---
Date/Time of Note Date/Time of Note DATE: 02/22/17 TIME: 14:01 Assessment/Plan Assessment/Plan Chief Complaint/Hosp Course 71 yo male with # Right upper lung mass consistent with poorly differentiated adenocarcinoma - EGFR neg/ ALKneg/PDL-1 30% -pt has mediastinal and right supraclavicular lymphadenopathy. Additional smaller bilateral pulmonary nodules are seen. Thus patient has stage IV disease -although pt is scheduled to start chemotherapy in our office this Thursday, will need to complete the present cardiac workup prior to initiating chemotherapy # NSTEMI -appreciate cardiology recommendations -f/u 2dECHO -cont B camelia, ASA, Plavix and Lovenox BID -per cardiology, will consider left heart catheterization and possible need for PTCA and stent placement Problems: (1) Bronchogenic cancer of right lung Status: Chronic (2) Anemia Status: Acute Qualifiers: (3) COPD (chronic obstructive pulmonary disease) Status: Chronic Qualifiers: Consultation Date/Type/Reason Admit Date/Time Feb 20, 2017 at 01:46 Date of Consultation: Feb 22, 2017 Type of Consultation: Oncolology Reason for Consultation lung ca Referring Provider: NEDA VALVERDE Hx of Present Illness 71-year-old gentleman with an extensive smoking history accompanied by peripheral arterial disease who 4 mo ago underwent right popliteal artery angioplasty and stent placement. Per patient's daughter, patient has steadily declined with weight loss, and increasing cough with chest pain. CXR done at [facility] demonstrated a widened mediastinum concerning for mass. CT of the chest was performed demonstrated right upper lobe mass adjacent to the mediastinum with supraclavicular lymphadenopathy, concerning for malignancy. Pt has since been diagnosed with poorly differentiated adenocarcinoma of the lung, EGFR-, ALK- PDL-1with 30% expression. Pt was scheduled to start chemotherapy in our office on Thursday. He now presents with Chest pain and was found with an elevated troponin. Pt is now being worked up by cardiology for NSTEMI . He is scheduled for an angiogram. Constitutional: improved, no complaints Respiratory: pleuritic pain, shortness of breath Cardiovascular: chest pain Musculoskeletal: no complaints Skin: no complaints Neurologic: no complaints Past Medical History CHF peripheral vascular disease Family History Significant Family History: no pertinent family hx Social History Alcohol Use: none Smoking Status: Former smoker Drug Use: none Exam/Review of Systems Vital Signs Vitals Vital Signs Date Time Temp Pulse Resp B/P Pulse Ox O2 Delivery O2 Flow Rate FiO2 02/22/17 13:21 64 20 98 21 02/22/17 11:23 99.6 108/53 02/22/17 05:52 2.0 02/21/17 20:18 Nasal Cannula Intake and Output 02/21/17 02/21/17 02/22/17 14:59 22:59 06:59 Intake Total 200 ml 400 ml Balance 200 ml 400 ml Exam Constitutional: alert, oriented Psych: no complaints Head: atraumatic, normocephalic Eyes: nl conjunctiva ENMT: nl external ears & nose Neck: other ( left neck fullness) Respiratory: clear to auscultation Cardiovascular: regular rate and rhythm Gastrointestinal: soft Musculoskeletal: nl extremities to inspection Results Result Diagram: 02/19/17214602/19/172146 Results 24 hrs Laboratory Tests Test 02/21/17 17:44 02/21/17 21:16 02/22/17 08:41 02/22/17 13:30 Bedside Glucose 150 143 144 136 Medications Medications Current Medications Nadolol (Corgard) 20 mg DAILY PO Last administered on 02/22/17 08:49; Admin Dose 20 MG; Start 02/20/17 at 09:00 Tamsulosin HCl (Flomax) 0.4 mg HS PO Last administered on 02/21/17 21:13; Admin Dose 0.4 MG; Start 02/20/17 at 21:00 Folic Acid (Folic Acid) 1 mg DAILY PO Last administered on 02/22/17 08:46; Admin Dose 1 MG; Start 02/20/17 at 09:00 Aspirin (Aspirin) 81 mg DAILY PO Last administered on 02/22/17 08:46; Admin Dose 81 MG; Start 02/20/17 at 09:00 Clopidogrel Bisulfate (plaVIX) 75 mg DAILY PO Last administered on 02/22/17 08: 46; Admin Dose 75 MG; Start 02/20/17 at 09:00 Salmeterol Xinafoate/ Fluticasone (Advair 250/50 Diskus) 1 inh BID INH Last administered on 02/21/17 21:12; Admin Dose 1 INH; Start 02/20/17 at 09:00 Pantoprazole (Protonix Iv) 40 mg DAILY@06 IV Last administered on 02/22/17 05: 25; Admin Dose 40 MG; Start 02/20/17 at 06:00 Acetaminophen (Tylenol Tab) 650 mg Q6H PRN PO PAIN AND OR ELEVATED TEMP Last administered on 02/21/17 06:36; Admin Dose 650 MG; Start 02/20/17 at 05:30 Morphine Sulfate (morphine) 2 mg Q4H PRN IV SEVERE PAIN LEVEL 7-10 Last administered on 02/22/17 04:23; Admin Dose 2 MG; Start 02/20/17 at 05:30 Furosemide (Lasix) 20 mg DAILY@06 PO Last administered on 02/22/17 05:28; Admin Dose 20 MG; Start 02/20/17 at 06:00 Enoxaparin Sodium (Lovenox) 70 mg DAILY SC Last administered on 02/22/17 09:01 ; Admin Dose 70 MG; Start 02/20/17 at 09:00 Diagnostic Test (Pha) (Accu-Chek) 1 ea 02 XX ; Start 02/21/17 at 02:00 Ferrous Sulfate (Ferrous Sulfate (Ec)) 325 mg DAILY PO Last administered on 02/22 08:47; Admin Dose 325 MG; Start 02/20/17 at 09:00 Miscellaneous Information 1 ea NOTE XX ; Start 02/20/17 at 06:15 Glucose (Glutose) 15 gm Q15M PRN PO DECREASED GLUCOSE; Start 02/20/17 at 06:15 Glucose (Glutose) 22.5 gm Q15M PRN PO DECREASED GLUCOSE; Start 02/20/17 at 06:15 Dextrose (D50w Syringe) 25 ml Q15M PRN IV DECREASED GLUCOSE; Start 02/20/17 at 06:15 Dextrose (D50w Syringe) 50 ml Q15M PRN IV DECREASED GLUCOSE; Start 02/20/17 at 06:15 Glucagon (Glucagen) 1 mg Q15M PRN IM DECREASED GLUCOSE; Start 02/20/17 at 06:15 Glucose (Glutose) 15 gm Q15M PRN BUCCAL DECREASED GLUCOSE; Start 02/20/17 at 06: 15 Isosorbide Dinitrate (Isordil) 10 mg TID PO Last administered on 02/21/17 09:18 ; Admin Dose 10 MG; Start 02/20/17 at 21:00 Meclizine HCl (Antivert) 25 mg BID PRN PO DIZZINESS Last administered on 23:57; Admin Dose 25 MG; Start 02/21/17 at 23:00 Ibuprofen (Motrin) 400 mg TID PRN PO PAIN OR TEMP ABOVE 38C Last administered on 02/22/17 08:58; Admin Dose 400 MG; Start 02/21/17 at 23:00 KRISTINE PONCE M.D. Feb 22, 2017 14:12
[2017-02-22] MEDS: TAMSULOSIN (SR) 0.4 MG CAP PO SCH (20:54)
[2017-02-22] MEDS: MECLIZINE 25 MG TAB PO PRN (20:56)
[2017-02-23] VITALS (13 sets, daily range): BP systolic 101–124; BP diastolic 53–70; PULSE 64–73; RESP 18–21
[2017-02-23] MEDS: IPRATROPIUM (NEB) 0.5 MG/2.5 ML AMP HHN SCH ×6 (00:20→21:14)
[2017-02-23] MEDS: ACCU-CHEK XX SCH (02:00)
[2017-02-23] MEDS: PANTOPRAZOLE (EC) 40 MG TAB PO SCH (05:55)
[2017-02-23] MEDS: FUROSEMIDE 20 MG TAB PO SCH (05:58)
[2017-02-23 07:15] LABS: BASOPHILS % 0.6 % (0.0-2.0); EOSINOPHILS # 0.2 10^3/ul (0.0-0.5); HEMATOCRIT 28.8 % (42.0-52.0); HEMOGLOBIN 9.8 g/dl (14.0-18.0); LYMPHOCYTES # 0.8 10^3/ul (0.8-2.9); LYMPHOCYTES % 12.5 % (15.0-51.0); MEAN CORPUSCULAR HEMOGLOBIN 26.1 pg (29.0-33.0); MEAN CORPUSCULAR VOLUME 76.8 fl (82.0-101.0); MEAN PLATELET VOLUME 10.6 fl (7.4-10.4); MONOCYTE # 0.7 10^3/ul (0.3-0.9); MONOCYTES % 10.5 % (0.0-11.0); NEUTROPHILS % 73.1 % (39.0-77.0); PLATELET COUNT 219 10^3/UL (140-415); RED BLOOD COUNT 3.75 10^6/ul (4.70-6.10); RED CELL DISTRIBUTION WIDTH 15.6 % (11.5-14.5); WHITE BLOOD COUNT 6.4 10^3/ul (4.8-10.8)
[2017-02-23 07:31] LABS: CALCIUM 8.9 mg/dl (8.4-10.2); CREATININE 0.97 mg/dl (0.61-1.24); POTASSIUM 4.8 mmol/L (3.5-5.1)
[2017-02-23] MEDS: INSULIN ASPART [NOVOLOG] 3 ML PEN SC SCH ×4 (07:55→20:55)
[2017-02-23] MEDS: SALMETEROL/FLUTICASONE 250/50 INHA INH SCH ×2 (10:06→20:53)
[2017-02-23] MEDS: NADOLOL 40 MG TAB PO SCH (10:07)
[2017-02-23] MEDS: CLOPIDOGREL 75 MG TAB PO SCH (10:07)
[2017-02-23] MEDS: ASPIRIN 81 MG TAB PO SCH (10:07)
[2017-02-23] MEDS: MECLIZINE 25 MG TAB PO PRN (10:07)
[2017-02-23] MEDS: ISOSORBIDE DINITRATE 10 MG TAB PO SCH ×3 (10:09→20:55)
[2017-02-23] MEDS: ENOXAPARIN 80 MG/0.8 ML SYG SC SCH ×2 (10:10→21:02)
[2017-02-23] MEDS: FOLIC ACID 1 MG TAB PO SCH (10:10)
[2017-02-23] MEDS: FERROUS SULFATE (EC) 325 MG TAB PO SCH (10:10)
--- NOTE | 2017-02-23 11:55 | PN ---
Date/Time of Note Date/Time of Note DATE: 02/23/17 TIME: 11:42 Assessment/Plan VTE Prophylaxis VTE Prophylaxis Intervention: LMWH Lines/Catheters IV [facility] Type (from [facility] Urinary Cath still in place: No Assessment/Plan Chief Complaint/Hosp Course 71 y/o with 1Chest pain with no EKG changes, however, troponins are positive at 1.3 70 and 1.390>0.9 on 02/21. Patient has history of smoking and the patient likely non-ST elevation myocardial infarction (NSTEMI) and need to rule out for cardiac ischemia. 2. Shortness of breath with cough likely secondary to metastatic lung carcinoma (CA). Plan was to get the chemotherapy this next week however differed due to NSTEMI 3. Chronic obstructive pulmonary disease (COPD). 4. Anemia. 5. Hypertension. 6. Hypercholesteremia. 7. Peripheral vascular disease, status post right popliteal angioplasty. Recs - Pt having chest pain 09/29> NTG/Morphine, ordered stat EKG and Troponin - Spoke to cards who will see patient now - c/w ASA/Plavix/Lovenox ( 70 q 12), B camelia - Pt might need Angiogram today, spoke to cards - Will keep NPO till troponin results - GI/DVT prophylaxsis Problems: Subjective 24 Hr Interval Summary Free Text/Dictation Pt having mid chest pain today 09/29 Exam/Review of Systems Vital Signs Vitals Vital Signs Date Time Temp Pulse Resp B/P Pulse Ox O2 Delivery O2 Flow Rate FiO2 02/23/17 08:49 73 16 96 21 02/23/17 07:34 97.8 116/57 02/23/17 04:18 2.0 02/23/17 04:18 Nasal Cannula Intake and Output 02/22/17 02/22/17 02/23/17 15:00 23:00 07:00 Intake Total 350 ml 600 ml Output Total 700 ml Balance 350 ml -100 ml Exam Gen: Awake, alert Neck :supple Lungs:clear abdomen:soft, non tender ext: no edema Results Result Diagram: 02/23/17 0600 02/23/17 0600 Results 24 hrs Laboratory Tests Test 02/22/17 13:30 02/22/17 17:54 02/22/17 20:59 02/23/17 06:00 Bedside Glucose 136 159 127 White Blood Count 6.4 # Red Blood Count 3.75 L Hemoglobin 9.8 L Hematocrit 28.8 L Mean Corpuscular Volume 76.8 L Mean Corpuscular Hemoglobin 26.1 L Mean Corpuscular Hemoglobin Concent 34.0 Red Cell Distribution Width 15.6 H Platelet Count 219 # Mean Platelet Volume 10.6 H Neutrophils % 73.1 Lymphocytes % 12.5 L Monocytes % 10.5 Eosinophils % 3.0 Basophils % 0.6 Nucleated Red Blood Cells % 0.0 Neutrophils # (Manual) 4.7 Lymphocytes # 0.8 Monocytes # 0.7 Eosinophils # 0.2 Basophils # 0.0 Nucleated Red Blood Cells # 0.0 Sodium Level 131 L Potassium Level 4.8 Chloride Level 98 Carbon Dioxide Level 24 Anion Gap 14 Blood Urea Nitrogen 19 Creatinine 0.97 Glucose Level 104 Calcium Level 8.9 Test 02/23/17 08:27 Bedside Glucose 147 Medications Medications Current Medications Nadolol (Corgard) 20 mg DAILY PO Last administered on 02/23/17 10:07; Admin Dose 20 MG; Start 02/20/17 at 09:00 Tamsulosin HCl (Flomax) 0.4 mg HS PO Last administered on 02/22/17 20:54; Admin Dose 0.4 MG; Start 02/20/17 at 21:00 Folic Acid (Folic Acid) 1 mg DAILY PO Last administered on 02/23/17 10:10; Admin Dose 1 MG; Start 02/20/17 at 09:00 Aspirin (Aspirin) 81 mg DAILY PO Last administered on 02/23/17 10:07; Admin Dose 81 MG; Start 02/20/17 at 09:00 Clopidogrel Bisulfate (plaVIX) 75 mg DAILY PO Last administered on 02/23/17 10: 07; Admin Dose 75 MG; Start 02/20/17 at 09:00 Salmeterol Xinafoate/ Fluticasone (Advair 250/50 Diskus) 1 inh BID INH Last administered on 02/23/17 10:06; Admin Dose 1 INH; Start 02/20/17 at 09:00 Acetaminophen (Tylenol Tab) 650 mg Q6H PRN PO PAIN AND OR ELEVATED TEMP Last administered on 02/21/17 06:36; Admin Dose 650 MG; Start 02/20/17 at 05:30 Morphine Sulfate (morphine) 2 mg Q4H PRN IV SEVERE PAIN LEVEL 7-10 Last administered on 02/22/17 04:23; Admin Dose 2 MG; Start 02/20/17 at 05:30 Furosemide (Lasix) 20 mg DAILY@06 PO Last administered on 02/23/17 05:58; Admin Dose 20 MG; Start 02/20/17 at 06:00 Enoxaparin Sodium (Lovenox) 70 mg DAILY SC Last administered on 02/22/17 09:01 ; Admin Dose 70 MG; Start 02/20/17 at 09:00 Diagnostic Test (Pha) (Accu-Chek) 1 ea 02 XX ; Start 02/21/17 at 02:00 Ferrous Sulfate (Ferrous Sulfate (Ec)) 325 mg DAILY PO Last administered on 02/23 10:10; Admin Dose 325 MG; Start 02/20/17 at 09:00 Miscellaneous Information 1 ea NOTE XX ; Start 02/20/17 at 06:15 Glucose (Glutose) 15 gm Q15M PRN PO DECREASED GLUCOSE; Start 02/20/17 at 06:15 Glucose (Glutose) 22.5 gm Q15M PRN PO DECREASED GLUCOSE; Start 02/20/17 at 06:15 Dextrose (D50w Syringe) 25 ml Q15M PRN IV DECREASED GLUCOSE; Start 02/20/17 at 06:15 Dextrose (D50w Syringe) 50 ml Q15M PRN IV DECREASED GLUCOSE; Start 02/20/17 at 06:15 Glucagon (Glucagen) 1 mg Q15M PRN IM DECREASED GLUCOSE; Start 02/20/17 at 06:15 Glucose (Glutose) 15 gm Q15M PRN BUCCAL DECREASED GLUCOSE; Start 02/20/17 at 06: 15 Isosorbide Dinitrate (Isordil) 10 mg TID PO Last administered on 02/23/17 10:09 ; Admin Dose 10 MG; Start 02/20/17 at 21:00 Meclizine HCl (Antivert) 25 mg BID PRN PO DIZZINESS Last administered on 10:07; Admin Dose 25 MG; Start 02/21/17 at 23:00 Pantoprazole (Protonix Tab) 40 mg DAILY@06 PO Last administered on 02/23/17 05: 55; Admin Dose 40 MG; Start 02/23/17 at 06:00 Nitroglycerin (Nitroglycerin (Sl Tab) 0.4 Mg) 1 tab Q5M PRN SL ANGINA; Start at 11:00 KLARISSA WHITTAKER MD Feb 23, 2017 11:54
[2017-02-23] MEDS ORDERED: ENOXAPARIN 80 MG/0.8 ML SYG SC ONE (12:30)
[2017-02-23 13:45] LABS: INR 1.09; PROTIME 14.1 Sec (12.2-14.2); PT RATIO 1.1
[2017-02-23] MEDS ORDERED: POLYETHYLENE GLYCOL 3350 119 GM POWDER PO ONE (20:30)
[2017-02-23] MEDS ORDERED: NA PHOSPHATE/BIPHOS 133 ML ENEMA PR PRN (20:30)
[2017-02-23] MEDS: TAMSULOSIN (SR) 0.4 MG CAP PO SCH (20:54)
[2017-02-23] MEDS: LEVALBUTEROL (NEB) 1.25 MG/0.5 ML AMP HHN PRN (21:14)
[2017-02-24] VITALS (12 sets, daily range): BP systolic 98–117; BP diastolic 51–59; PULSE 63–71; RESP 18–20
[2017-02-24] MEDS: LEVALBUTEROL (NEB) 1.25 MG/0.5 ML AMP HHN PRN ×4 (01:55→20:04)
[2017-02-24] MEDS: IPRATROPIUM (NEB) 0.5 MG/2.5 ML AMP HHN SCH ×6 (01:55→20:04)
[2017-02-24] MEDS: ACCU-CHEK XX SCH (02:00)
[2017-02-24] MEDS: PANTOPRAZOLE (EC) 40 MG TAB PO SCH (06:24)
[2017-02-24] MEDS: FUROSEMIDE 20 MG TAB PO SCH (06:26)
[2017-02-24 07:15] LABS: BASOPHILS % 0.4 % (0.0-2.0); EOSINOPHILS # 0.2 10^3/ul (0.0-0.5); EOSINOPHILS % 2.8 % (0.0-7.0); HEMATOCRIT 28.1 % (42.0-52.0); HEMOGLOBIN 9.5 g/dl (14.0-18.0); LYMPHOCYTES # 1.1 10^3/ul (0.8-2.9); LYMPHOCYTES % 14.3 % (15.0-51.0); MEAN CORPUSCULAR HEMOGLOBIN 25.8 pg (29.0-33.0); MEAN CORPUSCULAR HGB CONC 33.8 g/dl (32.0-37.0); MEAN CORPUSCULAR VOLUME 76.4 fl (82.0-101.0); MEAN PLATELET VOLUME 10.1 fl (7.4-10.4); MONOCYTE # 0.8 10^3/ul (0.3-0.9); MONOCYTES % 9.7 % (0.0-11.0); NEUTROPHILS % 72.4 % (39.0-77.0); PLATELET COUNT 220 10^3/UL (140-415); RED BLOOD COUNT 3.68 10^6/ul (4.70-6.10); RED CELL DISTRIBUTION WIDTH 15.2 % (11.5-14.5); WHITE BLOOD COUNT 7.9 10^3/ul (4.8-10.8)
[2017-02-24] MEDS: ISOSORBIDE DINITRATE 10 MG TAB PO SCH ×3 (09:00→20:40)
[2017-02-24] MEDS: NADOLOL 40 MG TAB PO SCH (09:00)
[2017-02-24] MEDS: INSULIN ASPART [NOVOLOG] 3 ML PEN SC SCH ×4 (09:17→20:41)
[2017-02-24] MEDS: FOLIC ACID 1 MG TAB PO SCH (09:18)
[2017-02-24] MEDS: FERROUS SULFATE (EC) 325 MG TAB PO SCH (09:18)
[2017-02-24] MEDS: ASPIRIN 81 MG TAB PO SCH (09:18)
[2017-02-24] MEDS: SALMETEROL/FLUTICASONE 250/50 INHA INH SCH ×2 (09:19→20:40)
--- NOTE | 2017-02-24 11:09 | CONS ---
Date/Time of Note Date/Time of Note DATE: 02/24/17 TIME: 11:07 Assessment/Plan Assessment/Plan Chief Complaint/Hosp Course 71 yo male with # Right upper lung mass consistent with poorly differentiated adenocarcinoma - EGFR neg/ ALKneg/PDL-1 30% -pt has mediastinal and right supraclavicular lymphadenopathy. Additional smaller bilateral pulmonary nodules are seen. Thus patient has stage IV disease -although pt is scheduled to start chemotherapy in our office this Thursday, will need to complete the present cardiac workup prior to initiating chemotherapy -if cardiac cath not necessary can discharge patient to receive chemotherapy as an out patient # NSTEMI - troponins have decreased -appreciate cardiology recommendations -f/u 2dECHO -cont B camelia, ASA, Plavix and Lovenox BID -per cardiology, will consider left heart catheterization and possible need for PTCA and stent placement Problems: Consultation Date/Type/Reason Admit Date/Time Feb 20, 2017 at 01:46 Initial Consult Date 02/22/17 Type of Consultation: Oncolology Reason for Consultation lung ca Referring Provider: NEDA VALVERDE MD 24 HR Interval Summary Free Text/Dictation pt state chest pain has resolved Exam/Review of Systems Vital Signs Vitals Vital Signs Date Time Temp Pulse Resp B/P Pulse Ox O2 Delivery O2 Flow Rate FiO2 02/24/17 08:17 69 20 94 21 02/24/17 07:50 Nasal Cannula 2.0 02/24/17 07:15 98.2 98/54 Intake and Output 02/23/17 02/23/17 02/24/17 14:59 22:59 06:59 Intake Total 800 ml 480 ml Output Total 500 ml Balance 800 ml -20 ml Exam Constitutional: alert Psych: nl mood/affect, no complaints Head: normocephalic Eyes: nl conjunctiva ENMT: nl external ears & nose Neck: non-tender, supple Respiratory: clear to auscultation, normal air movement Cardiovascular: regular rate and rhythm Gastrointestinal: soft Musculoskeletal: nl extremities to inspection Results Result Diagram: 02/24/17 0618 02/23/17 0600 Results 24 hrs Laboratory Tests Test 02/23/17 12:59 02/23/17 13:00 02/23/17 18:06 02/23/17 20:53 Bedside Glucose 146 154 139 Prothrombin Time 14.1 Prothrombin Time Ratio 1.1 INR International Normalized Ratio 1.09 Troponin I 0.738 *H Test 02/24/17 06:18 02/24/17 09:17 White Blood Count 7.9 # Red Blood Count 3.68 L Hemoglobin 9.5 L Hematocrit 28.1 L Mean Corpuscular Volume 76.4 L Mean Corpuscular Hemoglobin 25.8 L Mean Corpuscular Hemoglobin Concent 33.8 Red Cell Distribution Width 15.2 H Platelet Count 220 Mean Platelet Volume 10.1 Neutrophils % 72.4 Lymphocytes % 14.3 L Monocytes % 9.7 Eosinophils % 2.8 Basophils % 0.4 Nucleated Red Blood Cells % 0.0 Neutrophils # (Manual) 5.7 Lymphocytes # 1.1 Monocytes # 0.8 Eosinophils # 0.2 Basophils # 0.0 Nucleated Red Blood Cells # 0.0 Troponin I 0.819 *H Bedside Glucose 122 Medications Medications Current Medications Nadolol (Corgard) 20 mg DAILY PO Last administered on 02/23/17 10:07; Admin Dose 20 MG; Start 02/20/17 at 09:00 Tamsulosin HCl (Flomax) 0.4 mg HS PO Last administered on 02/23/17 20:54; Admin Dose 0.4 MG; Start 02/20/17 at 21:00 Folic Acid (Folic Acid) 1 mg DAILY PO Last administered on 02/24/17 09:18; Admin Dose 1 MG; Start 02/20/17 at 09:00 Aspirin (Aspirin) 81 mg DAILY PO Last administered on 02/24/17 09:18; Admin Dose 81 MG; Start 02/20/17 at 09:00 Clopidogrel Bisulfate (plaVIX) 75 mg DAILY PO Last administered on 02/23/17 10: 07; Admin Dose 75 MG; Start 02/20/17 at 09:00 Salmeterol Xinafoate/ Fluticasone (Advair 250/50 Diskus) 1 inh BID INH Last administered on 02/24/17 09:19; Admin Dose 1 INH; Start 02/20/17 at 09:00 Acetaminophen (Tylenol Tab) 650 mg Q6H PRN PO PAIN AND OR ELEVATED TEMP Last administered on 02/21/17 06:36; Admin Dose 650 MG; Start 02/20/17 at 05:30 Morphine Sulfate (morphine) 2 mg Q4H PRN IV SEVERE PAIN LEVEL 7-10 Last administered on 02/22/17 04:23; Admin Dose 2 MG; Start 02/20/17 at 05:30 Furosemide (Lasix) 20 mg DAILY@06 PO Last administered on 02/24/17 06:26; Admin Dose 20 MG; Start 02/20/17 at 06:00 Diagnostic Test (Pha) (Accu-Chek) 1 ea 02 XX ; Start 02/21/17 at 02:00 Ferrous Sulfate (Ferrous Sulfate (Ec)) 325 mg DAILY PO Last administered on 02/24 09:18; Admin Dose 325 MG; Start 02/20/17 at 09:00 Miscellaneous Information 1 ea NOTE XX ; Start 02/20/17 at 06:15 Glucose (Glutose) 15 gm Q15M PRN PO DECREASED GLUCOSE; Start 02/20/17 at 06:15 Glucose (Glutose) 22.5 gm Q15M PRN PO DECREASED GLUCOSE; Start 02/20/17 at 06:15 Dextrose (D50w Syringe) 25 ml Q15M PRN IV DECREASED GLUCOSE; Start 02/20/17 at 06:15 Dextrose (D50w Syringe) 50 ml Q15M PRN IV DECREASED GLUCOSE; Start 02/20/17 at 06:15 Glucagon (Glucagen) 1 mg Q15M PRN IM DECREASED GLUCOSE; Start 02/20/17 at 06:15 Glucose (Glutose) 15 gm Q15M PRN BUCCAL DECREASED GLUCOSE; Start 02/20/17 at 06: 15 Isosorbide Dinitrate (Isordil) 10 mg TID PO Last administered on 02/23/17 20:55 ; Admin Dose 10 MG; Start 02/20/17 at 21:00 Meclizine HCl (Antivert) 25 mg BID PRN PO DIZZINESS Last administered on 10:07; Admin Dose 25 MG; Start 02/21/17 at 23:00 Pantoprazole (Protonix Tab) 40 mg DAILY@06 PO Last administered on 02/24/17 06: 24; Admin Dose 40 MG; Start 02/23/17 at 06:00 Nitroglycerin (Nitroglycerin (Sl Tab) 0.4 Mg) 1 tab Q5M PRN SL ANGINA; Start at 11:00 Enoxaparin Sodium (Lovenox) 70 mg Q12 SC Last administered on 9/4/17at 21:02; Admin Dose 70 MG; Start 02/23/17 at 21:00 Sodium Biphosphate/ Sodium Phosphate (Fleet Enema) 133 ml DAILY PRN [place] CONSTIPATION; Start 02/23/17 at 20:30 KRISTINE PONCE M.D. Feb 24, 2017 11:09
--- NOTE | 2017-02-24 11:59 | PN ---
Date/Time of Note Date/Time of Note DATE: 02/24/17 TIME: 11:38 Assessment/Plan VTE Prophylaxis VTE Prophylaxis Intervention: heparin Lines/Catheters IV C[facility] Type (from [facility] Saline Lock Urinary Cath still in place: No Assessment/Plan Chief Complaint/Hosp Course Patient admitted with recurrent chest pain and positive cardiac biomarkers ( troponin). 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 Recurrent chest pain associated with small, positive troponin. 2. 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 3. History of tobacco use. 4. Anxiety 5. Weakness, dyspnea. PLAN/RECOMMENDATIONS: I had a long talk with patient and family. Daughter interpreted from Somali to indonesian. The patient may well have significant CAD and possible a small NSTEMI or unstable angina. I recommend a coronary arteriogram to clarify the diagnosis. If patient requires coronary intervention careful consideration of the cancer diagnosis of treatment required. Anabela Mondragon MD Subjective 24 Hr Interval Summary Constitutional: improved, no complaints Eyes: no complaints ENT: no complaints Respiratory: no complaints Cardiovascular: chest pain Gastrointestinal: no complaints Genitourinary: no complaints Musculoskeletal: no complaints Skin: no complaints Neurologic: no complaints Psychological: anxiety (anxious) Exam/Review of Systems Vital Signs Vitals Vital Signs Date Time Temp Pulse Resp B/P Pulse Ox O2 Delivery O2 Flow Rate FiO2 02/24/17 11:07 97.9 78 20 105/51 95 02/24/17 08:17 21 02/24/17 07:50 Nasal Cannula 2.0 Intake and Output 02/23/17 02/23/17 02/24/17 15:00 23:00 07:00 Intake Total 800 ml 480 ml Output Total 500 ml Balance 800 ml -20 ml Exam Constitutional: alert, oriented, well developed Head: atraumatic, normocephalic Eyes: EOMI Neck: supple Respiratory: clear to auscultation Cardiovascular: regular rate and rhythm Gastrointestinal: soft Neurological: VERTICA ARCHITECT II-XII intact Skin: nl turgor Results Result Diagram: 02/24/17 0618 02/23/17 0600 Results 24 hrs Laboratory Tests Test 02/23/17 12:59 9/4/17 13:00 02/23/17 18:06 02/23/17 20:53 Bedside Glucose 146 154 139 Prothrombin Time 14.1 Prothrombin Time Ratio 1.1 INR International Normalized Ratio 1.09 Troponin I 0.738 *H Test 02/24/17 06:18 02/24/17 09:17 White Blood Count 7.9 # Red Blood Count 3.68 L Hemoglobin 9.5 L Hematocrit 28.1 L Mean Corpuscular Volume 76.4 L Mean Corpuscular Hemoglobin 25.8 L Mean Corpuscular Hemoglobin Concent 33.8 Red Cell Distribution Width 15.2 H Platelet Count 220 Mean Platelet Volume 10.1 Neutrophils % 72.4 Lymphocytes % 14.3 L Monocytes % 9.7 Eosinophils % 2.8 Basophils % 0.4 Nucleated Red Blood Cells % 0.0 Neutrophils # (Manual) 5.7 Lymphocytes # 1.1 Monocytes # 0.8 Eosinophils # 0.2 Basophils # 0.0 Nucleated Red Blood Cells # 0.0 Troponin I 0.819 *H Bedside Glucose 122 Medications Medications Current Medications Nadolol (Corgard) 20 mg DAILY PO Last administered on 02/23/17 10:07; Admin Dose 20 MG; Start 02/20/17 at 09:00 Tamsulosin HCl (Flomax) 0.4 mg HS PO Last administered on 02/23/17 20:54; Admin Dose 0.4 MG; Start 02/20/17 at 21:00 Folic Acid (Folic Acid) 1 mg DAILY PO Last administered on 02/24/17 09:18; Admin Dose 1 MG; Start 02/20/17 at 09:00 Aspirin (Aspirin) 81 mg DAILY PO Last administered on 02/24/17 09:18; Admin Dose 81 MG; Start 02/20/17 at 09:00 Clopidogrel Bisulfate (plaVIX) 75 mg DAILY PO Last administered on 02/23/17 10: 07; Admin Dose 75 MG; Start 02/20/17 at 09:00 Salmeterol Xinafoate/ Fluticasone (Advair 250/50 Diskus) 1 inh BID INH Last administered on 02/24/17 09:19; Admin Dose 1 INH; Start 02/20/17 at 09:00 Acetaminophen (Tylenol Tab) 650 mg Q6H PRN PO PAIN AND OR ELEVATED TEMP Last administered on 02/21/17 06:36; Admin Dose 650 MG; Start 02/20/17 at 05:30 Morphine Sulfate (morphine) 2 mg Q4H PRN IV SEVERE PAIN LEVEL 7-10 Last administered on 02/22/17 04:23; Admin Dose 2 MG; Start 02/20/17 at 05:30 Furosemide (Lasix) 20 mg DAILY@06 PO Last administered on 02/24/17 06:26; Admin Dose 20 MG; Start 02/20/17 at 06:00 Diagnostic Test (Pha) (Accu-Chek) 1 ea 02 XX ; Start 02/21/17 at 02:00 Ferrous Sulfate (Ferrous Sulfate (Ec)) 325 mg DAILY PO Last administered on 02/24 09:18; Admin Dose 325 MG; Start 02/20/17 at 09:00 Miscellaneous Information 1 ea NOTE XX ; Start 02/20/17 at 06:15 Glucose (Glutose) 15 gm Q15M PRN PO DECREASED GLUCOSE; Start 02/20/17 at 06:15 Glucose (Glutose) 22.5 gm Q15M PRN PO DECREASED GLUCOSE; Start 02/20/17 at 06:15 Dextrose (D50w Syringe) 25 ml Q15M PRN IV DECREASED GLUCOSE; Start 02/20/17 at 06:15 Dextrose (D50w Syringe) 50 ml Q15M PRN IV DECREASED GLUCOSE; Start 02/20/17 at 06:15 Glucagon (Glucagen) 1 mg Q15M PRN IM DECREASED GLUCOSE; Start 02/20/17 at 06:15 Glucose (Glutose) 15 gm Q15M PRN BUCCAL DECREASED GLUCOSE; Start 02/20/17 at 06: 15 Isosorbide Dinitrate (Isordil) 10 mg TID PO Last administered on 02/23/17 20:55 ; Admin Dose 10 MG; Start 02/20/17 at 21:00 Meclizine HCl (Antivert) 25 mg BID PRN PO DIZZINESS Last administered on 10:07; Admin Dose 25 MG; Start 02/21/17 at 23:00 Pantoprazole (Protonix Tab) 40 mg DAILY@06 PO Last administered on 02/24/17 06: 24; Admin Dose 40 MG; Start 02/23/17 at 06:00 Nitroglycerin (Nitroglycerin (Sl Tab) 0.4 Mg) 1 tab Q5M PRN SL ANGINA; Start at 11:00 Enoxaparin Sodium (Lovenox) 70 mg Q12 SC Last administered on 02/23/17t 21:02; Admin Dose 70 MG; Start 02/23/17 at 21:00 Sodium Biphosphate/ Sodium Phosphate (Fleet Enema) 133 ml DAILY PRN [place] CONSTIPATION; Start 02/23/17 at 20:30 ANABELA MONDRAGON MD Feb 24, 2017 11:58
[2017-02-24] MEDS: CLOPIDOGREL 75 MG TAB PO SCH (12:46)
[2017-02-24] MEDS ORDERED: DIAZEPAM 5 MG TAB PO ONE (14:00)
[2017-02-24] MEDS ORDERED: DIPHENHYDRAMINE 50 MG CAP PO ONE (14:00)
[2017-02-24] MEDS: NITROGLYCERIN (SL) 0.4 MG TAB SL PRN ×2 (14:26→14:53)
[2017-02-24] MEDS: ENOXAPARIN 80 MG/0.8 ML SYG SC SCH ×2 (14:33→22:27)
--- NOTE | 2017-02-24 19:19 | PN ---
Date/Time of Note Date/Time of Note DATE: 02/24/17 TIME: 19:17 Assessment/Plan VTE Prophylaxis VTE Prophylaxis Intervention: other Lines/Catheters IV Catheter Type (from [facility]): Sal[facility] Lock Urinary Cath still in place: No Assessment/Plan Chief Complaint/Hosp Course 1Chest pain the patient likely non-ST elevation myocardial infarction (NSTEMI) and need to rule out for cardiac ischemia. 2. Shortness of breath with cough likely secondary to metastatic lung carcinoma (CA). 3. Chronic obstructive pulmonary disease (COPD). 4. Anemia. 5. Hypertension. 6. Hypercholesteremia. 7. Peripheral vascular disease, status post right popliteal angioplasty. PLAN cath soon Problems: Subjective 24 Hr Interval Summary Respiratory: no complaints Cardiovascular: chest pain (+) Gastrointestinal: no complaints Exam/Review of Systems Vital Signs Vitals Vital Signs Date Time Temp Pulse Resp B/P Pulse Ox O2 Delivery O2 Flow Rate FiO2 02/24/17 17:20 73 16 96 21 02/24/17 15:29 97.9 110/55 02/24/17 07:50 Nasal Cannula 2.0 Intake and Output 02/23/17 02/23/17 02/24/17 15:00 23:00 07:00 Intake Total 800 ml 480 ml Output Total 500 ml Balance 800 ml -20 ml Exam Neck: supple Respiratory: clear to auscultation Cardiovascular: regular rate and rhythm Gastrointestinal: soft Musculoskeletal: nl extremities to inspection Extremities: normal pulses Results Result Diagram: 02/24/17 0618 02/23/17 0600 Results 24 hrs Laboratory Tests Test 02/23/17 20:53 02/24/17 06:18 02/24/17 09:17 02/24/17 12:43 Bedside Glucose 139 122 123 White Blood Count 7.9 # Red Blood Count 3.68 L Hemoglobin 9.5 L Hematocrit 28.1 L Mean Corpuscular Volume 76.4 L Mean Corpuscular Hemoglobin 25.8 L Mean Corpuscular Hemoglobin Concent 33.8 Red Cell Distribution Width 15.2 H Platelet Count 220 Mean Platelet Volume 10.1 Neutrophils % 72.4 Lymphocytes % 14.3 L Monocytes % 9.7 Eosinophils % 2.8 Basophils % 0.4 Nucleated Red Blood Cells % 0.0 Neutrophils # (Manual) 5.7 Lymphocytes # 1.1 Monocytes # 0.8 Eosinophils # 0.2 Basophils # 0.0 Nucleated Red Blood Cells # 0.0 Troponin I 0.819 *H Test 02/24/17 17:43 02/24/17 17:44 Bedside Glucose 252 H 309 H Medications Medications Current Medications Nadolol (Corgard) 20 mg DAILY PO Last administered on 02/23/17 10:07; Admin Dose 20 MG; Start 02/20/17 at 09:00 Tamsulosin HCl (Flomax) 0.4 mg HS PO Last administered on 02/23/17 20:54; Admin Dose 0.4 MG; Start 02/20/17 at 21:00 Folic Acid (Folic Acid) 1 mg DAILY PO Last administered on 02/24/17 09:18; Admin Dose 1 MG; Start 02/20/17 at 09:00 Aspirin (Aspirin) 81 mg DAILY PO Last administered on 02/24/17 09:18; Admin Dose 81 MG; Start 02/20/17 at 09:00 Clopidogrel Bisulfate (plaVIX) 75 mg DAILY PO Last administered on 02/24/17 12: 46; Admin Dose 75 MG; Start 02/20/17 at 09:00 Salmeterol Xinafoate/ Fluticasone (Advair 250/50 Diskus) 1 inh BID INH Last administered on 02/24/17 09:19; Admin Dose 1 INH; Start 02/20/17 at 09:00 Acetaminophen (Tylenol Tab) 650 mg Q6H PRN PO PAIN AND OR ELEVATED TEMP Last administered on 02/21/17 06:36; Admin Dose 650 MG; Start 02/20/17 at 05:30 Morphine Sulfate (morphine) 2 mg Q4H PRN IV SEVERE PAIN LEVEL 7-10 Last administered on 02/22/17 04:23; Admin Dose 2 MG; Start 02/20/17 at 05:30 Furosemide (Lasix) 20 mg DAILY@06 PO Last administered on 02/24/17 06:26; Admin Dose 20 MG; Start 02/20/17 at 06:00 Diagnostic Test (Pha) (Accu-Chek) 1 ea 02 XX ; Start 02/21/17 at 02:00 Ferrous Sulfate (Ferrous Sulfate (Ec)) 325 mg DAILY PO Last administered on 02/24 09:18; Admin Dose 325 MG; Start 02/20/17 at 09:00 Miscellaneous Information 1 ea NOTE XX ; Start 02/20/17 at 06:15 Glucose (Glutose) 15 gm Q15M PRN PO DECREASED GLUCOSE; Start 02/20/17 at 06:15 Glucose (Glutose) 22.5 gm Q15M PRN PO DECREASED GLUCOSE; Start 02/20/17 at 06:15 Dextrose (D50w Syringe) 25 ml Q15M PRN IV DECREASED GLUCOSE; Start 02/20/17 at 06:15 Dextrose (D50w Syringe) 50 ml Q15M PRN IV DECREASED GLUCOSE; Start 02/20/17 at 06:15 Glucagon (Glucagen) 1 mg Q15M PRN IM DECREASED GLUCOSE; Start 02/20/17 at 06:15 Glucose (Glutose) 15 gm Q15M PRN BUCCAL DECREASED GLUCOSE; Start 02/20/17 at 06: 15 Isosorbide Dinitrate (Isordil) 10 mg TID PO Last administered on 02/23/17 20:55 ; Admin Dose 10 MG; Start 02/20/17 at 21:00 Meclizine HCl (Antivert) 25 mg BID PRN PO DIZZINESS Last administered on 10:07; Admin Dose 25 MG; Start 02/21/17 at 23:00 Pantoprazole (Protonix Tab) 40 mg DAILY@06 PO Last administered on 02/24/17 06: 24; Admin Dose 40 MG; Start 02/23/17 at 06:00 Nitroglycerin (Nitroglycerin (Sl Tab) 0.4 Mg) 1 tab Q5M PRN SL ANGINA Last administered on 02/24/17 14:53; Admin Dose 1 TAB; Start 02/23/17 at 11:00 Enoxaparin Sodium (Lovenox) 70 mg Q12 SC Last administered on 02/24/17 14:33; Admin Dose 70 MG; Start 02/23/17 at 21:00 Sodium Biphosphate/ Sodium Phosphate (Fleet Enema) 133 ml DAILY PRN [place] CONSTIPATION; Start 02/23/17 at 20:30 NEDA VALVERDE MD Feb 24, 2017 19:19
[2017-02-24] MEDS: TAMSULOSIN (SR) 0.4 MG CAP PO SCH (20:40)
[2017-02-25] VITALS (43 sets, daily range): BP systolic 89–128; BP diastolic 41–72; PULSE 58–84; RESP 17–27
[2017-02-25] MEDS: LEVALBUTEROL (NEB) 1.25 MG/0.5 ML AMP HHN PRN ×3 (00:08→21:12)
[2017-02-25] MEDS: IPRATROPIUM (NEB) 0.5 MG/2.5 ML AMP HHN SCH ×6 (00:08→21:11)
[2017-02-25] MEDS: ACCU-CHEK XX SCH (02:00)
[2017-02-25] MEDS: PANTOPRAZOLE (EC) 40 MG TAB PO SCH (05:56)
[2017-02-25] MEDS: FUROSEMIDE 20 MG TAB PO SCH (05:56)
--- NOTE | 2017-02-25 07:13 | RADRPT ---
PROCEDURE: XR Chest. CLINICAL INDICATION: Congestive heart failure . Metastatic lung cancer. TECHNIQUE: Frontal and Lateral views of the chest were obtained. COMPARISON: CT from 02/20/2017 FINDINGS: The heart size remains within normal limits. Widened superior mediastinum from known underlying jose opathy is seen. Aortic atherosclerotic change. Mild interstitial prominence of the lungs. Multiple p ulmonary nodules are seen, better demonstrated on recent CT. Slight bibasilar atelectasis. No large effusion. No overt congestive heart failure. Degenerative change of the spine is seen. Clips overli e the right supraclavicular region. No definite acute fracture. IMPRESSION: Mediastinal adenopathy and pulmonary nodules. No overt congestive heart failure. RPTAT: [facility] Physician Tea Date Time Electronically viewed and signed by Jessica Chavis Physician on 02/25/2017 07:13 LE/
[2017-02-25] MEDS: INSULIN ASPART [NOVOLOG] 3 ML PEN SC SCH ×4 (07:46→21:00)
[2017-02-25] MEDS: ENOXAPARIN 80 MG/0.8 ML SYG SC SCH ×2 (07:46→21:00)
[2017-02-25] MEDS: FOLIC ACID 1 MG TAB PO SCH (08:12)
[2017-02-25] MEDS: ASPIRIN 81 MG TAB PO SCH (08:12)
[2017-02-25] MEDS: FERROUS SULFATE (EC) 325 MG TAB PO SCH (08:12)
[2017-02-25] MEDS: CLOPIDOGREL 75 MG TAB PO SCH (08:12)
[2017-02-25] MEDS: SALMETEROL/FLUTICASONE 250/50 INHA INH SCH ×2 (08:12→21:58)
[2017-02-25] MEDS: ISOSORBIDE DINITRATE 10 MG TAB PO SCH ×3 (08:12→21:00)
[2017-02-25] MEDS: NADOLOL 40 MG TAB PO SCH (08:13)
[2017-02-25 08:24] LABS: BASOPHILS % 0.4 % (0.0-2.0); EOSINOPHILS # 0.2 10^3/ul (0.0-0.5); EOSINOPHILS % 2.1 % (0.0-7.0); HEMATOCRIT 29.7 % (42.0-52.0); HEMOGLOBIN 10.1 g/dl (14.0-18.0); LYMPHOCYTES # 0.9 10^3/ul (0.8-2.9); LYMPHOCYTES % 11.8 % (15.0-51.0); MEAN CORPUSCULAR VOLUME 76.5 fl (82.0-101.0); MEAN PLATELET VOLUME 9.9 fl (7.4-10.4); MONOCYTE # 0.8 10^3/ul (0.3-0.9); MONOCYTES % 9.9 % (0.0-11.0); NEUTROPHILS % 75.2 % (39.0-77.0); PLATELET COUNT 262 10^3/UL (140-415); RED BLOOD COUNT 3.88 10^6/ul (4.70-6.10); RED CELL DISTRIBUTION WIDTH 15.4 % (11.5-14.5); WHITE BLOOD COUNT 7.8 10^3/ul (4.8-10.8)
[2017-02-25 08:53] LABS: INR 1.03; PROTIME 13.5 Sec (12.2-14.2); PT RATIO 1.1
[2017-02-25 08:59] LABS: CALCIUM 9.2 mg/dl (8.4-10.2); CREATININE 0.97 mg/dl (0.61-1.24); POTASSIUM 4.6 mmol/L (3.5-5.1)
--- NOTE | 2017-02-25 09:58 | CONS ---
Date/Time of Note Date/Time of Note DATE: 02/25/17 TIME: 09:54 Assessment/Plan Assessment/Plan Chief Complaint/Hosp Course IMPRESSION: 1. Positive troponin concerning for non-ST elevation myocardial infarction with down trending cardiac enzymes.-EF 50% by echo 2. Hypertension under good control. 3. Electrocardiogram. 4. Dyslipidemia with low HDL. 5. Recent diagnosis of lung carcinoma. 6. Chronic obstructive pulmonary disease. 7. Prior extensive tobacco intake. 8. Anemia. REcc: -Tele -serial ecg's -Continue asa/plavix -Continue nadolol -LHC with possible PTCA/stent today Problems: Consultation Date/Type/Reason Admit Date/Time Feb 20, 2017 at 01:46 Initial Consult Date 02/22/17 Type of Consultation: cardiology Reason for Consultation nstemi Referring Provider: NEDA VALVERDE MD Exam/Review of Systems Vital Signs Vitals Vital Signs Date Time Temp Pulse Resp B/P Pulse Ox O2 Delivery O2 Flow Rate FiO2 02/25/17 08:05 Nasal Cannula 2.0 02/25/17 08:00 84 02/25/17 07:16 98.1 18 126/61 94 02/25/17 05:32 21 Intake and Output 02/24/17 02/24/17 02/25/17 15:00 23:00 07:00 Intake Total 960 ml 500 ml Output Total 600 ml Balance 960 ml -100 ml Exam Review of Systems: CONSTITUTIONAL: No fevers, chills. PULMONARY: No sob CARDIOVASCULAR: No chest pain/palpitations GASTROINTESTINAL: No nausea/vomiting. GENITOURINARY: No hematuria/dysuria. MUSCULOSKELETAL: No myagias/arthalgias. PSYCHIATRIC: The patient denies depression. NEUROLOGIC: No weakness Constitutional: alert Psych: no complaints Head: normocephalic ENMT: mucosa pink and moist Neck: jvd (8 cm water), supple Respiratory: diminished breath sounds (at bases/B) Cardiovascular: regular rate and rhythm Gastrointestinal: non-tender, soft Musculoskeletal: muscle tone (normal) Extremities: edema (none) Neurological: other (No focal deficits) Results Result Diagram: 02/25/17 0731 02/25/17 0731 Results 24 hrs Laboratory Tests Test 02/24/17 12:43 02/24/17 17:43 02/24/17 17:44 02/24/17 20:36 Bedside Glucose 123 252 H 309 H 116 Test 02/25/17 07:31 02/25/17 07:44 White Blood Count 7.8 Red Blood Count 3.88 L Hemoglobin 10.1 L Hematocrit 29.7 L Mean Corpuscular Volume 76.5 L Mean Corpuscular Hemoglobin 26.0 L Mean Corpuscular Hemoglobin Concent 34.0 Red Cell Distribution Width 15.4 H Platelet Count 262 Mean Platelet Volume 9.9 Neutrophils % 75.2 Lymphocytes % 11.8 L Monocytes % 9.9 Eosinophils % 2.1 Basophils % 0.4 Nucleated Red Blood Cells % 0.0 Neutrophils # (Manual) 5.9 Lymphocytes # 0.9 Monocytes # 0.8 Eosinophils # 0.2 Basophils # 0.0 Nucleated Red Blood Cells # 0.0 Prothrombin Time 13.5 Prothrombin Time Ratio 1.1 INR International Normalized Ratio 1.03 Sodium Level 126 L Potassium Level 4.6 Chloride Level 94 L Carbon Dioxide Level 25 Anion Gap 12 Blood Urea Nitrogen 16 Creatinine 0.97 Glucose Level 116 Calcium Level 9.2 Bedside Glucose 146 Medications Medications Current Medications Nadolol (Corgard) 20 mg DAILY PO Last administered on 02/25/17 08:13; Admin Dose 20 MG; Start 02/20/17 at 09:00 Tamsulosin HCl (Flomax) 0.4 mg HS PO Last administered on 02/24/17 20:40; Admin Dose 0.4 MG; Start 02/20/17 at 21:00 Folic Acid (Folic Acid) 1 mg DAILY PO Last administered on 02/25/17 08:12; Admin Dose 1 MG; Start 02/20/17 at 09:00 Aspirin (Aspirin) 81 mg DAILY PO Last administered on 02/25/17 08:12; Admin Dose 81 MG; Start 02/20/17 at 09:00 Clopidogrel Bisulfate (plaVIX) 75 mg DAILY PO Last administered on 02/25/17 08: 12; Admin Dose 75 MG; Start 02/20/17 at 09:00 Salmeterol Xinafoate/ Fluticasone (Advair 250/50 Diskus) 1 inh BID INH Last administered on 02/25/17 08:12; Admin Dose 1 INH; Start 02/20/17 at 09:00 Acetaminophen (Tylenol Tab) 650 mg Q6H PRN PO PAIN AND OR ELEVATED TEMP Last administered on 02/21/17 06:36; Admin Dose 650 MG; Start 02/20/17 at 05:30 Morphine Sulfate (morphine) 2 mg Q4H PRN IV SEVERE PAIN LEVEL 7-10 Last administered on 02/22/17 04:23; Admin Dose 2 MG; Start 02/20/17 at 05:30 Furosemide (Lasix) 20 mg DAILY@06 PO Last administered on 02/25/17 05:56; Admin Dose 20 MG; Start 02/20/17 at 06:00 Diagnostic Test (Pha) (Accu-Chek) 1 ea 02 XX ; Start 02/21/17 at 02:00 Ferrous Sulfate (Ferrous Sulfate (Ec)) 325 mg DAILY PO Last administered on 02/25 08:12; Admin Dose 325 MG; Start 02/20/17 at 09:00 Miscellaneous Information 1 ea NOTE XX ; Start 02/20/17 at 06:15 Glucose (Glutose) 15 gm Q15M PRN PO DECREASED GLUCOSE; Start 02/20/17 at 06:15 Glucose (Glutose) 22.5 gm Q15M PRN PO DECREASED GLUCOSE; Start 02/20/17 at 06:15 Dextrose (D50w Syringe) 25 ml Q15M PRN IV DECREASED GLUCOSE; Start 02/20/17 at 06:15 Dextrose (D50w Syringe) 50 ml Q15M PRN IV DECREASED GLUCOSE; Start 02/20/17 at 06:15 Glucagon (Glucagen) 1 mg Q15M PRN IM DECREASED GLUCOSE; Start 02/20/17 at 06:15 Glucose (Glutose) 15 gm Q15M PRN BUCCAL DECREASED GLUCOSE; Start 02/20/17 at 06: 15 Isosorbide Dinitrate (Isordil) 10 mg TID PO Last administered on 02/25/17 08:12 ; Admin Dose 10 MG; Start 02/20/17 at 21:00 Meclizine HCl (Antivert) 25 mg BID PRN PO DIZZINESS Last administered on 10:07; Admin Dose 25 MG; Start 02/21/17 at 23:00 Pantoprazole (Protonix Tab) 40 mg DAILY@06 PO Last administered on 02/25/17 05: 56; Admin Dose 40 MG; Start 02/23/17 at 06:00 Nitroglycerin (Nitroglycerin (Sl Tab) 0.4 Mg) 1 tab Q5M PRN SL ANGINA Last administered on 02/24/17 14:53; Admin Dose 1 TAB; Start 02/23/17 at 11:00 Enoxaparin Sodium (Lovenox) 70 mg Q12 SC Last administered on 02/24/17 22:27; Admin Dose 70 MG; Start 02/23/17 at 21:00 Sodium Biphosphate/ Sodium Phosphate (Fleet Enema) 133 ml DAILY PRN [place] CONSTIPATION; Start 02/23/17 at 20:30 PRINCE BROOKS Feb 25, 2017 09:58
[2017-02-25] MEDS ORDERED: FENTAnyl 50 MCG/ML VIAL ONE (10:48)
[2017-02-25] MEDS ORDERED: IODIXANOL LOCM 100 ML BTL ONE (10:48)
[2017-02-25] MEDS ORDERED: MIDAZOLAM 1 MG/ML 2 ML INJ ONE (10:48)
[2017-02-25] MEDS ORDERED: VERAPAMIL 5 MG INJ ONE (10:48)
[2017-02-25] MEDS ORDERED: HEPARIN 1000 UNITS/ML 10 ML INJ ONE (10:48)
[2017-02-25] MEDS ORDERED: LIDOCAINE 1% (MDV) 20 ML INJ ONE (10:48)
[2017-02-25] MEDS ORDERED: HEPARIN 1000 UNITS/NS (A-LINE) 1,000 ML ONE (10:48)
[2017-02-25] MEDS ORDERED: NITROGLYCERIN (IC) 100 MCG/ML INJ ONE (10:49)
[2017-02-25] MEDS ORDERED: TICAGRELOR 90 MG TABLET ONE (11:49)
[2017-02-25] MEDS ORDERED: IOHEXOL 350MG/ML 50 ML BTL ONE (11:49)
[2017-02-25] MEDS ORDERED: ASPIRIN 325 MG TAB ONE (11:49)
[2017-02-25] MEDS ORDERED: SOD CHLORIDE 0.9% 1,000 ML IV SCH (13:16)
--- NOTE | 2017-02-25 13:17 | SIPON ---
Date/Time of Note Date/Time of Note DATE: 02/25/17 TIME: 13:16 Operative Report Preoperative Diagnosis 1. NSTEMI 2.Chest pain Postoperative Diagnosis 1. PTCA/stent x 1 to LCX with ALPHONSE Operation/Procedure Performed 1.[facility] 2.PTCA/stent x 1 to LCX Surgeon: PRINCE BROOKS Estimated Blood Loss: minimal Transfusion Required: no Specimen: none Grafts/Implants: none Complications: no PRINCE BROOKS Feb 25, 2017 13:17
[2017-02-25] MEDS ORDERED: ONDANSETRON 4 MG INJ IV PRN (13:30)
[2017-02-25] MEDS ORDERED: OXYCODONE/ACETAMINOPHEN (5/325) TAB PO PRN (13:30)
[2017-02-25] MEDS ORDERED: AL HYDROX/MG HYDROX/SIMETH 30 ML CUP PO PRN (13:30)
[2017-02-25] MEDS ORDERED: ACETAMINOPHEN 325 MG TAB PO PRN ×2 (13:30→14:00)
--- NOTE | 2017-02-25 13:45 | CARRPT ---
DATE OF PROCEDURE: 02/25/2017 TYPE OF PROCEDURE: 1. Left heart catheterization. 2. Coronary angiography. 3. Percutaneous transluminal coronary angioplasty with placement of Affinity drug-eluting stent x1 to mid circumflex 3.0 x 16 mm. 4. Measurement of left ventricular end-diastolic pressure. ATTENDING PHYSICIAN: Dr. Phu Auguste. INDICATION: [id number] myocardial infarction with ongoing chest pain. TYPE OF ANESTHESIA: Conscious, local. BRIEF HISTORY AND HOSPITAL COURSE: Mr. Duran is a 71-year-old male, with history of hypertension, dyslipidemia, recent diagnosis of lung CA, who initially presented with chest pains and positive troponin consistent with [id number] myocardial infarction. The patient subsequently underwent medical therapy, continued with chest pains. He was brought to the cardiac label paster in order to assess for the possibility of significant atherosclerotic coronary artery disease due to symptoms of chest pain and subsequent [id number] myocardial infarction. PROCEDURE: After informed consent was obtained, the patient was brought to the [facility] where his right radial area was prepped in the usual sterile fashion. 2 percent lidocaine was infiltrated in the right radial area in order to achieve anesthesia. Using the modified Seldinger technique, the radial artery was cannulated and a 6- Somali arterial sheath. A 6-Somali JL3.5 catheter was used to cath the left main coronary ostium. With contrast injection, multiple views of the left coronary artery system were obtained. A JL3.5 was removed over a guidewire and a JR4 was used to cath the right coronary ostium. With contrast injection, multiple views of the right coronary system were obtained. JR4 was removed. A 6-Somali pigtail was passed down the ascending aorta. Left ventricular end-diastolic pressure was measured. The distal catheter was then pulled back across the aortic valve to assess for severe gradient, which there was none and removed. Subsequently, at this time, given findings of significant obstructive lesion in the patient's circumflex, we moved directly into an interventional procedure. Patient had an ACT checked to assure a good preliminary ACT returning at 280. Subsequently, a CLS3 guide was used to cath left main coronary ostium. A 0.014 balanced middleweight guidewire was passed distal to the lesion in the circumflex. The lesion was pretreated with a 2.0 x 12 mm balloon up to 18 and 20 atmospheres. The balloon was removed and the lesion was stented with a 3.0 x 16 mm drug-eluting stent deployed at 14 atmospheres, postdilated with the stent delivery system up to 16 atmospheres. The stent delivery system was removed. Follow up imagings were obtained with excellent results with deployment of the stent. ALDA-3 flow throughout the vessel. Mild stepdown distal to the stent and no signs of complication including perforation or dissection. Subsequently, at this time, the interventional guide and guidewires were removed. Patient's sheath was removed. TR band was applied. This completed the procedure and there were no known complications. Patient was given 180 mg of Brilinta and 350 mg aspirin. FINDINGS: 1. Coronary angiography: Left main, 4 mm, no significant stenosis. LAD proximally is a 3.5 mm vessel and in its midportion has approximately 40 percent to 50 percent stenosis. The remainder of the LAD is free of focal stenosis. The circumflex proximally is a 3.5 mm vessel and its midportion has an eccentric-appearing 90 percent stenosis. Thereafter, there is a tubular stenosis of approximately 40 percent. The circumflex is a dominant vessel, and therefore, gives off a left-sided PDA, 2 mm, with no significant focal stenoses and a small left-sided posterolateral branch, 2 mm, with no significant focal stenosis. The patient's right coronary artery is a small nondominant vessel, 2 mm, with no significant focal stenosis. PTCA AND STENT PLACEMENT: Prior to PTCA and stent placement, patient had eccentric-appearing 90 percent stenosis in the mid circumflex. Post PTCA and stent placement, the patient had no residual stenosis. ALDA-3 flow throughout the vessel. No signs of complication including perforation or dissection. TOTAL FLUOROSCOPY TIME: 5.9 minutes. TOTAL CONTRAST: 100 cc. IMPRESSION: 1. Single-vessel obstructive coronary disease involving a mid circumflex lesion, status post successful percutaneous transluminal coronary angioplasty and stent placement with a 3.0 x 16 mm drug-eluting stent. 2. Elevated left heart filling pressures, 25. 3. No significant aortic stenosis by gradient. RECOMMENDATIONS: In light of procedure findings at this time, would: 1. Maintain patient on Brilinta 90 mg 1 tab p.o. b.i.d. 2. Aspirin 81 mg 1 tab p.o. daily indefinitely. 3. Maximize medical management. 4. Aggressive risk factor reduction. 5. Patient admitted to the ICU for post and continue managing presenting symptoms. Dictated By: Phu Auguste MD /[email or web address]/rikki /Document#: [id number] CC: Nahid Arenas MD;*EndCC*
[2017-02-25] MEDS: NITROGLYCERIN (SL) 0.4 MG TAB SL PRN ×3 (14:37→21:55)
--- NOTE | 2017-02-25 19:15 | RADRPT ---
Vent Rate: 67 bpm RR Interval: 0 msec NE Interval: 156 msec QRS Duration: 86 msec QT Interval: 396 msec QTC Interval: 418 msec P-R-T [place]: 70 - 65 - 56 degrees Normal sinus rhythm with sinus arrhythmia Nonspecific T wave abnormality Abnormal ECG Electronically Signed By: Phu Auguste [id number]
--- NOTE | 2017-02-25 19:18 | RADRPT ---
Vent Rate: 87 bpm RR Interval: 0 msec AL Interval: 156 msec QRS Duration: 84 msec QT Interval: 366 msec QTC Interval: 440 msec P-R-T [place]: 75 - 78 - 71 degrees Normal sinus rhythm Nonspecific ST abnormality Abnormal ECG Electronically Signed By: Phu Auguste [id number]
[2017-02-25] MEDS ORDERED: TICAGRELOR 90 MG TABLET PO SCH (21:00)
[2017-02-25] MEDS: TICAGRELOR 90 MG TABLET PO SCH (21:00)
[2017-02-25] MEDS: MECLIZINE 25 MG TAB PO PRN (21:56)
[2017-02-25] MEDS: TAMSULOSIN (SR) 0.4 MG CAP PO SCH (21:57)
--- NOTE | 2017-02-25 23:21 | PN ---
Date/Time of Note Date/Time of Note DATE: 02/25/17 TIME: 23:20 Assessment/Plan VTE Prophylaxis VTE Prophylaxis Intervention: other Lines/Catheters IV C[facility]ter Type [facility] Peripheral IV Urinary Cath still in place: No Assessment/Plan Chief Complaint/Hosp Course 1Chest pain the patient likely non-ST elevation myocardial infarction (NSTEMI) and need to rule out for cardiac ischemia. 2. Shortness of breath with cough likely secondary to metastatic lung carcinoma (CA). 3. Chronic obstructive pulmonary disease (COPD). 4. Anemia. 5. Hypertension. 6. Hypercholesteremia. 7. Peripheral vascular disease, status post right popliteal angioplasty. 8 S/P CATH AND PCI PLAN IV FLUID Problems: Subjective 24 Hr Interval Summary Cardiovascular: no complaints Gastrointestinal: no complaints Genitourinary: no complaints Exam/Review of Systems Vital Signs Vitals Vital Signs Date Time Temp Pulse Resp B/P Pulse Ox O2 Delivery O2 Flow Rate FiO2 02/25/17 21:12 69 18 94 21 02/25/17 20:06 98.3 115/57 02/25/17 18:51 Nasal Cannula 2.0 Intake and Output 02/24/17 02/24/17 02/25/17 15:00 23:00 07:00 Intake Total 960 ml 500 ml Output Total 600 ml Balance 960 ml -100 ml Exam Neck: supple Respiratory: clear to auscultation Cardiovascular: regular rate and rhythm Gastrointestinal: soft Musculoskeletal: nl extremities to inspection Extremities: normal pulses Results Result Diagram: 02/25/17 0731 02/25/17 0731 Results 24 hrs Laboratory Tests Test 02/25/17 07:31 02/25/17 07:44 02/25/17 13:22 02/25/17 16:11 White Blood Count 7.8 Red Blood Count 3.88 L Hemoglobin 10.1 L Hematocrit 29.7 L Mean Corpuscular Volume 76.5 L Mean Corpuscular Hemoglobin 26.0 L Mean Corpuscular Hemoglobin Concent 34.0 Red Cell Distribution Width 15.4 H Platelet Count 262 Mean Platelet Volume 9.9 Neutrophils % 75.2 Lymphocytes % 11.8 L Monocytes % 9.9 Eosinophils % 2.1 Basophils % 0.4 Nucleated Red Blood Cells % 0.0 Neutrophils # (Manual) 5.9 Lymphocytes # 0.9 Monocytes # 0.8 Eosinophils # 0.2 Basophils # 0.0 Nucleated Red Blood Cells # 0.0 Prothrombin Time 13.5 Prothrombin Time Ratio 1.1 INR International Normalized Ratio 1.03 Sodium Level 126 L Potassium Level 4.6 Chloride Level 94 L Carbon Dioxide Level 25 Anion Gap 12 Blood Urea Nitrogen 16 Creatinine 0.97 Glucose Level 116 Calcium Level 9.2 Bedside Glucose 146 124 155 Test 02/25/17 21:03 Bedside Glucose 132 Medications Medications Current Medications Nadolol (Corgard) 20 mg DAILY PO Last administered on 02/25/17 08:13; Admin Dose 20 MG; Start 02/20/17 at 09:00 Tamsulosin HCl (Flomax) 0.4 mg HS PO Last administered on 02/25/17 21:57; Admin Dose 0.4 MG; Start 02/20/17 at 21:00 Folic Acid (Folic Acid) 1 mg DAILY PO Last administered on 02/25/17 08:12; Admin Dose 1 MG; Start 02/20/17 at 09:00 Aspirin (Aspirin) 81 mg DAILY PO Last administered on 02/25/17 08:12; Admin Dose 81 MG; Start 02/20/17 at 09:00 Salmeterol Xinafoate/ Fluticasone (Advair 250/50 Diskus) 1 inh BID INH Last administered on 02/25/17 21:58; Admin Dose 1 INH; Start 02/20/17 at 09:00 Morphine Sulfate (morphine) 2 mg Q4H PRN IV SEVERE PAIN LEVEL 7-10 Last administered on 02/22/17 04:23; Admin Dose 2 MG; Start 02/20/17 at 05:30 Furosemide (Lasix) 20 mg DAILY@06 PO Last administered on 02/25/17 05:56; Admin Dose 20 MG; Start 02/20/17 at 06:00 Diagnostic Test (Pha) (Accu-Chek) 1 ea 02 XX ; Start 02/21/17 at 02:00 Ferrous Sulfate (Ferrous Sulfate (Ec)) 325 mg DAILY PO Last administered on 02/25 08:12; Admin Dose 325 MG; Start 02/20/17 at 09:00 Miscellaneous Information 1 ea NOTE XX ; Start 02/20/17 at 06:15 Glucose (Glutose) 15 gm Q15M PRN PO DECREASED GLUCOSE; Start 02/20/17 at 06:15 Glucose (Glutose) 22.5 gm Q15M PRN PO DECREASED GLUCOSE; Start 02/20/17 at 06:15 Dextrose (D50w Syringe) 25 ml Q15M PRN IV DECREASED GLUCOSE; Start 02/20/17 at 06:15 Dextrose (D50w Syringe) 50 ml Q15M PRN IV DECREASED GLUCOSE; Start 02/20/17 at 06:15 Glucagon (Glucagen) 1 mg Q15M PRN IM DECREASED GLUCOSE; Start 02/20/17 at 06:15 Glucose (Glutose) 15 gm Q15M PRN BUCCAL DECREASED GLUCOSE; Start 02/20/17 at 06: 15 Isosorbide Dinitrate (Isordil) 10 mg TID PO Last administered on 02/25/17 08:12 ; Admin Dose 10 MG; Start 02/20/17 at 21:00 Meclizine HCl (Antivert) 25 mg BID PRN PO DIZZINESS Last administered on 21:56; Admin Dose 25 MG; Start 02/21/17 at 23:00 Pantoprazole (Protonix Tab) 40 mg DAILY@06 PO Last administered on 02/25/17 05: 56; Admin Dose 40 MG; Start 02/23/17 at 06:00 Nitroglycerin (Nitroglycerin (Sl Tab) 0.4 Mg) 1 tab Q5M PRN SL ANGINA Last administered on 02/25/17 21:55; Admin Dose 1 TAB; Start 02/23/17 at 11:00 Enoxaparin Sodium (Lovenox) 70 mg Q12 SC Last administered on 02/25/17 21:00; Admin Dose 70 MG; Start 02/23/17 at 21:00 Sodium Biphosphate/ Sodium Phosphate (Fleet Enema) 133 ml DAILY PRN [place] CONSTIPATION; Start 02/23/17 at 20:30 Ticagrelor (Brilinta) 90 mg BID PO Last administered on 02/25/17 21:00; Admin Dose 90 MG; Start 02/25/17 at 21:00 Aspirin (Halfprin) 81 mg DAILY PO ; Start 02/26/17 at 09:00 Oxycodone/ Acetaminophen (Percocet (5/ 325)) 1 tab Q4H PRN PO REPORTED NON- CARDIAC PAIN 4-7; Start 02/25/17 at 13:30 Al Hydrox/Mg Hydrox/Simethicone (Mag-Al Plus) 30 ml Q4H PRN PO GASTROINTESTINAL UPSET; Start 02/25/17 at 13:30 Ondansetron HCl 4 mg 4 mg Q4H PRN IV NAUSEA AND/OR VOMITING; Start 02/25/17 at 13:30 Sodium Chloride (NS) 1,000 ml @ 75 mls/hr [id number] IV Last administered on t 14:05; Admin Dose 75 MLS/HR; Start 02/25/17 at 13:16; Stop 02/26/17 at 02:35 Acetaminophen (Tylenol Tab) 650 mg Q4H PRN PO PAIN 1-3 AND OR ELEVATED TEMP; Start 02/25/17 at 14:00 NEDA VALVERDE MD Feb 25, 2017 23:21
[2017-02-26] VITALS (11 sets, daily range): BP systolic 95–129; BP diastolic 54–93; PULSE 61–70; RESP 17–20
[2017-02-26] MEDS: LEVALBUTEROL (NEB) 1.25 MG/0.5 ML AMP HHN PRN ×2 (01:25→04:47)
[2017-02-26] MEDS: IPRATROPIUM (NEB) 0.5 MG/2.5 ML AMP HHN SCH ×5 (01:26→16:44)
[2017-02-26] MEDS: ACCU-CHEK XX SCH (02:00)
[2017-02-26] MEDS: FUROSEMIDE 20 MG TAB PO SCH (05:50)
[2017-02-26] MEDS: PANTOPRAZOLE (EC) 40 MG TAB PO SCH (05:51)
--- NOTE | 2017-02-26 07:18 | RADRPT ---
Vent Rate: 58 bpm RR Interval: 0 msec [place] Interval: 168 msec QRS Duration: 88 msec QT Interval: 446 msec QTC Interval: 437 msec P-R-T [place]: 64 - 62 - 54 degrees Sinus bradycardia Nonspecific T wave abnormality Abnormal ECG Electronically Signed By: Phu Auguste [id number]
[2017-02-26] MEDS: INSULIN ASPART [NOVOLOG] 3 ML PEN SC SCH ×2 (07:55→14:00)
[2017-02-26 07:58] LABS: BASOPHILS % 0.4 % (0.0-2.0); EOSINOPHILS # 0.2 10^3/ul (0.0-0.5); EOSINOPHILS % 2.1 % (0.0-7.0); HEMATOCRIT 29.3 % (42.0-52.0); LYMPHOCYTES # 0.9 10^3/ul (0.8-2.9); LYMPHOCYTES % 10.9 % (15.0-51.0); MEAN CORPUSCULAR HEMOGLOBIN 26.4 pg (29.0-33.0); MEAN CORPUSCULAR HGB CONC 34.1 g/dl (32.0-37.0); MEAN CORPUSCULAR VOLUME 77.3 fl (82.0-101.0); MEAN PLATELET VOLUME 9.8 fl (7.4-10.4); MONOCYTE # 0.7 10^3/ul (0.3-0.9); MONOCYTES % 8.8 % (0.0-11.0); NEUTROPHILS % 77.3 % (39.0-77.0); PLATELET COUNT 269 10^3/UL (140-415); RED BLOOD COUNT 3.79 10^6/ul (4.70-6.10); RED CELL DISTRIBUTION WIDTH 15.5 % (11.5-14.5)
[2017-02-26] MEDS: NITROGLYCERIN (SL) 0.4 MG TAB SL PRN ×2 (08:22→08:31)
[2017-02-26 08:34] LABS: CALCIUM 9.4 mg/dl (8.4-10.2); CREATININE 0.93 mg/dl (0.61-1.24); POTASSIUM 4.4 mmol/L (3.5-5.1)
[2017-02-26] MEDS: SALMETEROL/FLUTICASONE 250/50 INHA INH SCH (08:48)
[2017-02-26] MEDS: FOLIC ACID 1 MG TAB PO SCH (08:49)
[2017-02-26] MEDS: FERROUS SULFATE (EC) 325 MG TAB PO SCH (08:49)
[2017-02-26] MEDS ORDERED: ASPIRIN (EC) 81 MG TAB PO SCH (09:00)
[2017-02-26] MEDS: ENOXAPARIN 80 MG/0.8 ML SYG SC SCH (09:07)
[2017-02-26] MEDS: TICAGRELOR 90 MG TABLET PO SCH (09:09)
[2017-02-26] MEDS: NADOLOL 40 MG TAB PO SCH (09:33)
[2017-02-26] MEDS: ISOSORBIDE DINITRATE 10 MG TAB PO SCH ×2 (09:33→13:38)
--- NOTE | 2017-02-26 12:09 | CONS ---
Date/Time of Note Date/Time of Note DATE: 02/26/17 TIME: 12:03 Assessment/Plan Assessment/Plan Chief Complaint/Hosp Course IMPRESSION: 1. Positive troponin concerning for non-ST elevation myocardial infarction with down trending cardiac enzymes.-EF 50% by echo. Now POD#1 s/p PTCA/stent x 1 to LCX with ALPHONSE 2. Hypertension under good control. 3. Electrocardiogram. 4. Dyslipidemia with low HDL. 5. Recent diagnosis of lung carcinoma. 6. Chronic obstructive pulmonary disease. 7. Prior extensive tobacco intake. 8. Anemia. 9. Chest pain-? now due to stretch on vessel from stent placement of lung ca- No change on am ecg REcc: -Tele -serial ecg's -Continue asa/brilinta if insuarnace will cover and if not will change back to plavix/asa -Continue nadolol -Continue isordil but on d/c would change to imdur 30 po daily for easier dosing schedule -outpatient f/u 2 weeks, given card for f/u info -D/C planning Problems: Consultation Date/Type/Reason Admit Date/Time Feb 20, 2017 at 01:46 Initial Consult Date 02/22/17 Type of Consultation: cardiology Reason for Consultation Nstemi Referring Provider: NEDA VALVERDE MD Exam/Review of Systems Vital Signs Vitals Vital Signs Date Time Temp Pulse Resp B/P Pulse Ox O2 Delivery O2 Flow Rate FiO2 02/26/17 08:28 70 02/26/17 08:23 18 129/62 97 Room Air 02/26/17 07:46 98.5 02/26/17 04:47 21 02/25/17 20:00 2.0 Intake and Output 02/25/17 02/25/17 02/26/17 15:00 23:00 07:00 Intake Total 480 ml 240 ml 400 ml Output Total 250 ml 550 ml Balance 230 ml -310 ml 400 ml Exam Review of Systems: CONSTITUTIONAL: No fevers, chills. PULMONARY: No sob CARDIOVASCULAR: No chest pain/palpitations GASTROINTESTINAL: No nausea/vomiting. GENITOURINARY: No hematuria/dysuria. MUSCULOSKELETAL: No myagias/arthalgias. PSYCHIATRIC: The patient denies depression. NEUROLOGIC: No weakness Constitutional: alert Psych: no complaints Head: normocephalic ENMT: mucosa pink and moist Neck: jvd, supple Cardiovascular: regular rate and rhythm Gastrointestinal: non-tender, soft Musculoskeletal: muscle tone (normal) Extremities: edema (none) Neurological: other (No focal deficits) Results Result Diagram: 02/26/17 0715 02/26/17 0712 Results 24 hrs Laboratory Tests Test 02/25/17 13:22 02/25/17 16:11 02/25/17 21:03 02/26/17 07:12 Bedside Glucose 124 155 132 Sodium Level 132 L Potassium Level 4.4 Chloride Level 98 Carbon Dioxide Level 25 Anion Gap 13 Blood Urea Nitrogen 12 Creatinine 0.93 Glucose Level 115 Calcium Level 9.4 Test 02/26/17 07:15 02/26/17 08:28 White Blood Count 8.0 Red Blood Count 3.79 L Hemoglobin 10.0 L Hematocrit 29.3 L Mean Corpuscular Volume 77.3 L Mean Corpuscular Hemoglobin 26.4 L Mean Corpuscular Hemoglobin Concent 34.1 Red Cell Distribution Width 15.5 H Platelet Count 269 Mean Platelet Volume 9.8 Neutrophils % 77.3 H Lymphocytes % 10.9 L Monocytes % 8.8 Eosinophils % 2.1 Basophils % 0.4 Nucleated Red Blood Cells % 0.0 Neutrophils # (Manual) 6.2 Lymphocytes # 0.9 Monocytes # 0.7 Eosinophils # 0.2 Basophils # 0.0 Nucleated Red Blood Cells # 0.0 Bedside Glucose 136 Medications Medications Current Medications Nadolol (Corgard) 20 mg DAILY PO Last administered on 02/26/17 09:33; Admin Dose 20 MG; Start 02/20/17 at 09:00 Tamsulosin HCl (Flomax) 0.4 mg HS PO Last administered on 02/25/17 21:57; Admin Dose 0.4 MG; Start 02/20/17 at 21:00 Folic Acid (Folic Acid) 1 mg DAILY PO Last administered on 02/26/17 08:49; Admin Dose 1 MG; Start 02/20/17 at 09:00 Aspirin (Aspirin) 81 mg DAILY PO Last administered on 02/25/17 08:12; Admin Dose 81 MG; Start 02/20/17 at 09:00 Salmeterol Xinafoate/ Fluticasone (Advair 250/50 Diskus) 1 inh BID INH Last administered on 02/26/17 08:48; Admin Dose 1 INH; Start 02/20/17 at 09:00 Morphine Sulfate (morphine) 2 mg Q4H PRN IV SEVERE PAIN LEVEL 7-10 Last administered on 02/22/17 04:23; Admin Dose 2 MG; Start 02/20/17 at 05:30 Furosemide (Lasix) 20 mg DAILY@06 PO Last administered on 02/26/17 05:50; Admin Dose 20 MG; Start 02/20/17 at 06:00 Diagnostic Test (Pha) (Accu-Chek) 1 ea 02 XX ; Start 02/21/17 at 02:00 Ferrous Sulfate (Ferrous Sulfate (Ec)) 325 mg DAILY PO Last administered on 02/26 08:49; Admin Dose 325 MG; Start 02/20/17 at 09:00 Miscellaneous Information 1 ea NOTE XX ; Start 02/20/17 at 06:15 Glucose (Glutose) 15 gm Q15M PRN PO DECREASED GLUCOSE; Start 02/20/17 at 06:15 Glucose (Glutose) 22.5 gm Q15M PRN PO DECREASED GLUCOSE; Start 02/20/17 at 06:15 Dextrose (D50w Syringe) 25 ml Q15M PRN IV DECREASED GLUCOSE; Start 02/20/17 at 06:15 Dextrose (D50w Syringe) 50 ml Q15M PRN IV DECREASED GLUCOSE; Start 02/20/17 at 06:15 Glucagon (Glucagen) 1 mg Q15M PRN IM DECREASED GLUCOSE; Start 02/20/17 at 06:15 Glucose (Glutose) 15 gm Q15M PRN BUCCAL DECREASED GLUCOSE; Start 02/20/17 at 06: 15 Isosorbide Dinitrate (Isordil) 10 mg TID PO Last administered on 02/26/17 09:33 ; Admin Dose 10 MG; Start 02/20/17 at 21:00 Meclizine HCl (Antivert) 25 mg BID PRN PO DIZZINESS Last administered on 21:56; Admin Dose 25 MG; Start 02/21/17 at 23:00 Pantoprazole (Protonix Tab) 40 mg DAILY@06 PO Last administered on 02/26/17 05: 51; Admin Dose 40 MG; Start 02/23/17 at 06:00 Nitroglycerin (Nitroglycerin (Sl Tab) 0.4 Mg) 1 tab Q5M PRN SL ANGINA Last administered on 02/26/17 08:31; Admin Dose 1 TAB; Start 02/23/17 at 11:00 Enoxaparin Sodium (Lovenox) 70 mg Q12 SC Last administered on 02/26/17 09:07; Admin Dose 70 MG; Start 02/23/17 at 21:00 Sodium Biphosphate/ Sodium Phosphate (Fleet Enema) 133 ml DAILY PRN [place] CONSTIPATION; Start 02/23/17 at 20:30 Ticagrelor (Brilinta) 90 mg BID PO Last administered on 02/26/17 09:09; Admin Dose 90 MG; Start 02/25/17 at 21:00 Aspirin (Halfprin) 81 mg DAILY PO Last administered on 02/26/17 08:49; Admin Dose 81 MG; Start 02/26/17 at 09:00 Oxycodone/ Acetaminophen (Percocet (5/ 325)) 1 tab Q4H PRN PO REPORTED NON- CARDIAC PAIN 4-7; Start 02/25/17 at 13:30 Al Hydrox/Mg Hydrox/Simethicone (Mag-Al Plus) 30 ml Q4H PRN PO GASTROINTESTINAL UPSET; Start 02/25/17 at 13:30 Ondansetron HCl (Zofran Inj) 4 mg Q4H PRN IV NAUSEA AND/OR VOMITING; Start 02/25 at 13:30 Acetaminophen (Tylenol Tab) 650 mg Q4H PRN PO PAIN 1-3 AND OR ELEVATED TEMP; Start 02/25/17 at 14:00 PRINCE BROOKS Feb 26, 2017 12:09
--- NOTE | 2017-02-26 12:58 | PDOCDIS ---
Discharge Instructions CONDITION Patient Condition: Stable HOME CARE INSTRUCTIONS: Special Diet: 1800CAL 2G NA ACTIVITY: Activity Restrictions: Slowly Increase Activity FOLLOW UP/APPOINTMENTS Follow-up Plan f/u pcp 1 wk, see dr koch 1 wk NEDA VALVERDE MD Feb 26, 2017 12:58
[2017-02-26] MEDS ORDERED: CLOPIDOGREL 75 MG TAB PO ONE (13:00)
[2017-02-26] MEDS ORDERED: ISOS10TA2 PO (13:02)
[2017-02-26] MEDS ORDERED: CLOP75TA27 PO (13:02)
[2017-02-26] MEDS ORDERED: LEVA1.2523 HHN (13:02)
[2017-02-26] MEDS ORDERED: Ipratropium 0.02% (Neb) HHN (13:02)
[2017-02-26] MEDS ORDERED: ASPI325T4 PO (13:02)
[2017-02-26] MEDS ORDERED: COR40 PO (13:02)
[2017-02-26] MEDS ORDERED: LAS20 PO (13:02)
[2017-02-26] MEDS ORDERED: NIT4 SL (13:02)
[2017-02-26] MEDS ORDERED: ADV25050 INH (13:02)
--- NOTE | 2017-02-26 16:48 | PN ---
Date/Time of Note Date/Time of Note DATE: 02/26/17 TIME: 16:47 Assessment/Plan VTE Prophylaxis VTE Prophylaxis Intervention: other Lines/Catheters IV [facility] Sal[facility] Urinary Cath still in place: No Assessment/Plan Chief Complaint/Hosp Course 1Chest pain the patient likely non-ST elevation myocardial infarction (NSTEMI) and need to rule out for cardiac ischemia. 2. Shortness of breath with cough likely secondary to metastatic lung carcinoma (CA). 3. Chronic obstructive pulmonary disease (COPD). 4. Anemia. 5. Hypertension. 6. Hypercholesteremia. 7. Peripheral vascular disease, status post right popliteal angioplasty. 8 S/P CATH AND PCI PLAN IV FLUID home Problems: Subjective 24 Hr Interval Summary Cardiovascular: no complaints Gastrointestinal: no complaints Exam/Review of Systems Vital Signs Vitals Vital Signs Date Time Temp Pulse Resp B/P Pulse Ox O2 Delivery O2 Flow Rate FiO2 02/26/17 16:18 61 02/26/17 15:15 98.1 20 95/54 95 02/26/17 12:29 21 02/26/17 08:23 Room Air 02/25/17 20:00 2.0 Intake and Output 02/25/17 02/25/17 02/26/17 14:59 22:59 06:59 Intake Total 480 ml 240 ml 400 ml Output Total 250 ml 550 ml Balance 230 ml -310 ml 400 ml Exam Neck: supple Respiratory: clear to auscultation Cardiovascular: regular rate and rhythm Gastrointestinal: bowel sounds (+), soft Results Result Diagram: 02/26/17 0715 02/26/17 0712 Results 24 hrs Laboratory Tests Test 02/25/17 21:03 02/26/17 07:12 02/26/17 07:15 02/26/17 08:28 Bedside Glucose 132 136 Sodium Level 132 L Potassium Level 4.4 Chloride Level 98 Carbon Dioxide Level 25 Anion Gap 13 Blood Urea Nitrogen 12 Creatinine 0.93 Glucose Level 115 Calcium Level 9.4 White Blood Count 8.0 Red Blood Count 3.79 L Hemoglobin 10.0 L Hematocrit 29.3 L Mean Corpuscular Volume 77.3 L Mean Corpuscular Hemoglobin 26.4 L Mean Corpuscular Hemoglobin Concent 34.1 Red Cell Distribution Width 15.5 H Platelet Count 269 Mean Platelet Volume 9.8 Neutrophils % 77.3 H Lymphocytes % 10.9 L Monocytes % 8.8 Eosinophils % 2.1 Basophils % 0.4 Nucleated Red Blood Cells % 0.0 Neutrophils # (Manual) 6.2 Lymphocytes # 0.9 Monocytes # 0.7 Eosinophils # 0.2 Basophils # 0.0 Nucleated Red Blood Cells # 0.0 Test 02/26/17 13:02 02/26/17 14:08 Bedside Glucose 163 Troponin I 0.211 *H Medications Medications Current Medications Nadolol (Corgard) 20 mg DAILY PO Last administered on 02/26/17 09:33; Admin Dose 20 MG; Start 02/20/17 at 09:00 Tamsulosin HCl (Flomax) 0.4 mg HS PO Last administered on 02/25/17 21:57; Admin Dose 0.4 MG; Start 02/20/17 at 21:00 Folic Acid (Folic Acid) 1 mg DAILY PO Last administered on 02/26/17 08:49; Admin Dose 1 MG; Start 02/20/17 at 09:00 Salmeterol Xinafoate/ Fluticasone (Advair 250/50 Diskus) 1 inh BID INH Last administered on 02/26/17 08:48; Admin Dose 1 INH; Start 02/20/17 at 09:00 Morphine Sulfate (morphine) 2 mg Q4H PRN IV SEVERE PAIN LEVEL 7-10 Last administered on 02/22/17 04:23; Admin Dose 2 MG; Start 02/20/17 at 05:30 Furosemide (Lasix) 20 mg DAILY@06 PO Last administered on 02/26/17 05:50; Admin Dose 20 MG; Start 02/20/17 at 06:00 Diagnostic Test (Pha) (Accu-Chek) 1 ea 02 XX ; Start 02/21/17 at 02:00 Ferrous Sulfate (Ferrous Sulfate (Ec)) 325 mg DAILY PO Last administered on 02/26 08:49; Admin Dose 325 MG; Start 02/20/17 at 09:00 Miscellaneous Information 1 ea NOTE XX ; Start 02/20/17 at 06:15 Glucose (Glutose) 15 gm Q15M PRN PO DECREASED GLUCOSE; Start 02/20/17 at 06:15 Glucose (Glutose) 22.5 gm Q15M PRN PO DECREASED GLUCOSE; Start 02/20/17 at 06:15 Dextrose (D50w Syringe) 25 ml Q15M PRN IV DECREASED GLUCOSE; Start 02/20/17 at 06:15 Dextrose (D50w Syringe) 50 ml Q15M PRN IV DECREASED GLUCOSE; Start 02/20/17 at 06:15 Glucagon (Glucagen) 1 mg Q15M PRN IM DECREASED GLUCOSE; Start 02/20/17 at 06:15 Glucose (Glutose) 15 gm Q15M PRN BUCCAL DECREASED GLUCOSE; Start 02/20/17 at 06: 15 Isosorbide Dinitrate (Isordil) 10 mg TID PO Last administered on 02/26/17 13:38 ; Admin Dose 10 MG; Start 02/20/17 at 21:00 Meclizine HCl (Antivert) 25 mg BID PRN PO DIZZINESS Last administered on 21:56; Admin Dose 25 MG; Start 02/21/17 at 23:00 Pantoprazole (Protonix Tab) 40 mg DAILY@06 PO Last administered on 02/26/17 05: 51; Admin Dose 40 MG; Start 02/23/17 at 06:00 Nitroglycerin (Nitroglycerin (Sl Tab) 0.4 Mg) 1 tab Q5M PRN SL ANGINA Last administered on 02/26/17 08:31; Admin Dose 1 TAB; Start 02/23/17 at 11:00 Sodium Biphosphate/ Sodium Phosphate (Fleet Enema) 133 ml DAILY PRN FL CONSTIPATION; Start 02/23/17 at 20:30 Oxycodone/ Acetaminophen (Percocet (5/ 325)) 1 tab Q4H PRN PO REPORTED NON- CARDIAC PAIN 4-7; Start 02/25/17 at 13:30 Al Hydrox/Mg Hydrox/Simethicone (Mag-Al Plus) 30 ml Q4H PRN PO GASTROINTESTINAL UPSET; Start 02/25/17 at 13:30 Ondansetron HCl (Zofran Inj) 4 mg Q4H PRN IV NAUSEA AND/OR VOMITING; Start 02/25 at 13:30 Acetaminophen (Tylenol Tab) 650 mg Q4H PRN PO PAIN 1-3 AND OR ELEVATED TEMP; Start 02/25/17 at 14:00 Enoxaparin Sodium (Lovenox) 40 mg DAILY SC ; Start 02/27/17 at 09:00 Clopidogrel Bisulfate (plaVIX) 75 mg DAILY PO ; Start 02/27/17 at 09:00 Aspirin (Aspirin) 325 mg DAILY PO ; Start 02/27/17 at 09:00 NEDA VALVERDE MD Feb 26, 2017 16:48
--- NOTE | 2017-02-26 19:35 | RADRPT ---
Vent Rate: 62 bpm RR Interval: 0 msec SC Interval: 164 msec QRS Duration: 84 msec QT Interval: 422 msec QTC Interval: 428 msec P-R-T [place]: 65 - 74 - 61 degrees Normal sinus rhythm Nonspecific T wave abnormality Abnormal ECG Electronically Signed By: Phu Auguste [id number]
[2017-02-27] MEDS ORDERED: ENOXAPARIN 40 MG/0.4 ML SYG SC SCH (09:00)
[2017-02-27] MEDS ORDERED: ASPIRIN 325 MG TAB PO SCH (09:00)
[2017-02-27] MEDS ORDERED: CLOPIDOGREL 75 MG TAB PO SCH (09:00)
== END 2017-02-26 18:25 | disposition home or self-care (01) | DRG 247 ==
LOC: E/R 18:55 → TEL 02-20 01:46 → ICU 02-25 12:45 → TEL 02-25 18:07
PROVIDERS: ADMIT Internal Medicine Nephrology; ATTEND Internal Medicine Nephrology
PROC: B2011ZZ Plain Radiography of Multiple Coronary Arteries using Low Osmolar Contrast (ICD-10-PCS; 2017-02-25)
PROC: 027034Z Dilation of Coronary Artery, One Artery with Drug-eluting Intraluminal Device, Percutaneous Approach (ICD-10-PCS; principal; 2017-02-25 09:30)
PROC: 4A023N7 Measurement of Cardiac Sampling and Pressure, Left Heart, Percutaneous Approach (ICD-10-PCS; 2017-02-25 09:30)
DX: I21.4 Non-ST elevation (NSTEMI) myocardial infarction (principal); C77.3 Secondary and unspecified malignant neoplasm of axilla and upper limb lymph nodes; C34.11 Malignant neoplasm of upper lobe, right bronchus or lung; D64.9 Anemia, unspecified; E11.9 Type 2 diabetes mellitus without complications; J44.1 Chronic obstructive pulmonary disease with (acute) exacerbation; I10 Essential (primary) hypertension; I73.9 Peripheral vascular disease, unspecified; N40.0 Benign prostatic hyperplasia without lower urinary tract symptoms; Z87.891 Personal history of nicotine dependence; I71.4 Abdominal aortic aneurysm, without rupture; Z79.02 Long term (current) use of antithrombotics/antiplatelets; Z79.82 Long term (current) use of aspirin; I25.119 Atherosclerotic heart disease of native coronary artery with unspecified angina pectoris
CPT/HCPCS: 36415; 71010; 71020; 71275; 80048; 80061; 82550; 82553; 82962; 83880; 84484; 85025; 85610; 87081; 93005; 93306; 94640; 94664; 96372; 96374; J1940; C1725; C1874; C1887; C9113; J1644; J1815; J2250; J2270; J3010; J7030; Q9967

== ENCOUNTER 2017-03-30 16:10 | Emergency (ER) | payer OTHER ==
[~2017-03-30] VITALS: Ht 177.8 cm; Wt 65.9 kg
[~2017-03-30 16:10] MED LIST changes: -DICL75TA2 PO; -METF-730 PO; +METF500T4 PO; -NADO20TA PO; +NADO20TA10 PO
[2017-03-30 17:10] VITALS: Ht 177.8 cm; Wt 65.9 kg
--- NOTE | 2017-03-30 17:35 | ERA ---
ER Documentation Chief Complaint Date/Time DATE: 03/30/17 TIME: 17:34 Chief Complaint CAME IN VIA INTAKE DUE TO SUDDEN ONSET OF WEAKNESS AFTER CHEMO HPI The patient is a 71-year-old male, presenting to the ER because of generalized weakness ever since he started chemotherapy on February 27, [address] Ross for metastatic lung CA. He received a second dose last week. , he has history of metastatic lung CA, not a candidate for surgery or radiation therapy; He denies fever, chills, cough, neck pain, pleuritic chest pain, chest pain with exertion or diaphoresis or vomiting. He denies abdominal pain, vomiting, dysuria, diarrhea. He used to smoke until 5 months ago Past medical history: History of metastatic lung carcinoma, diabetes mellitus, BPH, hypertension, peripheral vascular disease, COPD, Anemia Past surgical history: Right popliteal angioplasty, stent PCI ROS All systems reviewed and are negative except as per history of present illness. Medications Home Meds Active Scripts Clopidogrel Bisulfate (Clopidogrel) 75 Mg Tablet, 75 MG PO DAILY for 30 Days, # 30 TAB Prov:NEDA VALVERDE MD 02/26/17 Reported Medications Metformin Hcl* (Metformin Hcl*) 500 Mg Tablet, 500 MG PO WITH BREAKFAST DINNE, # 30 TAB 03/21/17 Nadolol (CORGARD) 20 Mg Tablet, 20 MG PO DAILY, #30 TAB 03/21/17 Aspirin (Low Dose Aspirin) 81 Mg Tablet.dr, 81 MG PO DAILY, #30 TAB 03/21/17 Ferrous Sulfate* (Ferrous Sulfate*) 325 Mg Tabec, 325 MG PO DAILY, TAB 01/31/17 Folic Acid* (Folic Acid*) 1 Mg Tablet, 1 MG PO DAILY, TAB 08/18/16 Meclizine Hcl* (Meclizine Hcl*) 25 Mg Tablet, 25 MG PO BID Y for DIZZINESS, TAB 08/18/16 Tamsulosin Hcl* (Tamsulosin Hcl*) 0.4 Mg Cap.er.24h, 0.4 MG PO DAILY, CAP 08/18/16 Allergies Allergies: Coded Allergies: No Known Allergy (Unverified , 03/21/17) PMhx/Soc History of Surgery: Yes Anesthesia Reaction: No Hx Neurological Disorder: No Hx Respiratory Disorders: Yes (COPD) Hx Cardiac Disorders: Yes (HTN) Hx Psychiatric Problems: No Hx Miscellaneous Medical Probl: Yes (PVD) Hx Alcohol Use: No Hx Substance Use: No Hx Tobacco Use: Yes Physical Exam Vitals Vital Signs Date Time Temp Pulse Resp B/P Pulse Ox O2 Delivery O2 Flow Rate FiO2 03/30/17 19:25 65 15 130/69 98 Room Air 03/30/17 18:54 65 15 132/82 97 Room Air 03/30/17 17:10 97.9 68 18 105/56 90 Physical Exam Const: No acute distress. Head: Atraumatic. Eyes: Normal Conjunctiva. ENT: Normal External Ears, Nose and Mouth. Neck: Full range of motion. No meningismus. Resp: Clear to auscultation bilaterally. Cardio: Regular rate and rhythm. Abd: Soft, non distended, normal bowel sounds, non tender. Skin: No petechiae or rashes. Back: No midline or flank tenderness. Ext: No cyanosis, or edema. Neur: Awake and alert. No focal deficit Psych: Normal Mood and Affect. Result Diagram: 03/30/17 1750 03/30/17 175 Results 24 hrs Laboratory Tests Test 03/30/17 17:50 03/30/17 19:23 White Blood Count 3.610^3/ul Red Blood Count 3.0310^6/ul Hemoglobin 8.7g/dl Hematocrit 24.9% Mean Corpuscular Volume 82.2fl Mean Corpuscular Hemoglobin 28.7pg Mean Corpuscular Hemoglobin Concent 34.9g/dl Red Cell Distribution Width 16.8% Platelet Count 8310^3/UL Mean Platelet Volume 10.0fl Neutrophils % 70.6% Lymphocytes % 18.7% Monocytes % 9.5% Eosinophils % 0.3% Basophils % 0.3% Nucleated Red Blood Cells % 0.0/100WBC Neutrophils # 2.510^3/ul Lymphocytes # 0.710^3/ul Monocytes # 0.310^3/ul Eosinophils # 0.010^3/ul Basophils # 0.010^3/ul Nucleated Red Blood Cells # 0.010^3/ul Sodium Level 131mmol/L Potassium Level 4.2mmol/L Chloride Level 104mmol/L Carbon Dioxide Level 24mmol/L Anion Gap 7 Blood Urea Nitrogen 18mg/dl Creatinine 0.88mg/dl Glucose Level 118mg/dl Calcium Level 8.7mg/dl Total Bilirubin 0.3mg/dl Direct Bilirubin 0.00mg/dl Indirect Bilirubin 0.3mg/dl Aspartate Amino Transf (AST/SGOT) 24IU/L Alanine Aminotransferase (ALT/SGPT) 26IU/L Alkaline Phosphatase 65IU/L Total Protein 7.2g/dl Albumin 3.6g/dl Globulin 3.60g/dl Albumin/Globulin Ratio 1.00 Lipase 62U/L Bedside Urine pH (LAB) 7.0 Bedside Urine Protein (LAB) Negative Bedside Urine Glucose (UA) Negative Bedside Urine Ketones (LAB) Negative Bedside Urine Blood 1+ Bedside Urine Nitrite (LAB) Negative Bedside Urine Leukocyte Esterase (L Negative Current Medications Medications (Trade) Dose Ordered Sig/Kraig Route PRN Reason Start Time Stop Time Status Last Admin Dose Admin Sodium Chloride (NS) 1,000 ml @ 1,000 mls/hr Q1H ONCE IV 03/30/17 18:00 03/30/17 18:59 DC 03/30/17 18:00 Procedures/MDM [place] [id number] Radiology Main Line: [phone] DIAGNOSTIC IMAGING REPORT Patient: MAYUR WILSON : 1945 Age: 71 Sex: M MR #: [id number] DOS: 03/30/17 1750 Ordering MD: LIDA LAU MD Location: E/R Room/Bed: PROCEDURE: XR Chest 1 View. CLINICAL INDICATION: Shortness of breath. Abdominal pain. TECHNIQUE: AP view of the chest was obtained. COMPARISON: March 21, 2017 FINDINGS: The heart size is within normal limits. Calcified atherosclerosis is noted in the aorta. Chronic mild interstitial prominence is seen in both lungs. Subsegmental atelectasis is noted at the lung bases. No consolidations are identified. No pneumothorax is seen. Right upper lobe lung nodule is not as well visualized as on prior exam, but likely remains present. Osseous structures are intact. IMPRESSION: Calcified atherosclerosis in the aorta. Chronic mild interstitial prominence in both lungs. Atelectasis at the lung bases. Right upper lobe lung nodule not as well visualized as on prior exam, but likely remains present. RPTAT: AA .Kavon Aponte MD, MD Date Time Electronically viewed and signed by .Kavon Apnote MD, on 03/30/2017 19:05 .P/ CC: LIDA LAU MD MEDICAL MAKING DECISION: The patient is a 71-year-old male, presenting with generalized weakness and pancytopenia due to ongoing chemotherapy. He stated that he does not want chemotherapy anymore because of how it makes him feel. There is no sign for infection or acute GI bleeding. He is stable for outpatient follow-up. He was treated with 1 L normal saline for clinical dehydration with good response The differential diagnoses considered include but are not limited to UTI, pneumonia, GI bleed, dehydration Departure Diagnosis: Primary Impression: Generalized weakness Additional Impression: Pancytopenia Condition: Good Comments I discussed the findings with the patient. I advised the patient to follow-up with His oncologist tomorrow to discuss about Epogen and whether to continue chemotherapy, and return if any concern. LIDA LAU MD Mar 30, 2017 17:35
[2017-03-30 17:59] LABS: ABNORMAL IP MESSAGE 1; BASOPHILS % 0.3 % (0.0-2.0); EOSINOPHILS % 0.3 % (0.0-7.0); HEMATOCRIT 24.9 % (42.0-52.0); HEMOGLOBIN 8.7 g/dl (14.0-18.0); LYMPHOCYTES # 0.7 10^3/ul (0.8-2.9); LYMPHOCYTES % 18.7 % (15.0-51.0); MEAN CORPUSCULAR HEMOGLOBIN 28.7 pg (29.0-33.0); MEAN CORPUSCULAR HGB CONC 34.9 g/dl (32.0-37.0); MEAN CORPUSCULAR VOLUME 82.2 fl (82.0-101.0); MONOCYTE # 0.3 10^3/ul (0.3-0.9); MONOCYTES % 9.5 % (0.0-11.0); NEUTROPHIL # 2.5 10^3/ul (1.6-7.5); NEUTROPHILS % 70.6 % (39.0-77.0); POSITIVE DIFF @See below; RED BLOOD COUNT 3.03 10^6/ul (4.70-6.10); RED CELL DISTRIBUTION WIDTH 16.8 % (11.5-14.5); WHITE BLOOD COUNT 3.6 10^3/ul (4.8-10.8)
[2017-03-30] MEDS ORDERED: SOD CHLORIDE 0.9% 1,000 ML IV ONE (18:00)
[2017-03-30 18:12] LABS: PLATELET COUNT 83 10^3/UL (140-415)
[2017-03-30 18:15] LABS: ALBUMIN 3.6 g/dl (3.3-4.9); BILIRUBIN,INDIRECT 0.3 mg/dl (0-1.1); BILIRUBIN,TOTAL 0.3 mg/dl (0.2-1.3); CALCIUM 8.7 mg/dl (8.4-10.2); CREATININE 0.88 mg/dl (0.61-1.24); POTASSIUM 4.2 mmol/L (3.5-5.1); TOTAL PROTEIN 7.2 g/dl (6.1-8.1)
--- NOTE | 2017-03-30 19:05 | RADRPT ---
PROCEDURE: XR Chest 1 View. CLINICAL INDICATION: Shortness of breath. Abdominal pain. TECHNIQUE: AP view of the chest was obtained. COMPARISON: March 21, 2017 FINDINGS: The heart size is within normal limits. Calcified atherosclerosis is noted in the aorta. Chronic mi ld interstitial prominence is seen in both lungs. Subsegmental atelectasis is noted at the lung base s. No consolidations are identified. No pneumothorax is seen. Right upper lobe lung nodule is not as well visualized as on prior exam, but likely remains present. Osseous structures are intact. IMPRESSION: Calcified atherosclerosis in the aorta. Chronic mild interstitial prominence in both lungs. Atelectasis at the lung bases. Right upper lobe lung nodule not as well visualized as on prior exam, but likely remains present. RPTAT: AA .Kavon Aponte MD, Date Time Electronically viewed and signed by .Kavon Aponte MD, on 03/30/2017 19:05 .P/
[2017-03-30 19:15] LABS: URINE BLOOD (Dip) POC 1+ (NEGATIVE)
[2017-03-30 19:25] VITALS: BP 130/69; PULSE 65; RESP 15
== END 2017-03-30 20:15 | disposition home or self-care (01) ==
LOC: E/R 16:10
DX: R53.1 Weakness (principal); D61.810 Antineoplastic chemotherapy induced pancytopenia; I10 Essential (primary) hypertension; J44.9 Chronic obstructive pulmonary disease, unspecified; E11.9 Type 2 diabetes mellitus without complications; C34.90 Malignant neoplasm of unspecified part of unspecified bronchus or lung; Z79.82 Long term (current) use of aspirin; Z79.84 Long term (current) use of oral hypoglycemic drugs; Z87.891 Personal history of nicotine dependence
CPT/HCPCS: 36415; 71010; 80053; 81003; 83690; 85025; J7030; Z7502

== ENCOUNTER 2017-10-20 13:40 | Inpatient (IN) | END 2017-10-31 12:30 | disposition short-term general hospital (02) | DRG 64 ==